=== PATIENT | female | born 1935 | race Caucasian/White ===

== ENCOUNTER 2017-01-18 10:14 | Outpatient (CLI) | payer MEDICARE, BC ==
--- NOTE | 2017-01-18 15:34 | CT ---
CT THORAX WITH IV CONTRAST: 01/18/2017 HISTORY: Breast cancer with history of right lumpectomy. COMPARISON: CT angiogram thorax on 01/15/2006. FINDINGS: There is a low density area within the right breast. There is suggestion of a small nodular density also in the right breast, measuring 11 mm. There is also suggestion of a nodular density in a more posterior depth of the right breast as well. There is mild skin thickening on the right compared t o the left. Vascular calcifications are seen in the coronary arteries, as well as in the thoracic aorta, with ca lcification of the mitral valve annulus. There is no evidence of lymphadenopathy. There is mild scarring seen at the posterior aspect of the upper lobes, near each lung apex. The hugo ngs are otherwise clear. There is no discrete pulmonary nodule, mass, or pleural effusion. The visualized upper abdomen demonstrates evidence of a prior cholecystectomy, with calcified granul omata in the spleen. Multilevel degenerative changes are seen in the thoracic spine. There is glenohumeral osteoarthropathy on the right with degenerative changes in the spine. There is a mixed lichen sclerotic density seen within the right aspect of the sternum; however, this is a stable finding, dating back to a study on 01/15/2006, and has the appearance of a lesion of lo w biological activity. A sclerotic focus is seen within the posterior right second rib, as well as in a mid thoracic vertebral body, which have appearances most suggestive of bone islands. No suspic ious sclerotic lesion or lytic lesion is seen within the visualized osseous structures. IMPRESSION: 1. Small amount of fluid within the right breast, as well as nodular densities in the right breast, adjacent to the region of fluid. There is mild skin thickening on the right, which may be related t o prior therapy. However, findings in the breast would be better evaluated with mammography. 2. No pulmonary nodule or mass is seen within the lungs bilaterally. Minimal chronic lung changes are present. 3. Mixed lytic and sclerotic lesion, which has the appearance of a lesion of low biological activit y in the sternum. This is unchanged compared to a study dating back to 2005. 4. Probable bone islands in the right posterior second rib, as well as a mid thoracic vertebral bod y. 5. Multilevel degenerative changes seen in the thoracic spine. 6. No evidence of lymphadenopathy. POS: [facility]
[2017-01-18] MEDS ORDERED: Iopamidol 370 76% 100 ML VIAL ONE (15:38)
== END 2017-01-18 10:15 | disposition home or self-care (01) ==
LOC: CT 10:14
PROVIDERS: ATTEND Internal Medicine Hematology & Oncology
DX: C50.411 Malignant neoplasm of upper-outer quadrant of right female breast (principal); M47.814 Spondylosis without myelopathy or radiculopathy, thoracic region; M89.8X9 Other specified disorders of bone, unspecified site; R92.8 Other abnormal and inconclusive findings on diagnostic imaging of breast
CPT/HCPCS: 71260

== ENCOUNTER 2017-04-27 13:41 | Outpatient (CLI) | payer MEDICARE, BC | END 2017-04-27 13:42 | disposition home or self-care (01) | LOC: BICMAMMO 13:41 | PROVIDERS: ATTEND Internal Medicine Hematology & Oncology | DX: Z13.820 Encounter for screening for osteoporosis (principal); C50.411 Malignant neoplasm of upper-outer quadrant of right female breast | CPT/HCPCS: 77080 ==

== ENCOUNTER 2018-10-13 07:52 | Inpatient (IN) | payer MEDICARE, BC ==
--- NOTE | 2018-10-13 08:53 | CT ---
EXAM: CT of the cervical spine without contrast HISTORY: Fall from standing with neck pain COMPARISON: None TECHNIQUE: Multiple contiguous axial images were obtained in a CT of the cervical spine without contr ast. Sagittal and coronal reformats were performed. FINDINGS: The vertebral bodies demonstrate normal height and alignment without fracture or subluxatio n. Severe degenerative changes are seen throughout the cervical spine. The patient has had laminectomies throughout the majority of the mid cervical spine. No prevertebral soft tissue swellin g is seen. The posterior facets are well aligned. Normal alignment of the skull base with the cervical spine is seen. The lung apices and cervical soft tissues are unremarkable. IMPRESSION: No evidence of acute osseous abnormality of the cervical spine.
--- NOTE | 2018-10-13 08:53 | CT ---
CT Head without IV contrast COMPARISON: None. HISTORY: Fall from standing position after losing balance. Hit back of head. Injury. Patient on Plavix TECHNIQUE: Axial CT imaging at 5 mm intervals from vertex through skull base without contrast FINDINGS: There is no evidence of an acute infarction, hemorrhage, mass effect, or midline shift. There is decr eased attenuation seen in the periventricular white matter which is nonspecific but likely attributable to chronic small vessel ischemic changes. There is mild cerebral volume loss. The ventri cular system is normal in size, shape, and position for the degree of sulcal atrophy. Visualized paranasal sinuses are clear. Osseous structures appear intact. IMPRESSION: 1. No acute intracranial abnormality demonstrated. 2. Chronic small vessel ischemic changes and cerebral volume loss.
--- NOTE | 2018-10-13 09:39 | RAD ---
EXAM: Right rib series with chest x-ray HISTORY: Rib pain COMPARISON: None FINDINGS: Single view of the chest shows a normal sized cardiomediastinal silhouette. There is no danilo dence of consolidation, mass, or pleural effusion. Multiple views of the right ribs shows no evidence of displaced rib fracture. No underlying pleural t hickening or pneumothorax are seen. IMPRESSION: 1. No evidence of displaced rib fracture. 2. No evidence of acute cardiopulmonary disease.
[2018-10-13 09:56] LABS: #Eosinphils 0.1 thou/uL (0.0-0.7); #Lymphocytes 0.7 thou/uL (1.20-3.40); #Neutrophils 9.1 thou/uL (1.40-6.50); %Basophils 0.2 % (0.0-1.0); %Eosinophils 0.9 % (0.0-10.0); %Lymphocytes 6.7 % (21.0-51.0); %Neutrophils 83.2 % (42.0-75.0); Hemoglobin 9.8 g/dL (12.0-16.0); Mean Corpuscular HGB CONC 32.5 g/dL (32.0-36.0); Mean Corpuscular Hemoglobin 29.9 pg (27.0-31.0); Mean Corpuscular Volume 92.1 fL (78.0-98.0); Mean Platelet Volume 6.2 fL (7.4-10.4); Platelet Count 269 thou/uL (130-400); RBC Distribution Width 12.6 % (11.5-14.5); Red Blood Cell (RBC) Count 3.27 mill/uL (4.20-5.40); White Blood Cell (WBC) Count 10.9 thou/uL (4.8-10.8)
[2018-10-13 10:12] LABS: ALT (SGPT) 25 U/L (8-55); AST (SGOT) 21 U/L (5-34); Albumin 3.9 g/dL (3.4-4.8); Alkaline Phosphatase 67 U/L (40-150); Anion Gap 10 mmol/L (10-20); BUN (Urea Nitrogen) 12 mg/dL (9.8-20.1); Bilirubin, Total 0.7 mg/dL (0.2-1.2); Calc. Creatinine Clearance 0 mL/min (70-130); Calcium 9.5 mg/dL (7.8-10.44); Carbon Dioxide 36 mmol/L (23-31); Chloride 88 mmol/L (98-107); Estimated GFR-MDRD 83; Globulin 2.7 g/dL (2.4-3.5); Glucose 194 mg/dL (83-110); Potassium 4.1 mmol/L (3.5-5.1); Protein, Total 6.6 g/dL (6.0-8.3); Sodium 130 mmol/L (136-145)
[2018-10-13] MEDS ORDERED: Aspirin 325 MG TAB ONE (11:16)
[2018-10-13] MEDS ORDERED: Enoxaparin Sodium 80 MG/0.8 ML SYRINGE ONE (11:16)
[2018-10-13] MEDS ORDERED: Ondansetron PF 4 MG/2 ML Vial IVP PRN (13:43)
[2018-10-13] MEDS ORDERED: Ondansetron ODT 4 MG TAB SL PRN (13:43)
[2018-10-13] MEDS ORDERED: Dextrose 5% in Water 1,000 ML IV PRN (14:38)
[2018-10-13] MEDS ORDERED: Dextrose 50% Abboject 50 ML SYRINGE SLOW IVP PRN (14:38)
[2018-10-13 15:43] LABS: Troponin I 0.415 ng/mL (< 0.028)
[2018-10-13] MEDS ORDERED: Nitroglycerin 2% Ointment 1 INCH/1 GM Packet TOP SCH (16:00)
--- NOTE | 2018-10-13 16:50 | HP ---
CHIEF COMPLAINT: Fall. HISTORY OF PRESENT ILLNESS: This patient is an 83-year-old female, who presented to the hospital following a fall. The patient has had a fairly busy recent medical history. About 6 weeks ago, she started developing some problems with fluid retention. She says she underwent some workup at that time and had CHF ruled out. Her son is present and indicates that they actually diagnosed her with COPD and thought that might have been culprit at that time. She has subsequently been dealing with challenges trying to regulate her diuretics and her blood pressure, but apparently it has been a bit of a challenge. On 09/15, the patient was admitted at [facility] with right occipital and thalamic CVA. 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 She was transferred to [place], where she stayed for approximately a week and then was transferred to [facility]. Last week, she was readmitted at [facility] with hyponatremia and urinary tract infection and was apparently initially around 117 sodium, up to 130. She was then discharged to [place] 2 days ago. Today, the patient was going to the bathroom, apparently shortly after standing, she had a fall. She fell backwards to her right side and fell onto a trash can, injuring her right posterior back area. The patient could not be sure if it was purely a mechanical fall or if she had any lightheadedness or if she had any loss of consciousness. She is certain she did not hit her head. She believes she had just finished using the bathroom and had stood by the sink before she fell. She denies any chest pain before or after the episode, and primarily has pain in the right posterior rib cage area, which is increased with breathing. REVIEW OF SYSTEMS: All other systems reviewed. All pertinent positives and negatives noted in history of present illness. PAST MEDICAL HISTORY: Notable for the above mention prior CVA, history of breast cancer with lumpectomy by Dr. Lamas and management by Dr. Castro. She had external beam radiation. She has some urinary retention requiring a Wells catheter, they have been trying to follow up with Urology; however, she has had a number of other medical issues come up, where she has not been able to do that. She also has type 2 diabetes mellitus, hypothyroidism, hyperlipidemia, and hypertension. PAST SURGICAL HISTORY: Cataract-ectomy, C-spine with Dr. Tam, partial colectomy due to a sessile polyp that could not be removed from the scope. She had a ventral hernia repair and the breast lumpectomy as mentioned above by Dr. Lamas. FAMILY HISTORY: Reviewed and noncontributory. SOCIAL HISTORY: The patient is a former smoker, she quit in 2002. She continues to have a glass of wine in the evening. She is . She is a full code. Her son is her medical power of tax associate attorney. They do indicate they will continue to discuss code status for her. ALLERGIES: AMLODIPINE AND FELODIPINE. CURRENT MEDICATIONS: 1. Anastrozole 1 mg daily. 2. Aspirin 81 mg daily. 3. Atorvastatin 40 mg daily. 4. Carvedilol 25 mg daily. 5. Vitamin D3, 2000 units daily. 6. Plavix 75 mg daily. 7. MiraLAX 17 g daily. 8. Humalog, dosing unclear at this point. 9. Hydralazine 100 mg daily. 10. Isosorbide 30 mg daily. 11. Lantus subcu daily. 12. Levothyroxine 125 mcg daily. 13. Lisinopril 40 mg daily. 14. Metformin 500 mg daily. 15. Sodium chloride tablets 1 g b.i.d. PHYSICAL EXAMINATION: VITAL SIGNS: Temperature 98.7, pulse 93, respirations 20, O2 saturation 99% on 2 L nasal cannula, and blood pressure 162/77. GENERAL APPEARANCE: Age-appropriate female, in no distress. She is awake, alert, oriented, pleasant, and cooperative. HEENT: LESLI. No OP lesions. NECK: Supple and symmetric with no lymphadenopathy, JVD, or carotid bruits. HEART: Regular rate and rhythm without murmurs, gallops, or rubs. LUNGS: Clear to auscultation bilaterally. ABDOMEN: Soft, nontender, and nondistended. Positive bowel sounds. No masses. No organomegaly. EXTREMITIES: No cyanosis, clubbing, or edema. MUSCULOSKELETAL: Does reveal ecchymoses and bruising over the right posterior rib cage area. She also has a well-healed posterior cervical incisional scar. : Notable for Wells. NEUROLOGIC: The patient appears to move all extremities spontaneously. Cranial nerves are intact. She appears to be relatively cognitively intact, although the family reports she has had some cognitive issues following the stroke. PSYCHIATRIC: Normal affect and behavior. LABORATORY DATA: White count 10.9, hemoglobin 9.8, platelets 269. Sodium 130, potassium 4.1, chloride 88, CO2 is 36, BUN 12, creatinine 0.68, glucose 194, total bilirubin 0.7, AST 21, ALT 25, alkaline phosphatase 67. Troponin 0.401. Albumin 3.9. CT brain, chronic small-vessel ischemia and cerebral volume loss. C-spine, negative. Rib x-rays, no evidence of displaced fracture. Chest x-ray is normal. EKG shows some ST and T-wave changes in the anterior precordial leads. IMPRESSION AND PLAN: 1. Abnormal EKG suggestive of ischemic changes with elevated troponin, concerning for wee-BY-pjbergd elevation myocardial infarction. The patient actually denied any chest pains or symptoms of cardiac ischemia, and only presented with a fall injury. However, EKG and troponins are concerning. I have notified Dr. Chandler. We will consult him. She is admitted to telemetry. We will get serial enzymes. We will add some Nitropaste as well, keeping her n.p.o. for the moment. The patient did receive therapeutic dose of Lovenox as well as 325 aspirin in the emergency department. 2. Fall injury with right posterior rib contusions. 3. Hyponatremia. The patient appears to be where she was at the time of her discharge a couple of days ago from [facility]. We will continue with salt tablets and fluid restriction. 4. Diabetes mellitus. Holding metformin. Accu-Cheks, sliding scale insulin. 5. History of CVA. Continue aspirin and Plavix. 6. Hypertension. Continue lisinopril, hydralazine, and Imdur. 7. Urinary retention. Continue the indwelling Wells catheter. 8. Anemia with hemoglobin of 9.8, down from 11.4 on 10/05, and she appears to be running about low to mid 11 range. We will need to trend, could be some ecchymoses related to the fall and rib contusion. Job ID: [id number]
[2018-10-13] MEDS: Carvedilol 25 MG TAB PO SCH (17:30)
[2018-10-13] MEDS: hydrALAZINE 25 MG TAB PO SCH ×2 (17:37→20:54)
--- NOTE | 2018-10-13 20:32 | CON ---
DATE OF CONSULTATION: REASON FOR CONSULTATION: Elevated troponin, abnormal EKG. HISTORY OF PRESENT ILLNESS: Ms. Coombs is an 83-year-old woman who is a patient of Dr. Tavares Moreno. She recently presented with a fall. Based on her history and the history from the ER, this appeared to be due to being off balance. The patient does have underlying dementia. She also has significant vascular disease. She has no previous history of documented underlying coronary artery disease. She denies chest pain, pressure, or shortness of breath. Her initial troponin was 0.4. Followup troponin was unchanged. Her CK-MB was also 4.0. PAST MEDICAL HISTORY: Severe carotid disease, recurrent CVA, breast cancer with lumpectomy, dementia, urinary retention, diabetes mellitus, hypothyroidism, hyperlipidemia, hypertension, cataract surgery, partial colectomy, ventral hernia repair, lumpectomy. SOCIAL HISTORY: No current tobacco or alcohol use. ALLERGIES: AMLODIPINE AND FELODIPINE. MEDICATIONS: Include: 1. Aspirin. 2. Atorvastatin. 3. Carvedilol. 4. Vitamin D3. 5. Plavix. 6. MiraLAX. 7. Humalog. 8. Hydralazine. 9. Isosorbide. 10. Lantus. 11. Levothyroxine. 12. Lisinopril. 13. Metformin. REVIEW OF SYSTEMS: A 10-point review of systems is reviewed and as above, otherwise negative. PHYSICAL EXAMINATION: VITAL SIGNS: Blood pressure 130/81, pulse 89, temperature 98.7. GENERAL: Patient is a pleasant 83-year-old female who is in no acute distress. The patient appears their stated age. NEUROLOGIC: The patient is alert and oriented x3 with no focal neurologic deficits. HEENT: Sclerae without icterus. Mouth has moist mucous membranes with normal pallor. NECK: No JVD. Carotid upstroke brisk. No bruits bilaterally. LUNGS: Clear to auscultation with unlabored respirations. BACK: No scoliosis or kyphosis. CARDIAC: Regular rate and rhythm with normal S1 and S2. No S3 or S4 noted. No significant rubs, murmurs, thrills, or gallops noted throughout the precordium. PMI is not displaced. There is no parasternal heave. ABDOMEN: Soft, nontender, nondistended. No peritoneal signs present. No hepatosplenomegaly. No abnormal striae. EXTREMITIES: 2+ femoral and 2+ dorsalis pedis pulses. No cyanosis, clubbing, or edema. SKIN: No gross abnormalities. LABORATORY DATA: Troponin as above. Creatinine 0.6. EKG shows normal sinus rhythm with biphasic T-waves. IMPRESSION: 1. Recent fall. 2. Elevated troponin. 3. Abnormal EKG. 4. Risk factors for coronary artery disease. 5. Dementia. RECOMMENDATIONS: Certainly, a difficult case with Ms. Coombs. She has no current symptoms suggesting angina. She did state Dr. Moreno recommended coronary angiography several years ago, but was not ready to proceed. Her CK-MB appears normal. If she had an event, her event likely occurred several days ago given elevated troponin and normal CK-MB. She is currently stable. I did discuss medical therapy versus coronary angiography. The patient and son are undecided. They are leaning toward medical therapy. Given her underlying dementia, significant vascular disease, previous CVA and no current symptoms, we would certainly agree. We would recommend echo Doppler to assess her LVEF. Otherwise, I have no further recommendations. Job ID: [id number]
[2018-10-13] MEDS: Atorvastatin Calcium 40 MG TAB PO SCH (20:54)
[2018-10-13] MEDS: levETIRAcetam 500 MG TAB PO SCH (20:54)
[2018-10-13] MEDS: Sodium Chloride 1 GM TAB PO SCH (20:55)
[2018-10-13] MEDS: HumaLOG 300 UNITS/3 ML VIAL SC PRN (21:41)
[2018-10-14 05:39] LABS: Troponin I 0.192 ng/mL (< 0.028)
[2018-10-14 05:40] LABS: Anion Gap 12 mmol/L (10-20); BUN (Urea Nitrogen) 25 mg/dL (9.8-20.1); Calc. Creatinine Clearance 47 mL/min (70-130); Carbon Dioxide 33 mmol/L (23-31); Chloride 91 mmol/L (98-107); Estimated GFR-MDRD 51; Glucose 130 mg/dL (83-110); Potassium 4.2 mmol/L (3.5-5.1); Sodium 132 mmol/L (136-145)
[2018-10-14 05:47] LABS: Band 6 % (5-11); Eosinophils 1 % (0-10); Hemoglobin 7.5 g/dL (12.0-16.0); Lymphocytes 20 % (21-51); MDiff Complete? YES; Mean Corpuscular Hemoglobin 30.7 pg (27.0-31.0); Mean Corpuscular Volume 90.3 fL (78.0-98.0); Mean Platelet Volume 6.1 fL (7.4-10.4); Monocytes 11 % (0-10); Neutrophil 62 % (42-75); Platelet Count 169 thou/uL (130-400); Platelet Morphology Comment Appears Adequate; RBC Distribution Width 12.4 % (11.5-14.5); Red Blood Cell (RBC) Count 2.46 mill/uL (4.20-5.40); White Blood Cell (WBC) Count 5.8 thou/uL (4.8-10.8)
[2018-10-14] MEDS: Levothyroxine Sodium 125 MCG TAB PO SCH (05:49)
[2018-10-14] MEDS: Aspirin 81 mg Enteric Coated Tablet PO SCH (08:52)
[2018-10-14] MEDS: levETIRAcetam 500 MG TAB PO SCH ×2 (08:52→20:00)
[2018-10-14] MEDS: Multivit, Therapeutic 1 TAB PO SCH (08:52)
[2018-10-14] MEDS: Carvedilol 25 MG TAB PO SCH ×2 (08:53→17:10)
[2018-10-14] MEDS: Lisinopril 20 MG TAB PO SCH (08:53)
[2018-10-14] MEDS: hydrALAZINE 25 MG TAB PO SCH ×3 (08:55→20:00)
[2018-10-14] MEDS: Anastrozole 1 MG TAB PO SCH (08:56)
[2018-10-14] MEDS: Polyethylene Glycol 3350 17 GM Packet PO SCH (08:57)
[2018-10-14] MEDS: Sodium Chloride 1 GM TAB PO SCH ×2 (08:57→20:00)
[2018-10-14] MEDS ORDERED: Clopidogrel Bisulfate 75 MG TAB PO SCH (09:00)
[2018-10-14] MEDS: HumaLOG 300 UNITS/3 ML VIAL SC PRN ×3 (12:39→21:11)
--- NOTE | 2018-10-14 14:57 | PDOC.HOSPP ---
- Subjective Subjective: 83 y/o female with multiple co morbidities including recent acute CVA, COPD and others admitted after a fall. Complains of generalized weakness. No fever. Still having right posterior chest pain. - Objective Vital Signs & Weight: Vital Signs (12 hours) Temp Pulse Resp BP Pulse Ox 10/14/18 12:43 97.6 F 78 23 H 106/55 L 96 10/14/18 08:56 98 10/14/18 07:06 97.7 F 74 19 121/58 L 98 10/14/18 03:25 97.4 F L 69 16 109/52 L 99 Weight Weight 163 lb 11.2 oz I&O: 10/13/18 10/14/18 10/15/18 06:59 06:59 06:59 Intake Total 370 Output Total 250 Balance 120 Result Diagrams: 10/14/18 04:58 10/14/18 04:58 Additional Labs: Accuchecks 10/14/18 10/14/18 10/13/18 11:04 05:21 20:29 POC Glucose 223 H 140 H 269 H 10/13/18 15:33 POC Glucose 147 H ROS - Review of Systems All systems: All other ROS were reviewed and found negative. - Medication Medications: Active Medications Generic Name Dose Route Start Last Admin Trade Name Freq PRN Reason Stop Dose Admin Anastrozole 1 mg 10/14/18 09:00 10/14/18 08:56 Arimidex PO 1 mg DAILY MATTHEW Administration Aspirin 81 mg 10/14/18 09:00 10/14/18 08:52 Ecotrin PO 81 mg DAILY MATTHEW Administration Atorvastatin Calcium 40 mg 10/13/18 21:00 10/13/18 20:54 Lipitor PO 40 mg HS MATTHEW Administration Carvedilol 25 mg 10/13/18 17:00 10/14/18 08:53 Coreg PO 25 mg BID-WM MATTHEW Administration Cholecalciferol 2,000 units 10/14/18 09:00 10/14/18 08:51 Vitamin D3 PO 2,000 units DAILY MATTHEW Administration Clopidogrel Bisulfate 75 mg 10/14/18 09:00 10/14/18 08:54 Plavix PO 75 mg DAILY MATTHEW Administration Hydralazine HCl 100 mg 10/13/18 15:00 10/14/18 08:55 Apresoline PO 100 mg TID MATTHEW Administration Insulin Human Lispro 0 units 10/13/18 14:38 10/14/18 12:39 Humalog SC 3 unit .MILD SLIDING SCALE PRN Administration Mild Correctional Scale Insulin Human Lispro 0 units 10/13/18 21:09 10/13/18 21:41 Humalog SC 3 unit .BEDTIME SLIDING SC PRN Administration Bedtime Correctional Scale Isosorbide Mononitrate 30 mg 10/14/18 09:00 10/14/18 08:51 Imdur Er PO 30 mg DAILY MATTHEW Administration Levetiracetam 1,000 mg 10/13/18 21:00 10/14/18 08:52 Keppra PO 1,000 mg BID MATTHEW Administration Levothyroxine Sodium 125 mcg 10/14/18 06:00 10/14/18 05:49 Synthroid PO 125 mcg 0600 MATTHEW Administration Lisinopril 40 mg 10/14/18 09:00 10/14/18 08:53 Zestril PO 40 mg DAILY MATTHEW Administration Multivitamins 1 tab 10/14/18 09:00 10/14/18 08:52 Theragran PO 1 tab DAILY MATTHEW Administration Polyethylene Glycol 17 gm 10/14/18 09:00 10/14/18 08:57 Miralax PO 17 gm DAILY MATTHEW Administration Sodium Chloride 1 gm 10/13/18 21:00 10/14/18 08:57 Sodium Chloride PO 1 gm BID MATTHEW Administration - Exam NAD (obese), awake alert Eye: PERRL ENT: normocephalic atraumatic Neck: supple, no JVD, no Thyromegaly Heart: RRR, no murmur Respiratory: no wheezes (fair air entry bilaterally. Right posterior mid chest bruise and tenderness noted.), no ronchi Gastrointestinal: soft, non-tender, non-distended, normal bowel sounds (obese. Wells catheter in place) Extremities: no cyanosis, no edema Neurological: CN's grossly intact Psychiatric: A&O x 3 Hosp A/P (1) Elevated troponin Code(s): R74.8 - ABNORMAL LEVELS OF OTHER SERUM ENZYMES Status: Acute (2) Hyponatremia Code(s): E87.1 - HYPO-OSMOLALITY AND HYPONATREMIA Status: Acute (3) Urinary retention Code(s): R33.9 - RETENTION OF URINE, UNSPECIFIED Status: Acute (4) Diabetes mellitus Code(s): E11.9 - TYPE 2 DIABETES MELLITUS WITHOUT COMPLICATIONS Status: Acute (5) Carotid atherosclerosis Code(s): I65.29 - OCCLUSION AND STENOSIS OF UNSPECIFIED CAROTID ARTERY Status : Acute (6) Contusion of rib on right side Code(s): S20.211A - CONTUSION OF RIGHT FRONT WALL OF THORAX, INITIAL ENCOUNTER Status: Acute (7) Physical deconditioning Code(s): R53.81 - OTHER MALAISE Status: Acute (8) Gait instability Code(s): R26.81 - UNSTEADINESS ON FEET Status: Acute (9) HTN (hypertension) Code(s): I10 - ESSENTIAL (PRIMARY) HYPERTENSION Status: Chronic (10) Hypothyroidism Code(s): E03.9 - HYPOTHYROIDISM, UNSPECIFIED Status: Chronic (11) Obesity (BMI 30.0-34.9) Code(s): E66.9 - OBESITY, UNSPECIFIED Status: Chronic - Plan Continue current medications. Start incentive spirometrty PT/OT eval and treat Continue cardiac medication optimization and patient and relatives elected for medical mgt. Follow labs.
--- NOTE | 2018-10-14 16:47 | PRG ---
DATE OF SERVICE: 10/14/2018 SUBJECTIVE: Ms. Coombs is doing well. No current complaints. No chest pain, pressure, shortness of breath, or associated symptoms. OBJECTIVE: GENERAL: Patient is a pleasant female, who is in no acute distress. The patient appears their stated age. VITAL SIGNS: Blood pressure 128/61, pulse 84, and temperature 98.6. NEUROLOGIC: The patient is alert and oriented x3 with no focal neurologic deficits. HEENT: Sclerae without icterus. Mouth has moist mucous membranes with normal pallor. NECK: No JVD. Carotid upstroke brisk. No bruits bilaterally. LUNGS: Clear to auscultation with unlabored respirations. BACK: No scoliosis or kyphosis. CARDIAC: Regular rate and rhythm with normal S1 and S2. No S3 or S4 noted. No significant rubs, murmurs, thrills, or gallops noted throughout the precordium. PMI is not displaced. There is no parasternal heave. ABDOMEN: Soft, nontender, nondistended. No peritoneal signs present. No hepatosplenomegaly. No abnormal striae. EXTREMITIES: 2+ femoral and 2+ dorsalis pedis pulses. No cyanosis, clubbing, or edema. SKIN: No gross abnormalities. LABORATORY DATA: Troponin 0.192. Hemoglobin 7.5. IMPRESSION: 1. Type 2 myocardial infarction secondary to demand ischemia. 2. Recent fall. 3. Anemia. RECOMMENDATIONS: The patient has had significant drop in her hemoglobin overnight. We will stop Plavix. Continue carvedilol, atorvastatin, and aspirin. Also, continue isosorbide. The patient is opted to proceed with medical therapy. She is not interested in proceeding with a more aggressive approach. We would certainly agree. She has several comorbidities. At this point, it would not be advantageous given no current symptoms. We will review her echo. Job ID: [id number]
[2018-10-14] MEDS: Atorvastatin Calcium 40 MG TAB PO SCH (20:00)
[2018-10-15 04:39] LABS: #Eosinphils 0.1 thou/uL (0.0-0.7); #Lymphocytes 0.6 thou/uL (1.20-3.40); #Monocytes 0.7 thou/uL (0.11-0.59); #Neutrophils 3.9 thou/uL (1.40-6.50); %Basophils 0.1 % (0.0-1.0); %Eosinophils 1.3 % (0.0-10.0); %Lymphocytes 11.5 % (21.0-51.0); %Monocytes 13.5 % (0.0-10.0); %Neutrophils 73.5 % (42.0-75.0); Mean Corpuscular HGB CONC 34.2 g/dL (32.0-36.0); Mean Corpuscular Hemoglobin 31.1 pg (27.0-31.0); Mean Platelet Volume 6.7 fL (7.4-10.4); Platelet Count 158 thou/uL (130-400); RBC Distribution Width 12.3 % (11.5-14.5); Red Blood Cell (RBC) Count 2.24 mill/uL (4.20-5.40); White Blood Cell (WBC) Count 5.3 thou/uL (4.8-10.8)
[2018-10-15 04:57] LABS: Anion Gap 13 mmol/L (10-20); BUN (Urea Nitrogen) 31 mg/dL (9.8-20.1); Calc. Creatinine Clearance 58 mL/min (70-130); Calcium 8.7 mg/dL (7.8-10.44); Carbon Dioxide 31 mmol/L (23-31); Chloride 90 mmol/L (98-107); Estimated GFR-MDRD 62; Glucose 201 mg/dL (83-110); Sodium 130 mmol/L (136-145)
[2018-10-15] MEDS: Levothyroxine Sodium 125 MCG TAB PO SCH (05:24)
[2018-10-15] MEDS: Acetaminophen 325 MG TAB PO PRN (07:58)
[2018-10-15] MEDS: Anastrozole 1 MG TAB PO SCH (08:35)
[2018-10-15] MEDS: Lisinopril 20 MG TAB PO SCH (08:35)
[2018-10-15] MEDS: Sodium Chloride 1 GM TAB PO SCH ×2 (08:35→21:13)
[2018-10-15] MEDS: Multivit, Therapeutic 1 TAB PO SCH (08:35)
[2018-10-15] MEDS: levETIRAcetam 500 MG TAB PO SCH ×2 (08:36→21:13)
[2018-10-15] MEDS: Aspirin 81 mg Enteric Coated Tablet PO SCH (08:36)
[2018-10-15] MEDS: hydrALAZINE 25 MG TAB PO SCH ×3 (08:36→21:13)
[2018-10-15] MEDS: Polyethylene Glycol 3350 17 GM Packet PO SCH (08:37)
[2018-10-15] MEDS: Carvedilol 25 MG TAB PO SCH ×2 (08:37→18:04)
[2018-10-15] MEDS: HumaLOG 300 UNITS/3 ML VIAL SC PRN ×3 (12:09→21:19)
[2018-10-15 13:09] LABS: Bacteria/HPF None Seen HPF (None Seen); WBC/HPF 0-3 HPF (0-3)
[2018-10-15 14:43] LABS: Reticulocyte Count 4.4 % (0.5-1.5)
[2018-10-15 15:01] LABS: Iron 22 ug/dL (50-170); Iron Binding Capacity, Total 238 mcg/dL (265-497)
[2018-10-15 15:39] LABS: Folate (Folic Acid) 14.5 ng/mL (7.0-31.4)
--- NOTE | 2018-10-15 16:22 | PDOC.CTH ---
Cardiology Progress Note - Subjective The pt seen and examined. No overnight events. No cardiac complaints. - Objective Vital Signs Temp Pulse Pulse Pulse Resp BP BP 10/15/18 15:09 98.2 F 85 24 H 10/15/18 13:30 78 85 104/48 L 120/57 L 10/15/18 12:00 98.1 F 75 25 H 10/15/18 08:28 10/15/18 07:32 98.4 F 89 21 H BP Pulse Ox 10/15/18 15:09 129/60 96 10/15/18 13:30 10/15/18 12:00 108/51 L 97 10/15/18 08:28 97 10/15/18 07:32 163/70 H 97 Weight 167 lb 1.6 oz 10/14/18 10/15/18 10/16/18 06:59 06:59 06:59 Intake Total 370 1320 Output Total 250 825 Balance 120 495 - Labs Result Diagrams: 10/15/18 04:17 10/15/18 04:17 Troponin/CKMB CK-MB (CK-2) 4.0 ng/mL (0-6.6) 10/13/18 09:36 Troponin I 0.192 ng/mL (< 0.028) H 10/13/18 14:46 - Assessment/Plan 1. Elevated troponin - The pt is not good candidate for cardiac cath 2/2 anemia (hgb 7.0), hx of recurrent CVA, and dementia 2. HTN - stable 3. HLD - on Statin 4. DM type 2 - 5. Hypothyroidism - 6. Dementia 7. hx of multiple falls; recent event was on 10/14/2018 8. Carotid atherosclerosis - MAR reviewed Pt. seen and eval. by me. I agree with the A/P by the P[employer] TE[employer].Difficult situation for this pt. No BM yet to eval. stools for possible GI blood loss. gjm * Dr Moreno's pt; Dr Chandler will f/u during this admission Review of Systems - Review of Systems Constitutional: reports: weakness EENTM: reports: no symptoms reported Respiratory: reports: no symptoms reported Cardiac (ROS): reports: no symptoms reported ABD/GI: reports: no symptoms reported : reports: no symptoms reported Musculoskeletal: reports: neck pain
--- NOTE | 2018-10-15 17:49 | PDOC.HOSPP ---
- Subjective Subjective: Ms. Coombs was seen today in follow-up of generalized weakness and fall. She does not have any new complaints. She appears quite weak and frail. - Objective Vital Signs & Weight: Vital Signs (12 hours) Temp Pulse Pulse Pulse Resp BP BP 10/15/18 15:09 98.2 F 85 24 H 10/15/18 13:30 78 85 104/48 L 120/57 L 10/15/18 12:00 98.1 F 75 25 H 10/15/18 08:28 10/15/18 07:32 98.4 F 89 21 H BP Pulse Ox 10/15/18 15:09 129/60 96 10/15/18 13:30 10/15/18 12:00 108/51 L 97 10/15/18 08:28 97 10/15/18 07:32 163/70 H 97 Weight Weight 167 lb 1.6 oz I&O: 10/14/18 10/15/18 10/16/18 06:59 06:59 06:59 Intake Total 370 1320 Output Total 250 825 Balance 120 495 Result Diagrams: 10/15/18 04:17 10/15/18 04:17 Additional Labs: Accuchecks 10/15/18 10/15/18 10/15/18 17:00 11:13 05:11 POC Glucose 233 H 293 H 209 H 10/14/18 20:14 POC Glucose 321 H ROS - Review of Systems All systems: All other ROS were reviewed and found negative. - Medication Medications: Active Medications Generic Name Dose Route Start Last Admin Trade Name Freq PRN Reason Stop Dose Admin Acetaminophen 650 mg 10/15/18 07:44 10/15/18 07:58 Tylenol PO 650 mg Q4H PRN Administration Headache/Fever or Pain Albuterol/Ipratropium 3 ml 10/14/18 21:35 10/14/18 23:24 Duoneb NEB 3 ml [id number] PRN Administration SOB &/or Wheezing Anastrozole 1 mg 10/14/18 09:00 10/15/18 08:35 Arimidex PO 1 mg DAILY MATTHEW Administration Aspirin 81 mg 10/14/18 09:00 10/15/18 08:36 Ecotrin PO 81 mg DAILY AMTTHEW Administration Atorvastatin Calcium 40 mg 10/13/18 21:00 10/14/18 20:00 Lipitor PO 40 mg HS MATTHEW Administration Carvedilol 25 mg 10/13/18 17:00 10/15/18 08:37 Coreg PO 25 mg BID-WM MATTHEW Administration Cholecalciferol 2,000 units 10/14/18 09:00 10/15/18 08:36 Vitamin D3 PO 2,000 units DAILY MATTHEW Administration Hydralazine HCl 100 mg 10/13/18 15:00 10/15/18 15:14 Apresoline PO 100 mg TID MATTHEW Administration Insulin Human Lispro 0 units 10/13/18 14:38 10/15/18 12:09 Humalog SC 4 unit .MILD SLIDING SCALE PRN Administration Mild Correctional Scale Insulin Human Lispro 0 units 10/13/18 21:09 10/14/18 21:11 Humalog SC 4 unit .BEDTIME SLIDING SC PRN Administration Bedtime Correctional Scale Isosorbide Mononitrate 30 mg 10/14/18 09:00 10/15/18 08:37 Imdur Er PO 30 mg DAILY MATTHEW Administration Levetiracetam 1,000 mg 10/13/18 21:00 10/15/18 08:36 Keppra PO 1,000 mg BID MATTHEW Administration Levothyroxine Sodium 125 mcg 10/14/18 06:00 10/15/18 05:24 Synthroid PO 125 mcg 0600 MATTHEW Administration Lisinopril 40 mg 10/14/18 09:00 10/15/18 08:35 Zestril PO 40 mg DAILY MATTHEW Administration Multivitamins 1 tab 10/14/18 09:00 10/15/18 08:35 Theragran PO 1 tab DAILY MATTHEW Administration Polyethylene Glycol 17 gm 10/14/18 09:00 10/15/18 08:37 Miralax PO 17 gm DAILY MATTHEW Administration Sodium Chloride 1 gm 10/13/18 21:00 10/15/18 08:35 Sodium Chloride PO 1 gm BID MATTHEW Administration - Exam Eye: PERRL, anicteric sclera ENT: normocephalic atraumatic Heart: RRR, no murmur, no gallops, no rubs Respiratory: CTAB, no wheezes, no rales, no ronchi Gastrointestinal: soft, non-tender, non-distended, normal bowel sounds Extremities: no cyanosis, 1+ LE edema Hosp A/P (1) Elevated troponin Code(s): R74.8 - ABNORMAL LEVELS OF OTHER SERUM ENZYMES Status: Acute (2) Anemia, normocytic normochromic Code(s): D64.9 - ANEMIA, UNSPECIFIED Status: Acute (3) Hyponatremia Code(s): E87.1 - HYPO-OSMOLALITY AND HYPONATREMIA Status: Acute (4) Physical deconditioning Code(s): R53.81 - OTHER MALAISE Status: Acute (5) CKD (chronic kidney disease) stage 2, GFR 60-89 ml/min Code(s): N18.2 - CHRONIC KIDNEY DISEASE, STAGE 2 (MILD) Status: Chronic (6) DM2 (diabetes mellitus, type 2) Status: Chronic (7) HTN (hypertension) Code(s): I10 - ESSENTIAL (PRIMARY) HYPERTENSION Status: Chronic - Plan * Elevated troponins- this is being evaluated by Cardiology. she has decided on non-invasive management, and medical therapy * Echo results were noted * Severe anemia- will check iron studies, and stool for occult blood. She may require transfusion * HTN- Blood pressure is stable * Hyponatremia- stable * Recent CVA- stable
[2018-10-15] MEDS: Atorvastatin Calcium 40 MG TAB PO SCH (21:13)
[2018-10-16] MEDS ORDERED: Furosemide 40 MG/4 ML VIAL ONE (04:14)
[2018-10-16 04:28] LABS: Actual Bicarbonate (HCO3a) 34.8 mEq/L (22-28); Base Excess (BEa) 7.8 mEq/L (-2.0 to +3.0); Calcium, Ionized 1.15 mmol/L (1.12-1.30); Carboxyhemoglobin (COHb) 1.4 gm% (0.0-3.0); O2 Tension (PaO2) 153.7 mmHg (> 60.0); Potassium - ABG Lab 4.26 mmol/L (3.70-5.30); pH, Arterial 7.34 (7.35-7.45)
[2018-10-16 04:29] LABS: CO2 Tension 66.7 mmHg (35.0-45.0)
[2018-10-16 04:30] LABS: ALV-art Gradient 48.125 (0-20)
[2018-10-16 04:45] LABS: #Eosinphils 0.2 thou/uL (0.0-0.7); #Monocytes 0.9 thou/uL (0.11-0.59); #Neutrophils 12.5 thou/uL (1.40-6.50); %Basophils 0.2 % (0.0-1.0); %Eosinophils 1.4 % (0.0-10.0); %Lymphocytes 6.6 % (21.0-51.0); %Monocytes 6.1 % (0.0-10.0); %Neutrophils 85.7 % (42.0-75.0); Hemoglobin 8.1 g/dL (12.0-16.0); Mean Corpuscular Volume 91.4 fL (78.0-98.0); Mean Platelet Volume 6.9 fL (7.4-10.4); Platelet Count 239 thou/uL (130-400); RBC Distribution Width 12.7 % (11.5-14.5); Red Blood Cell (RBC) Count 2.62 mill/uL (4.20-5.40); White Blood Cell (WBC) Count 14.6 thou/uL (4.8-10.8)
[2018-10-16 05:03] LABS: Lactic Acid 1.1 mmol/L (0.5-2.2)
[2018-10-16 05:14] LABS: ALT (SGPT) 19 U/L (8-55); AST (SGOT) 14 U/L (5-34); Albumin 3.7 g/dL (3.4-4.8); Alkaline Phosphatase 53 U/L (40-150); Anion Gap 13 mmol/L (10-20); BUN (Urea Nitrogen) 27 mg/dL (9.8-20.1); Bilirubin, Direct 0.5 mg/dL (0.1-0.3); Calc. Creatinine Clearance 67 mL/min (70-130); Calcium 9.3 mg/dL (7.8-10.44); Carbon Dioxide 32 mmol/L (23-31); Chloride 91 mmol/L (98-107); Estimated GFR-MDRD 71; Glucose 309 mg/dL (83-110); Magnesium 1.6 mg/dL (1.6-2.6); Potassium 4.4 mmol/L (3.5-5.1); Protein, Total 6.5 g/dL (6.0-8.3); Sodium 132 mmol/L (136-145)
[2018-10-16] MEDS: Levothyroxine Sodium 125 MCG TAB PO SCH (06:05)
[2018-10-16] MEDS: HumaLOG 300 UNITS/3 ML VIAL SC PRN ×4 (06:24→21:07)
--- NOTE | 2018-10-16 09:12 | CON ---
DATE OF CONSULTATION: HISTORY OF PRESENT ILLNESS: An 83-year-old female from [place], who on 10/13/2018, sustained a fall, hitting the back of the head, complained of chest pain. X-ray was taken at that time with no new infiltrates were seen. She otherwise denied any other problem. [facility] for ongoing hyponatremia. As of yesterday, she developed an episode of what appears to be diaphoretic, looked in distress. Her sats were low apparently 70% on 2 L. She was transferred back to the ICU and was to be placed on noninvasive ventilation. None was done. Chest x-ray shows what looks like maybe a little bit of cephalization CHF. She was given 40 of Lasix, neb treatment, and transferred to the ICU. This morning, her sats are 96% on 2 L. PAST MEDICAL HISTORY: Otherwise, pertinent for previous CVA, history of hypertension, and diabetes. PAST SURGICAL HISTORY: Previous surgery included breast lumpectomy, neck surgery. She was seen by Cardiology earlier. Hypothyroidism, hyperlipidemia, elevated CK-MB. She apparently has underlying dementia. HABITS: Apparently, alcohol none, tobacco none. HOME MEDICATIONS: Includes, 1. Metformin 500. 2. Hydralazine 100. 3. Melatonin. 4. Zestril 40. 5. Synthroid 125. 6. Keppra 1000 twice a day. 7. Ismo 30. 8. Insulin. 9. Plavix 75. 10. Coreg 25. 11. Aspirin. 12. Arimidex. ALLERGIES: AMLODIPINE. SHE WAS IN THIS HOSPITAL WHEN SHE UNDERWENT A LAMINECTOMY IN 2017. REVIEW OF SYSTEMS: Otherwise unremarkable. PHYSICAL EXAMINATION: GENERAL: She appears to be in no acute distress. VITAL SIGNS: Sats are 97% on 2 L, blood pressure 179/78, pulse rate respiratory rate 18. CHEST: No wheezing or crackles. CARDIAC: Normal S1, S2. No gallops. ABDOMEN: No masses. LABORATORY DATA: White count 14,000, H and H are 8 and 26, platelet count 233, normal. PO2 is 153, pCO2 is 66, pH is 7.34 on 40%. Lytes are normal. Sodium 132. BNP is elevated . IMAGING STUDIES: X-ray shows small pleural effusion. Echo shows diastolic dysfunction. IMPRESSION: 1. Hypoxemia, respiratory failure, diastolic dysfunction, congestive heart failure. 2. History of cerebrovascular accident. 3. History of cervical laminectomy. 4. Hypothyroidism. 5. Diabetes. 6. Seizure disorder. PLAN: Pulmonary cooper, continue supportive care. Continue cardiac care. Pulmonary will follow while in the ICU. Early ambulation and PT. Consultation note, 70 minutes, 50% direct patient care. Job ID: [id number]
--- NOTE | 2018-10-16 09:55 | PDOC.HOSPP ---
- Subjective Subjective: Ms. Coombs was seen today in follow-up of generalized weakness. She was tranferred to the ICU due to hypoxemia. She was placed on supplemental oxygen and is feeling better. Bipap was not started. - Objective Vital Signs & Weight: Vital Signs (12 hours) Pulse Resp BP Pulse Ox 10/16/18 05:25 93 L 10/16/18 04:39 101 H 24 H 98 10/16/18 04:05 71 L 10/15/18 23:15 90 127/58 L Weight Weight 169 lb 5.04 oz Most Recent Monitor Data Heart Rate from ECG 100 NIBP 179/78 NIBP BP-Mean 111 Respiration from ECG 21 SpO2 97 I&O: 10/15/18 10/16/18 10/17/18 06:59 06:59 06:59 Intake Total 1320 1035 Output Total 825 630 Balance 495 405 Result Diagrams: 10/16/18 04:35 10/16/18 04:35 Additional Labs: Accuchecks 10/16/18 10/15/18 10/15/18 04:01 20:05 17:00 POC Glucose 343 H 307 H 233 H 10/15/18 11:13 POC Glucose 293 H ROS - Review of Systems All systems: All other ROS were reviewed and found negative. - Medication Medications: Active Medications Generic Name Dose Route Start Last Admin Trade Name Freq PRN Reason Stop Dose Admin Acetaminophen 650 mg 10/15/18 07:44 10/15/18 07:58 Tylenol PO 650 mg Q4H PRN Administration Headache/Fever or Pain Albuterol/Ipratropium 3 ml 10/14/18 21:35 10/16/18 04:39 Duoneb NEB 3 ml [id number] PRN Administration SOB &/or Wheezing Anastrozole 1 mg 10/14/18 09:00 10/15/18 08:35 Arimidex PO 1 mg DAILY MATTHEW Administration Aspirin 81 mg 10/14/18 09:00 10/15/18 08:36 Ecotrin PO 81 mg DAILY MATTHEW Administration Atorvastatin Calcium 40 mg 10/13/18 21:00 10/15/18 21:13 Lipitor PO 40 mg HS MATTHEW Administration Carvedilol 25 mg 10/13/18 17:00 10/15/18 18:04 Coreg PO 25 mg BID-WM MATTHEW Administration Cholecalciferol 2,000 units 10/14/18 09:00 10/15/18 08:36 Vitamin D3 PO 2,000 units DAILY MATTHEW Administration Hydralazine HCl 100 mg 10/13/18 15:00 10/15/18 21:13 Apresoline PO 100 mg TID MATTHEW Administration Insulin Human Lispro 0 units 10/13/18 14:38 10/16/18 06:24 Humalog SC 5 unit .MILD SLIDING SCALE PRN Administration Mild Correctional Scale Insulin Human Lispro 0 units 10/13/18 21:09 10/15/18 21:19 Humalog SC 4 unit .BEDTIME SLIDING SC PRN Administration Bedtime Correctional Scale Isosorbide Mononitrate 30 mg 10/14/18 09:00 10/15/18 08:37 Imdur Er PO 30 mg DAILY MATTHEW Administration Levetiracetam 1,000 mg 10/13/18 21:00 10/15/18 21:13 Keppra PO 1,000 mg BID MATTHEW Administration Levothyroxine Sodium 125 mcg 10/14/18 06:00 10/16/18 06:05 Synthroid PO 125 mcg 0600 MATTHEW Administration Lisinopril 40 mg 10/14/18 09:00 10/15/18 08:35 Zestril PO 40 mg DAILY MATTHEW Administration Multivitamins 1 tab 10/14/18 09:00 10/15/18 08:35 Theragran PO 1 tab DAILY MATTHEW Administration Polyethylene Glycol 17 gm 10/14/18 09:00 10/15/18 08:37 Miralax PO 17 gm DAILY MATTHEW Administration Sodium Chloride 1 gm 10/13/18 21:00 10/15/18 21:13 Sodium Chloride PO 1 gm BID MATTHEW Administration - Exam Eye: PERRL, anicteric sclera Respiratory: CTAB (+ decreased breath sounds at the bases, and some coarse breath sounds), no ronchi Gastrointestinal: soft, non-tender, non-distended, normal bowel sounds Extremities: no cyanosis, 1+ LE edema Hosp A/P (1) Elevated troponin Code(s): R74.8 - ABNORMAL LEVELS OF OTHER SERUM ENZYMES Status: Acute (2) Anemia, normocytic normochromic Code(s): D64.9 - ANEMIA, UNSPECIFIED Status: Acute (3) Hyponatremia Code(s): E87.1 - HYPO-OSMOLALITY AND HYPONATREMIA Status: Acute (4) Physical deconditioning Code(s): R53.81 - OTHER MALAISE Status: Acute (5) CKD (chronic kidney disease) stage 2, GFR 60-89 ml/min Code(s): N18.2 - CHRONIC KIDNEY DISEASE, STAGE 2 (MILD) Status: Chronic (6) DM2 (diabetes mellitus, type 2) Status: Chronic (7) HTN (hypertension) Code(s): I10 - ESSENTIAL (PRIMARY) HYPERTENSION Status: Chronic - Plan * Elevated Troponins- this is being managed medically. She has opted to not have any invasive studies done * Anemia- the indices are most consistent with anemia of chronic disease, and maybe some degree of iron deficiency as well. Will consider a short coaurse of iron supplementation * HTN- blood pressure is a bit elevated- will observe, may need to adjust medications * DM- blood glucose is a bit elevated- will add a ling acting insulin scheduled * Hyponatremia- stable * Generalized weakness- due to multiple illnesses, and several recent hospitalizations- continue PT/OT * Stable for transfer out of the ICU
[2018-10-16] MEDS ORDERED: hydrALAZINE 20 MG/ML VIAL SLOW IVP PRN (10:00)
--- NOTE | 2018-10-16 10:30 | RAD ---
CHEST 1 VIEW: Date: 10/16/18 INDICATION: History of Type II diabetes, hypoglycemia, and dyspnea. COMPARISON: Prior PA view of the chest dated 10/13/18. FINDINGS: There is cardiomegaly and pulmonary vascular congestion and bilateral pleural effusions. No pneumotho rax is evident. No acute osseous abnormality is evident. IMPRESSION: Findings suspicious for mild CHF. POS: BH
[2018-10-16] MEDS: hydrALAZINE 25 MG TAB PO SCH ×3 (10:56→20:58)
[2018-10-16] MEDS: Carvedilol 25 MG TAB PO SCH ×2 (10:59→16:17)
[2018-10-16] MEDS: Aspirin 81 mg Enteric Coated Tablet PO SCH (11:00)
[2018-10-16] MEDS: Anastrozole 1 MG TAB PO SCH (11:00)
[2018-10-16] MEDS: levETIRAcetam 500 MG TAB PO SCH ×2 (11:01→21:16)
[2018-10-16] MEDS: Lisinopril 20 MG TAB PO SCH (11:02)
[2018-10-16] MEDS: Multivit, Therapeutic 1 TAB PO SCH (11:03)
[2018-10-16] MEDS: Sodium Chloride 1 GM TAB PO SCH ×2 (11:04→21:16)
[2018-10-16] MEDS: Polyethylene Glycol 3350 17 GM Packet PO SCH (11:04)
[2018-10-16] MEDS ORDERED: Furosemide 20 MG/2 ML VIAL SLOW IVP SCH (16:30)
--- NOTE | 2018-10-16 16:59 | PDOC.CTH ---
Cardiology Progress Note - Subjective The pt seen and examined. The pt does not follow commands due to very drowsiness. - Objective Vital Signs Temp Pulse Pulse Pulse Resp BP BP 10/16/18 15:30 97 10/16/18 15:26 97.9 F 97 20 10/16/18 15:00 97 96 143/65 H 10/16/18 12:23 98.3 F 84 18 10/16/18 11:02 149/70 H 10/16/18 11:00 98.5 F 10/16/18 10:56 102 H 149/70 H 10/16/18 10:45 10/16/18 08:00 97.5 F L 10/16/18 05:25 BP BP Pulse Ox 10/16/18 15:30 10/16/18 15:26 143/65 H 97 10/16/18 15:00 135/62 10/16/18 12:23 118/58 L 97 10/16/18 11:02 10/16/18 11:00 10/16/18 10:56 10/16/18 10:45 99 10/16/18 08:00 99 10/16/18 05:25 93 L Weight 169 lb 5.04 oz 10/15/18 10/16/18 10/17/18 06:59 06:59 06:59 Intake Total 1320 1035 0 Output Total 825 630 950 Balance 495 405 -950 - Physical Examination General/Neuro: other: (very drowsiness) Lungs: other: (diminished at bases) Heart: RRR Abdomen: soft Extremities: other: (No edema) - Telemetry Telemetry Rhythm: SR - Labs Result Diagrams: 10/16/18 04:35 10/16/18 04:35 Troponin/CKMB CK-MB (CK-2) 4.0 ng/mL (0-6.6) 10/13/18 09:36 Troponin I 0.192 ng/mL (< 0.028) H 10/13/18 14:46 - Assessment/Plan 1. Elevated troponin - The pt is not good candidate for cardiac cath 2/2 anemia (hgb 7.0), hx of recurrent CVA, and dementia 2. HTN - stable 3. HLD - on Statin 4. DM type 2 - 5. Hypothyroidism - 6. Dementia 7. hx of multiple falls; recent event was on 10/14/2018 8. Carotid atherosclerosis - 9. Anemia - No BM yet to eval. stools for possible GI blood loss 10. Hypoxemia - On 2LNC; MAR reviewed * Dr Moreno's pt; Dr Chandler will f/u during this admission Pt. seen and eval. by me. I agree with the A/P by the OIL LEASE BROKER.[email or web address] Review of Systems - Review of Systems Constitutional: reports: see HPI
[2018-10-16] MEDS: Atorvastatin Calcium 40 MG TAB PO SCH (20:58)
[2018-10-16] MEDS: Insulin Glargine 10 UNITS in Pre-Filled Syringe 1 EACH SC SCH (21:00)
[2018-10-16] MEDS: Melatonin 3 MG TAB PO PRN (21:11)
[2018-10-16] MEDS: Acetaminophen 325 MG TAB PO PRN (21:22)
[2018-10-17] MEDS: Levothyroxine Sodium 125 MCG TAB PO SCH ×3 (05:44→11:23)
[2018-10-17 05:46] LABS: #Eosinphils 0.1 thou/uL (0.0-0.7); #Lymphocytes 0.7 thou/uL (1.20-3.40); #Monocytes 0.8 thou/uL (0.11-0.59); #Neutrophils 5.7 thou/uL (1.40-6.50); %Basophils 0.1 % (0.0-1.0); %Eosinophils 0.9 % (0.0-10.0); %Lymphocytes 9.6 % (21.0-51.0); %Monocytes 10.5 % (0.0-10.0); %Neutrophils 78.9 % (42.0-75.0); Hemoglobin 6.7 g/dL (12.0-16.0); Mean Corpuscular HGB CONC 33.5 g/dL (32.0-36.0); Mean Corpuscular Hemoglobin 30.9 pg (27.0-31.0); Mean Corpuscular Volume 92.3 fL (78.0-98.0); Mean Platelet Volume 7.1 fL (7.4-10.4); Platelet Count 195 thou/uL (130-400); RBC Distribution Width 12.6 % (11.5-14.5); Red Blood Cell (RBC) Count 2.15 mill/uL (4.20-5.40); White Blood Cell (WBC) Count 7.3 thou/uL (4.8-10.8)
[2018-10-17 06:05] LABS: Anion Gap 14 mmol/L (10-20); BUN (Urea Nitrogen) 33 mg/dL (9.8-20.1); Calc. Creatinine Clearance 67 mL/min (70-130); Carbon Dioxide 32 mmol/L (23-31); Chloride 88 mmol/L (98-107); Estimated GFR-MDRD 71; Glucose 190 mg/dL (83-110); Potassium 3.9 mmol/L (3.5-5.1); Sodium 130 mmol/L (136-145)
[2018-10-17 07:39] LABS: Hemoglobin 7.6 g/dL (12.0-16.0); Platelet Count 219 thou/uL (130-400)
--- NOTE | 2018-10-17 08:55 | EKG ---
Test Reason : Blood Pressure : / mmHG Vent. Rate : 088 BPM Atrial Rate : 088 BPM P-R Int : 142 ms QRS Dur : 074 ms QT Int : 396 ms P-R-T Axes : 074 033 101 degrees QTc Int : 479 ms Normal sinus rhythm Prolonged QT Abnormal ECG When compared with ECG of 09-OCT-2007 14:04, ST elevation now present in Anterior leads T wave inversion now evident in Anterolateral leads QT has lengthened Confirmed by DR. Angela DC ([id number]) on 10/17/2018 8:55:39 AM Referred By: SUZANNA Confirmed By:DR. Angela DC
[2018-10-17] MEDS ORDERED: Furosemide 40 MG/4 ML VIAL ONE (09:10)
[2018-10-17] MEDS ORDERED: Furosemide 40 MG/4 ML VIAL SLOW IVP SCH (09:15)
--- NOTE | 2018-10-17 09:20 | PRG ---
DATE OF SERVICE: 10/17/2018 SUBJECTIVE: Ms. Coombs has increased shortness of breath today. She has been using BiPAP at night. She appears to have wheezing. She has opted for medical therapy and not proceed with a more aggressive approach. Her hemoglobin remains low. OBJECTIVE: VITAL SIGNS: Blood pressure 116/77, pulse 84, and temperature 97.5. LUNGS: Wheezing noted bilaterally. Mild crackles present. HEART: Regular rate and rhythm. ABDOMEN: Soft, nontender, and nondistended. EXTREMITIES: No edema. PERTINENT LABORATORY DATA: Hemoglobin 7.6, up from 6.7. Creatinine 0.79 and sodium 130. IMPRESSION: 1. Shortness of breath. 2. Elevated troponin likely secondary to demand ischemia. 3. Abnormal EKG. 4. Anemia. RECOMMENDATIONS: At this point, we will continue with medical therapy. Recommend neb treatments. Add Lasix 40 mg IV x1. Hemoglobin appears improved. Job ID: [id number]
--- NOTE | 2018-10-17 09:38 | PRG ---
DATE OF SERVICE: 10/17/2018 SUBJECTIVE: This morning, she has a more difficulty breathing. OBJECTIVE: GENERAL: On examination, she is clearly in distress. VITAL SIGNS: Blood pressure is elevated at 194/104, pulse 106, temperature is 97.6, respiratory rate 31. CHEST: Decreased breath sounds. Bilateral crackles. CARDIAC: Normal S1 and S2. No gallops. ABDOMEN: No masses. LABORATORY DATA: H and H of 7 and 26. X-ray shows evidence of bilateral lower lobe infiltrates, consistent with fluid overload. IMPRESSION: 1. Respiratory failure. 2. Congestive heart failure. 3. Diastolic dysfunction. 4. Anemia. PLAN: She needs to be placed back on BiPAP again. Continue neb treatments, supportive care, empiric antibiotics. We will follow. Job ID: [id number]
[2018-10-17] MEDS: Insulin Glargine 10 UNITS in Pre-Filled Syringe 1 EACH SC SCH ×2 (09:56→21:23)
--- NOTE | 2018-10-17 10:36 | PDOC.HOSPP ---
- Subjective Subjective: Ms. Coombs was seen today in follow-up of respiratory failure and elevated troponins at approximately 9:30 am. When I came into the room she was dyspneic, and could hear audible wheezing and stridor. She is did not have complaints, but she has some memory problems according to family, therefore this is not reliable. - Objective Vital Signs & Weight: Vital Signs (12 hours) Temp Pulse Resp BP BP Pulse Ox 10/17/18 09:55 96 10/17/18 09:52 89 26 H 95 10/17/18 09:15 107 H 184/99 H 10/17/18 09:04 106 H 194/104 H 10/17/18 08:57 97.6 F 107 H 31 H 194/104 H 98 10/17/18 08:46 92 L 10/17/18 08:39 108 H 28 H 10/17/18 03:30 97.5 F L 84 20 169/77 H 98 10/17/18 03:24 96 22 H 98 10/17/18 00:00 76 16 116/54 L 96 Weight Weight 157 lb 8 oz Most Recent Monitor Data Heart Rate from ECG 89 NIBP 120/57 NIBP BP-Mean 78 Respiration from ECG 23 SpO2 96 I&O: 10/16/18 10/17/18 10/18/18 06:59 06:59 06:59 Intake Total 1035 0 Output Total 630 950 Balance 405 -950 Result Diagrams: 10/17/18 07:32 10/17/18 05:16 Additional Labs: Accuchecks 10/17/18 10/17/18 10/16/18 10:19 05:21 20:17 POC Glucose 335 H 191 H 380 H 10/16/18 10/16/18 16:51 11:16 POC Glucose 324 H 186 H ROS - Review of Systems All systems: All other ROS were reviewed and found negative. - Medication Medications: Active Medications Generic Name Dose Route Start Last Admin Trade Name Freq PRN Reason Stop Dose Admin Acetaminophen 650 mg 10/15/18 07:44 10/16/18 21:22 Tylenol PO 650 mg Q4H PRN Administration Headache/Fever or Pain Anastrozole 1 mg 10/14/18 09:00 10/16/18 11:00 Arimidex PO 1 mg DAILY MATTHEW Administration Aspirin 81 mg 10/14/18 09:00 10/16/18 11:00 Ecotrin PO 81 mg DAILY MATTHEW Administration Atorvastatin Calcium 40 mg 10/13/18 21:00 10/16/18 20:58 Lipitor PO 40 mg HS MATTHEW Administration Carvedilol 25 mg 10/13/18 17:00 10/16/18 16:17 Coreg PO 25 mg BID-WM MATTHEW Administration Cholecalciferol 2,000 units 10/14/18 09:00 10/16/18 11:01 Vitamin D3 PO 2,000 units DAILY MATTHEW Administration Furosemide 40 mg 10/17/18 09:15 10/17/18 09:15 Lasix SLOW IVP 10/17/18 11:15 40 mg NOW MATTHEW Administration Hydralazine HCl 100 mg 10/13/18 15:00 10/16/18 20:58 Apresoline PO 100 mg TID MATTHEW Administration Hydralazine HCl 10 mg 10/16/18 10:00 10/17/18 09:04 Apresoline SLOW IVP 10 mg Q4H PRN Administration SBP > 180 and HR < 70 Insulin Glargine 10 units/ 0.1 mls @ 0 mls/hr 10/16/18 21:00 10/16/18 21:00 Miscellaneous Medication SC 0.1 mls HS MATTHEW Administration Insulin Glargine 10 units/ 0.1 mls @ 0 mls/hr 10/17/18 09:00 10/17/18 09:56 Miscellaneous Medication SC 0.1 mls QAM MATTHEW Administration Insulin Human Lispro 0 units 10/13/18 14:38 10/16/18 16:53 Humalog SC 5 unit .MILD SLIDING SCALE PRN Administration Mild Correctional Scale Insulin Human Lispro 0 units 10/13/18 21:09 10/16/18 21:07 Humalog SC 5 unit .BEDTIME SLIDING SC PRN Administration Bedtime Correctional Scale Isosorbide Mononitrate 30 mg 10/14/18 09:00 10/16/18 10:58 Imdur Er PO 30 mg DAILY MATTHEW Administration Levetiracetam 1,000 mg 10/13/18 21:00 10/16/18 21:16 Keppra PO 1,000 mg BID MATTHEW Administration Levothyroxine Sodium 125 mcg 10/14/18 06:00 10/17/18 05:44 Synthroid PO 125 mcg 0600 MATTHEW Administration Lisinopril 40 mg 10/14/18 09:00 10/16/18 11:02 Zestril PO 40 mg DAILY MATTHEW Administration Melatonin 6 mg 10/13/18 14:36 10/16/18 21:11 Melatonin PO 6 mg DAILY PRN Administration Insomnia Multivitamins 1 tab 10/14/18 09:00 10/16/18 11:03 Theragran PO 1 tab DAILY MATTHEW Administration Polyethylene Glycol 17 gm 10/14/18 09:00 10/16/18 11:04 Miralax PO 17 gm DAILY MATTHEW Administration Sodium Chloride 1 gm 10/13/18 21:00 10/16/18 21:16 Sodium Chloride PO 1 gm BID MATTHEW Administration - Exam Eye: PERRL, anicteric sclera Heart: RRR, no murmur, no gallops Respiratory: rales (+ rales bilaterally in both lung menendez), wheezes (+ faint wheezing bilaterally, and stridor) Gastrointestinal: soft, non-tender, normal bowel sounds, no palpable masses, distended (+ mildly distended) Extremities: 1+ LE edema (+ edema in both upper and lower extremities) Skin: normal turgor, no lesions, no rashes Hosp A/P (1) Acute hypoxemic respiratory failure Code(s): J96.01 - ACUTE RESPIRATORY FAILURE WITH HYPOXIA Status: Acute (2) Acute on chronic diastolic heart failure Code(s): I50.33 - ACUTE ON CHRONIC DIASTOLIC (CONGESTIVE) HEART FAILURE Status : Acute (3) Elevated troponin Code(s): R74.8 - ABNORMAL LEVELS OF OTHER SERUM ENZYMES Status: Acute (4) Anemia, normocytic normochromic Code(s): D64.9 - ANEMIA, UNSPECIFIED Status: Acute (5) Hyponatremia Code(s): E87.1 - HYPO-OSMOLALITY AND HYPONATREMIA Status: Acute (6) Physical deconditioning Code(s): R53.81 - OTHER MALAISE Status: Acute (7) CKD (chronic kidney disease) stage 2, GFR 60-89 ml/min Code(s): N18.2 - CHRONIC KIDNEY DISEASE, STAGE 2 (MILD) Status: Chronic (8) DM2 (diabetes mellitus, type 2) Status: Chronic (9) HTN (hypertension) Code(s): I10 - ESSENTIAL (PRIMARY) HYPERTENSION Status: Chronic - Plan * Acute respiratory failure with hypoxemia- the patient became dyspneic this morning. She appears clinically to be volume overloaded. Lasix has been ordered , and she was given a racemic epi treatment. Due to continued dyspnea, she is being moved to the [facility] and placed on BiPAP. * Rocephin has been added to her regimen * Anemia- due to chronic disease, as well as mild iron deficiency- will need to make sure blood draws are not close to the IV site, it may be diluting the sample- repeat H&H was a bit higher- will hold off on transfuse, and treat with short course of iron therapy * CAD- with elevated troponins- she recently had an CO- and also a CVA- she has severe deconditioning- the plan is to avoid invasive treatment, and treat medically * DM- blood glucose is a bit elevated- will monitor, will continue SSI,and low dose scheduled insulin * CKD- stable * HTN- blood pressure is elevated- but likely from the respiratory failure and volume overload- will re-check later * Hyponatremia- stable
[2018-10-17] MEDS: HumaLOG 300 UNITS/3 ML VIAL SC PRN ×2 (10:46→16:45)
[2018-10-17] MEDS: cefTRIAXone\\ROCEPHIN 1 GM in Sodium Chloride 0.9% 100 ML IVPB SCH (10:46)
[2018-10-17] MEDS: methylPREDNISolone Sod Succ/PF 125 MG/2 ML VIAL IVP SCH ×2 (10:47→21:22)
[2018-10-17] MEDS: Carvedilol 25 MG TAB PO SCH ×2 (11:23→16:45)
[2018-10-17] MEDS: Anastrozole 1 MG TAB PO SCH (11:23)
[2018-10-17] MEDS: hydrALAZINE 25 MG TAB PO SCH ×3 (11:24→21:23)
[2018-10-17] MEDS: Aspirin 81 mg Enteric Coated Tablet PO SCH (11:24)
[2018-10-17] MEDS: levETIRAcetam 500 MG TAB PO SCH ×2 (11:25→21:23)
[2018-10-17] MEDS: Multivit, Therapeutic 1 TAB PO SCH (11:25)
[2018-10-17] MEDS: Lisinopril 20 MG TAB PO SCH (11:25)
[2018-10-17] MEDS: Polyethylene Glycol 3350 17 GM Packet PO SCH (11:26)
[2018-10-17] MEDS: Sodium Chloride 1 GM TAB PO SCH ×2 (11:27→21:24)
[2018-10-17] MEDS: Acetaminophen 325 MG TAB PO PRN (16:45)
[2018-10-17] MEDS: Atorvastatin Calcium 40 MG TAB PO SCH (21:24)
[2018-10-18] MEDS: methylPREDNISolone Sod Succ/PF 125 MG/2 ML VIAL IVP SCH ×2 (09:04→21:25)
[2018-10-18] MEDS: Anastrozole 1 MG TAB PO SCH (09:04)
[2018-10-18] MEDS: Insulin Glargine 10 UNITS in Pre-Filled Syringe 1 EACH SC SCH ×2 (09:04→21:25)
[2018-10-18] MEDS: Lisinopril 20 MG TAB PO SCH (09:04)
[2018-10-18] MEDS: Polyethylene Glycol 3350 17 GM Packet PO SCH (09:04)
[2018-10-18] MEDS: Sodium Chloride 1 GM TAB PO SCH ×2 (09:04→21:25)
[2018-10-18] MEDS: hydrALAZINE 25 MG TAB PO SCH ×3 (09:05→21:25)
[2018-10-18] MEDS: Carvedilol 25 MG TAB PO SCH ×2 (09:05→17:51)
[2018-10-18] MEDS: levETIRAcetam 500 MG TAB PO SCH ×2 (09:05→21:25)
[2018-10-18] MEDS: Ferrous Sulfate 325 MG TAB PO SCH (09:05)
[2018-10-18] MEDS: Aspirin 81 mg Enteric Coated Tablet PO SCH (09:06)
[2018-10-18] MEDS: Multivit, Therapeutic 1 TAB PO SCH (09:06)
--- NOTE | 2018-10-18 09:08 | RAD ---
XR Chest 1 View Portable History: Congestive heart failure Comparison: Radiograph 2 days prior Findings: Heart size continues to be enlarged. Similar bilateral pleural effusions. Mild pulmonary ve nous congestion. No pneumothorax. No acute osseous abnormality. Impression: Similar examination of the chest.
[2018-10-18 09:58] LABS: #Lymphocytes 0.9 thou/uL (1.20-3.40); #Monocytes 0.4 thou/uL (0.11-0.59); #Neutrophils 8.7 thou/uL (1.40-6.50); %Basophils 0.1 % (0.0-1.0); %Eosinophils 0.2 % (0.0-10.0); %Lymphocytes 8.5 % (21.0-51.0); %Neutrophils 87.2 % (42.0-75.0); Hemoglobin 8.1 g/dL (12.0-16.0); Mean Corpuscular HGB CONC 33.3 g/dL (32.0-36.0); Mean Corpuscular Hemoglobin 29.8 pg (27.0-31.0); Mean Corpuscular Volume 89.5 fL (78.0-98.0); Mean Platelet Volume 7.3 fL (7.4-10.4); Platelet Count 299 thou/uL (130-400); RBC Distribution Width 12.6 % (11.5-14.5); Red Blood Cell (RBC) Count 2.72 mill/uL (4.20-5.40)
[2018-10-18 10:05] LABS: BUN (Urea Nitrogen) 34 mg/dL (9.8-20.1); Calc. Creatinine Clearance 68 mL/min (70-130); Calcium 9.8 mg/dL (7.8-10.44); Carbon Dioxide 30 mmol/L (23-31); Chloride 87 mmol/L (98-107); Estimated GFR-MDRD 72; Glucose 214 mg/dL (83-110); Potassium 3.9 mmol/L (3.5-5.1); Sodium 134 mmol/L (136-145)
--- NOTE | 2018-10-18 10:34 | PRG ---
DATE OF SERVICE: 10/18/2018 SUBJECTIVE: This morning, she is much more awake, alert, responsive. Less short of breath. She is hungry. Off the BiPAP. OBJECTIVE: VITAL SIGNS: Saturations are 100%, temperature 98, respirations 20, and blood pressure 155/77. CHEST: Decreased breath sounds. No wheezing. CARDIAC: Normal S1 and S2. No gallops. ABDOMEN: No masses. ASSESSMENT: 1. Congestive heart failure. 2. Possibly pneumonia. 3. Respiratory failure. 4. Do not resuscitate. 5. Anemia. PLAN: Continue PT, supportive care. Switch over to oral medication tomorrow. Job ID: [id number]
[2018-10-18 11:29] LABS: Anion Gap 21 mmol/L (10-20)
[2018-10-18] MEDS: HumaLOG 300 UNITS/3 ML VIAL SC PRN ×3 (12:46→21:24)
[2018-10-18] MEDS: cefTRIAXone\\ROCEPHIN 1 GM in Sodium Chloride 0.9% 100 ML IVPB SCH (12:46)
--- NOTE | 2018-10-18 14:09 | PRG ---
DATE OF SERVICE: 10/18/2018 SUBJECTIVE: Ms. Coombs is doing better. Yesterday, she had difficulty with shortness of breath. She was transferred to the intermediate care unit, where she was placed on BiPAP. She was also given Lasix for diuresis. She continues to be confused. No current complaints. OBJECTIVE: VITAL SIGNS: Blood pressure 145/68, pulse 105, temperature afebrile. LUNGS: Clear to auscultation. No wheezing. Mild crackles noted bilaterally. HEART: Regular rate and rhythm. ABDOMEN: Soft, nontender, and nondistended. EXTREMITIES: No edema. PERTINENT LABORATORY DATA: Hemoglobin 8.1. Creatinine 0.77. IMPRESSION: 1. Shortness of breath. 2. Type 2 myocardial infarction. 3. Dementia. RECOMMENDATIONS: 1. At this point, continue aggressive medical therapy. 2. Avoid beta-iraj therapy due to wheezing. 3. Continue aspirin and atorvastatin. She is currently on carvedilol and may consider decreasing dose if she continues to have issues with wheezing. May switch to calcium-channel blockade. 4. Otherwise, options appear limited based on her comorbidities. Job ID: [id number]
--- NOTE | 2018-10-18 17:50 | PDOC.HOSPP ---
- Subjective Subjective: Says she is doing better today. Says she is breathing well now. - Objective Vital Signs & Weight: Vital Signs (12 hours) Temp Pulse Pulse Pulse Resp BP BP 10/18/18 15:28 98.6 F 10/18/18 15:15 104 H 102 H 155/81 H 10/18/18 14:08 105 H 10/18/18 13:36 10/18/18 13:35 105 H 22 H 10/18/18 10:39 103 H 99 118/59 L 10/18/18 10:34 99.5 F 10/18/18 09:05 100 169/98 H 10/18/18 09:04 169/98 H 10/18/18 07:39 100 20 10/18/18 07:38 100 16 10/18/18 07:14 98.2 F BP Pulse Ox Pulse Ox Pulse Ox 10/18/18 15:28 10/18/18 15:15 144/79 H 94 L 93 L 10/18/18 14:08 10/18/18 13:36 99 10/18/18 13:35 99 10/18/18 10:39 122/63 91 L 95 10/18/18 10:34 10/18/18 09:05 10/18/18 09:04 10/18/18 07:39 96 10/18/18 07:38 96 10/18/18 07:14 Weight Weight 168 lb Most Recent Monitor Data Heart Rate from ECG 105 NIBP 143/73 NIBP BP-Mean 96 Respiration from ECG 21 SpO2 93 I&O: 10/17/18 10/18/18 10/19/18 06:59 06:59 06:59 Intake Total 0 420 Output Total 950 1450 Balance -950 -1030 Result Diagrams: 10/18/18 09:39 10/18/18 09:39 Additional Labs: Accuchecks 10/18/18 10/18/18 10/18/18 16:14 10:16 05:32 POC Glucose 328 H 330 H 229 H 10/17/18 19:49 POC Glucose 191 H ROS - Review of Systems All systems: All other ROS were reviewed and found negative. - Medication Medications: Active Medications Generic Name Dose Route Start Last Admin Trade Name Freq PRN Reason Stop Dose Admin Acetaminophen 650 mg 10/15/18 07:44 10/17/18 16:45 Tylenol PO 650 mg Q4H PRN Administration Headache/Fever or Pain Albuterol/Ipratropium 3 ml 10/17/18 13:00 10/18/18 13:35 Duoneb NEB 3 ml [id number] MATTHEW Administration Anastrozole 1 mg 10/14/18 09:00 10/18/18 09:04 Arimidex PO 1 mg DAILY MATTHEW Administration Aspirin 81 mg 10/14/18 09:00 10/18/18 09:06 Ecotrin PO 81 mg DAILY MATTHEW Administration Atorvastatin Calcium 40 mg 10/13/18 21:00 10/17/18 21:24 Lipitor PO 40 mg HS MATTHEW Administration Carvedilol 25 mg 10/13/18 17:00 10/18/18 09:05 Coreg PO 25 mg BID-WM MATTHEW Administration Cholecalciferol 2,000 units 10/14/18 09:00 10/18/18 09:06 Vitamin D3 PO 2,000 units DAILY MATTHEW Administration Ferrous Sulfate 325 mg 10/18/18 08:00 10/18/18 09:05 Feosol PO 325 mg QAM-WM MATTHEW Administration Hydralazine HCl 100 mg 10/13/18 15:00 10/18/18 14:08 Apresoline PO 100 mg TID MATTHEW Administration Hydralazine HCl 10 mg 10/16/18 10:00 10/17/18 09:04 Apresoline SLOW IVP 10 mg Q4H PRN Administration SBP > 180 and HR < 70 Insulin Glargine 10 units/ 0.1 mls @ 0 mls/hr 10/16/18 21:00 10/17/18 21:23 Miscellaneous Medication SC 0.1 mls HS MATTHEW Administration Insulin Glargine 10 units/ 0.1 mls @ 0 mls/hr 10/17/18 09:00 10/18/18 09:04 Miscellaneous Medication SC 0.1 mls QAM MATTHEW Administration Ceftriaxone Sodium 1 gm/ 100 mls @ 200 mls/hr 10/17/18 11:00 10/18/18 12:46 Sodium Chloride IVPB 100 mls 1100 MATTHEW Administration Insulin Human Lispro 0 units 10/13/18 14:38 10/18/18 12:46 Humalog SC 5 unit .MILD SLIDING SCALE PRN Administration Mild Correctional Scale Insulin Human Lispro 0 units 10/13/18 21:09 10/16/18 21:07 Humalog SC 5 unit .BEDTIME SLIDING SC PRN Administration Bedtime Correctional Scale Isosorbide Mononitrate 30 mg 10/14/18 09:00 10/18/18 09:05 Imdur Er PO 30 mg DAILY MATTHEW Administration Levetiracetam 1,000 mg 10/13/18 21:00 10/18/18 09:05 Keppra PO 1,000 mg BID MATTHEW Administration Levothyroxine Sodium 125 mcg 10/14/18 06:00 10/17/18 11:23 Synthroid PO Not Given 0600 AMTTHEW Lisinopril 40 mg 10/14/18 09:00 10/18/18 09:04 Zestril PO 40 mg DAILY MATTHEW Administration Melatonin 6 mg 10/13/18 14:36 10/16/18 21:11 Melatonin PO 6 mg DAILY PRN Administration Insomnia Methylprednisolone Sodium Succinate 40 mg 10/17/18 10:00 10/18/18 09:04 Solu-Medrol IVP 40 mg 1000,2200 MATTHEW Administration Multivitamins 1 tab 10/14/18 09:00 10/18/18 09:06 Theragran PO 1 tab DAILY MATTHEW Administration Pantoprazole Sodium 40 mg 10/17/18 09:00 10/18/18 09:05 Protonix PO 40 mg DAILY MATTHEW Administration Polyethylene Glycol 17 gm 10/14/18 09:00 10/18/18 09:04 Miralax PO 17 gm DAILY MATTHEW Administration Sodium Chloride 1 gm 10/13/18 21:00 10/18/18 09:04 Sodium Chloride PO 1 gm BID MATTHEW Administration - Exam NAD Heart: RRR, no murmur, no gallops, no rubs, normal peripheral pulses Respiratory: rales (Bibasilar rales. Mild scattered wheezes.) Gastrointestinal: soft, non-tender, non-distended, normal bowel sounds, no palpable masses, no hepatomegaly, no splenomegaly, no bruit Extremities: no edema Skin: normal turgor Neurological: CN's grossly intact, no focal deficits Musculoskeletal: normal tone Psychiatric: normal affect (Has very good memory of most events, but confused about some issues.) Hosp A/P (1) Acute hypoxemic respiratory failure Code(s): J96.01 - ACUTE RESPIRATORY FAILURE WITH HYPOXIA Status: Acute (2) Acute on chronic diastolic heart failure Code(s): I50.33 - ACUTE ON CHRONIC DIASTOLIC (CONGESTIVE) HEART FAILURE Status : Acute (3) Anemia, normocytic normochromic Code(s): D64.9 - ANEMIA, UNSPECIFIED Status: Acute (4) Contusion of rib on right side Code(s): S20.211A - CONTUSION OF RIGHT FRONT WALL OF THORAX, INITIAL ENCOUNTER Status: Acute (5) Diabetes mellitus Code(s): E11.9 - TYPE 2 DIABETES MELLITUS WITHOUT COMPLICATIONS Status: Acute (6) Elevated troponin Code(s): R74.8 - ABNORMAL LEVELS OF OTHER SERUM ENZYMES Status: Acute (7) Gait instability Code(s): R26.81 - UNSTEADINESS ON FEET Status: Acute (8) Hyponatremia Code(s): E87.1 - HYPO-OSMOLALITY AND HYPONATREMIA Status: Acute (9) CKD (chronic kidney disease) stage 2, GFR 60-89 ml/min Code(s): N18.2 - CHRONIC KIDNEY DISEASE, STAGE 2 (MILD) Status: Chronic - Plan She had initial fall with trauma to the right posterior rib cage. Had some ekg changes and elevated troponin. Defined as Type II demand ischemia by cardio. Cards following. Subsequently had worsening respiratory distress. Moved to the [facility]. Was to move out and had a setback. Appears to be improved today. Continue oxygen, nebs. Pulm following.
[2018-10-18] MEDS: Atorvastatin Calcium 40 MG TAB PO SCH (21:25)
[2018-10-19] MEDS: Melatonin 3 MG TAB PO PRN ×2 (02:11→22:52)
[2018-10-19] MEDS: Levothyroxine Sodium 125 MCG TAB PO SCH (05:31)
[2018-10-19] MEDS: HumaLOG 300 UNITS/3 ML VIAL SC PRN ×4 (05:33→21:20)
--- NOTE | 2018-10-19 09:05 | PRG ---
DATE OF SERVICE: 10/19/2018 SUBJECTIVE: This morning, she is telling me she is little bit more short of breath. No coughing. No wheezing. No chest pain. OBJECTIVE: VITAL SIGNS: Saturations are 99% on 2 L, respirations 18, temperature 98, and blood pressure 171/85. CHEST: Decreased breath sounds. No wheezing. CARDIAC: Normal S1 and S2. No gallops. ABDOMEN: No masses. LABORATORY DATA: Glucose is 267. White count 10,000. ASSESSMENT: 1. Respiratory failure. 2. Congestive heart failure. 3. Chronic obstructive pulmonary disease. 4. Diastolic dysfunction. 5. Possibly pneumonia. PLAN: Switch her to oral medication. PT, supportive care. We will follow. Job ID: [id number]
[2018-10-19] MEDS: hydrALAZINE 25 MG TAB PO SCH ×3 (09:14→20:18)
[2018-10-19] MEDS: Carvedilol 6.25 MG TAB PO SCH ×2 (09:14→20:19)
[2018-10-19] MEDS: Ferrous Sulfate 325 MG TAB PO SCH (09:14)
[2018-10-19] MEDS: Multivit, Therapeutic 1 TAB PO SCH (09:14)
[2018-10-19] MEDS: Aspirin 81 mg Enteric Coated Tablet PO SCH (09:15)
[2018-10-19] MEDS: levETIRAcetam 500 MG TAB PO SCH ×2 (09:15→20:19)
[2018-10-19] MEDS: Lisinopril 20 MG TAB PO SCH (09:16)
[2018-10-19] MEDS: Insulin Glargine 10 UNITS in Pre-Filled Syringe 1 EACH SC SCH ×2 (09:16→21:21)
[2018-10-19] MEDS: Polyethylene Glycol 3350 17 GM Packet PO SCH (09:17)
[2018-10-19] MEDS: Anastrozole 1 MG TAB PO SCH (09:17)
[2018-10-19] MEDS: Cefdinir 300 MG CAP PO SCH ×2 (09:36→20:18)
[2018-10-19] MEDS: Sodium Chloride 1 GM TAB PO SCH ×2 (09:36→20:19)
[2018-10-19] MEDS: predniSONE 20 MG TAB PO SCH (10:20)
[2018-10-19] MEDS: Carvedilol 25 MG TAB PO SCH (10:44)
--- NOTE | 2018-10-19 13:14 | EKG ---
Test Reason : CHEST PAIN Blood Pressure : / mmHG Vent. Rate : 096 BPM Atrial Rate : 096 BPM P-R Int : 152 ms QRS Dur : 078 ms QT Int : 340 ms P-R-T Axes : 060 000 020 degrees QTc Int : 429 ms Normal sinus rhythm Normal ECG When compared with ECG of 13-OCT-2018 14:18, (Unconfirmed) ST no longer elevated in Anterolateral leads T wave inversion no longer evident in Anterolateral leads Confirmed by FARHAN HESTER (2) on 10/19/2018 1:13:32 PM Referred By: SOUND Confirmed By:FARHAN HESTER
--- NOTE | 2018-10-19 14:22 | PDOC.HOSPP ---
- Subjective Subjective: Says she had a little more SOB overnight last night. OK now. - Objective Vital Signs & Weight: Vital Signs (12 hours) Temp Pulse Resp BP Pulse Ox 10/19/18 13:04 93 22 H 100 10/19/18 11:03 98.4 F 10/19/18 09:14 111 H 162/105 H 10/19/18 08:00 94 L 10/19/18 07:24 85 18 99 10/19/18 07:17 98.5 F 10/19/18 04:00 99.4 F Weight Weight 165 lb 6.4 oz Most Recent Monitor Data Heart Rate from ECG 97 NIBP 146/70 NIBP BP-Mean 95 Respiration from ECG 23 SpO2 92 I&O: 10/18/18 10/19/18 10/20/18 06:59 06:59 06:59 Intake Total 420 1300 Output Total 1450 950 Balance -1030 350 Result Diagrams: 10/18/18 09:39 10/18/18 09:39 Additional Labs: Accuchecks 10/19/18 10/19/18 10/18/18 10:11 05:35 20:12 POC Glucose 384 H 267 H 354 H 10/18/18 16:14 POC Glucose 328 H ROS - Review of Systems All systems: All other ROS were reviewed and found negative. - Medication Medications: Active Medications Generic Name Dose Route Start Last Admin Trade Name Freq PRN Reason Stop Dose Admin Acetaminophen 650 mg 10/15/18 07:44 10/17/18 16:45 Tylenol PO 650 mg Q4H PRN Administration Headache/Fever or Pain Albuterol/Ipratropium 3 ml 10/17/18 13:00 10/19/18 13:04 Duoneb NEB 3 ml [id number] MATTHEW Administration Anastrozole 1 mg 10/14/18 09:00 10/19/18 09:17 Arimidex PO 1 mg DAILY MATTHEW Administration Aspirin 81 mg 10/14/18 09:00 10/19/18 09:15 Ecotrin PO 81 mg DAILY MATTHEW Administration Atorvastatin Calcium 40 mg 10/13/18 21:00 10/18/18 21:25 Lipitor PO 40 mg HS MATTHEW Administration Carvedilol 12.5 mg 10/19/18 09:00 10/19/18 09:14 Coreg PO 12.5 mg BID MATTHEW Administration Cefdinir 300 mg 10/19/18 09:00 10/19/18 09:36 Omnicef PO 10/24/18 09:01 300 mg BID MATTHEW Administration Cholecalciferol 2,000 units 10/14/18 09:00 10/19/18 09:16 Vitamin D3 PO 2,000 units DAILY MATTHEW Administration Ferrous Sulfate 325 mg 10/18/18 08:00 10/19/18 09:14 Feosol PO 325 mg QAM-WM MATTHEW Administration Hydralazine HCl 100 mg 10/13/18 15:00 10/19/18 09:14 Apresoline PO 100 mg TID MATTHEW Administration Hydralazine HCl 10 mg 10/16/18 10:00 10/17/18 09:04 Apresoline SLOW IVP 10 mg Q4H PRN Administration SBP > 180 and HR < 70 Insulin Glargine 10 units/ 0.1 mls @ 0 mls/hr 10/16/18 21:00 10/18/18 21:25 Miscellaneous Medication SC 0.1 mls HS MATTHEW Administration Insulin Glargine 10 units/ 0.1 mls @ 0 mls/hr 10/17/18 09:00 10/19/18 09:16 Miscellaneous Medication SC 0.1 mls QAM MATTHEW Administration Insulin Human Lispro 0 units 10/13/18 14:38 10/19/18 10:29 Humalog SC 6 unit .MILD SLIDING SCALE PRN Administration Mild Correctional Scale Insulin Human Lispro 0 units 10/13/18 21:09 10/18/18 21:24 Humalog SC 5 unit .BEDTIME SLIDING SC PRN Administration Bedtime Correctional Scale Isosorbide Mononitrate 30 mg 10/14/18 09:00 10/19/18 09:15 Imdur Er PO 30 mg DAILY MATTHEW Administration Levetiracetam 1,000 mg 10/13/18 21:00 10/19/18 09:15 Keppra PO 1,000 mg BID MATTHEW Administration Levothyroxine Sodium 125 mcg 10/14/18 06:00 10/19/18 05:31 Synthroid PO 125 mcg 0600 MATTHEW Administration Lisinopril 40 mg 10/14/18 09:00 10/19/18 09:16 Zestril PO 40 mg DAILY MATHTEW Administration Melatonin 6 mg 10/13/18 14:36 10/19/18 02:11 Melatonin PO 6 mg DAILY PRN Administration Insomnia Multivitamins 1 tab 10/14/18 09:00 10/19/18 09:14 Theragran PO 1 tab DAILY MATTHEW Administration Pantoprazole Sodium 40 mg 10/17/18 09:00 10/19/18 09:14 Protonix PO 40 mg DAILY MATTHEW Administration Polyethylene Glycol 17 gm 10/14/18 09:00 10/19/18 09:17 Miralax PO 17 gm DAILY MATTHEW Administration Prednisone 20 mg 10/19/18 09:00 10/19/18 10:20 Prednisone PO 10/25/18 09:01 20 mg QAM-WM MATTHEW Administration Sodium Chloride 1 gm 10/13/18 21:00 10/19/18 09:36 Sodium Chloride PO 1 gm BID MATTHEW Administration - Exam NAD, awake alert Heart: RRR, no murmur, no gallops, no rubs, normal peripheral pulses Respiratory: rales, wheezes Gastrointestinal: soft, non-tender, non-distended, normal bowel sounds, no palpable masses, no hepatomegaly, no splenomegaly, no bruit Extremities: no cyanosis, no clubbing, no edema Skin: normal turgor, no lesions, no rashes Neurological: CN's grossly intact, normal sensation to touch, no weakness, no focal deficits, no new deficit Musculoskeletal: normal tone Psychiatric: normal affect, normal behavior Hosp A/P (1) Acute hypoxemic respiratory failure Code(s): J96.01 - ACUTE RESPIRATORY FAILURE WITH HYPOXIA Status: Acute (2) Acute on chronic diastolic heart failure Code(s): I50.33 - ACUTE ON CHRONIC DIASTOLIC (CONGESTIVE) HEART FAILURE Status : Acute (3) Anemia, normocytic normochromic Code(s): D64.9 - ANEMIA, UNSPECIFIED Status: Acute (4) Contusion of rib on right side Code(s): S20.211A - CONTUSION OF RIGHT FRONT WALL OF THORAX, INITIAL ENCOUNTER Status: Acute (5) Diabetes mellitus Code(s): E11.9 - TYPE 2 DIABETES MELLITUS WITHOUT COMPLICATIONS Status: Acute (6) Elevated troponin Code(s): R74.8 - ABNORMAL LEVELS OF OTHER SERUM ENZYMES Status: Acute (7) Gait instability Code(s): R26.81 - UNSTEADINESS ON FEET Status: Acute (8) Hyponatremia Code(s): E87.1 - HYPO-OSMOLALITY AND HYPONATREMIA Status: Acute (9) CKD (chronic kidney disease) stage 2, GFR 60-89 ml/min Code(s): N18.2 - CHRONIC KIDNEY DISEASE, STAGE 2 (MILD) Status: Chronic - Plan Had initially held her Metformin in anticipation of cath. No cath done. Now glucose high due to steroids. Resume home metformin and Lantus. Pulm, Cards following. Steroids, abx, nebs, diuresing as needed.
[2018-10-19] MEDS: metFORMIN 500 MG TAB PO SCH (16:00)
[2018-10-19] MEDS: Mometasone/Formoterol 120 PUFF INHALER INH SCH (19:38)
[2018-10-19] MEDS: Atorvastatin Calcium 40 MG TAB PO SCH (20:19)
--- NOTE | 2018-10-20 07:04 | CON ---
DATE OF CONSULTATION: 10/19/2018 SUBJECTIVE: Ms. Coombs appears more lucid, but still confused as per her baseline. No current complaints. Her breathing also appears better. OBJECTIVE: GENERAL: Patient is a pleasant female who is in no acute distress. The patient appears their stated age. VITAL SIGNS: Blood pressure 112/59, pulse 76, temperature afebrile. NEUROLOGIC: The patient is alert and oriented x3 with no focal neurologic deficits. HEENT: Sclerae without icterus. Mouth has moist mucous membranes with normal pallor. NECK: No JVD. Carotid upstroke brisk. No bruits bilaterally. LUNGS: Clear to auscultation with unlabored respirations. BACK: No scoliosis or kyphosis. CARDIAC: Regular rate and rhythm with normal S1 and S2. No S3 or S4 noted. No significant rubs, murmurs, thrills, or gallops noted throughout the precordium. PMI is not displaced. There is no parasternal heave. ABDOMEN: Soft, nontender, nondistended. No peritoneal signs present. No hepatosplenomegaly. No abnormal striae. EXTREMITIES: 2+ femoral and 2+ dorsalis pedis pulses. No cyanosis, clubbing, or edema. SKIN: No gross abnormalities. PERTINENT LABORATORY DATA: Hemoglobin 8.1, platelet count 299. Creatinine 0.77. IMPRESSION: 1. Type 2 myocardial infarction. 2. Shortness of breath. 3. Chronic obstructive pulmonary disease. 4. Diastolic dysfunction. 5. Dementia. RECOMMENDATIONS: 1. Continue medical therapy. 2. Decrease Coreg to 12.5 b.i.d. given wheezing. 3. Etiology to anemia ? I will defer to primary team. Otherwise, I have no further recommendations. Job ID: [id number]
[2018-10-20] MEDS: Levothyroxine Sodium 125 MCG TAB PO SCH (07:13)
[2018-10-20] MEDS: Mometasone/Formoterol 120 PUFF INHALER INH SCH ×2 (07:53→19:53)
--- NOTE | 2018-10-20 09:24 | PRG ---
DATE OF SERVICE: 10/20/2018 SUBJECTIVE: Payal Coombs, this morning, is awake, alert, responsive, better, but still short of breath. OBJECTIVE: VITAL SIGNS: Temperature 97, pulse 94, saturations are 95% on 2 L, and blood pressure 130/68. CHEST: Minimal crackles. No wheezing. CARDIAC: Normal S1 and S2. No gallops. ABDOMEN: No mass. IMPRESSION: 1. Diastolic dysfunction. 2. Chronic obstructive pulmonary disease. 3. Respiratory failure. PLAN: She has improved. Continue empiric antibiotics, empiric steroids, PT, supportive care. We will follow. Job ID: [id number]
[2018-10-20] MEDS: hydrALAZINE 25 MG TAB PO SCH ×3 (09:42→20:36)
[2018-10-20] MEDS: Aspirin 81 mg Enteric Coated Tablet PO SCH (09:43)
[2018-10-20] MEDS: Cefdinir 300 MG CAP PO SCH ×2 (09:43→20:36)
[2018-10-20] MEDS: Sodium Chloride 1 GM TAB PO SCH ×2 (09:43→20:37)
[2018-10-20] MEDS: Insulin Glargine 10 UNITS in Pre-Filled Syringe 1 EACH SC SCH (09:43)
[2018-10-20] MEDS: Ferrous Sulfate 325 MG TAB PO SCH (09:44)
[2018-10-20] MEDS: levETIRAcetam 500 MG TAB PO SCH ×2 (09:44→20:35)
[2018-10-20] MEDS: metFORMIN 500 MG TAB PO SCH ×2 (09:44→15:21)
[2018-10-20] MEDS: Lisinopril 20 MG TAB PO SCH (09:44)
[2018-10-20] MEDS: Carvedilol 6.25 MG TAB PO SCH ×2 (09:44→20:36)
[2018-10-20] MEDS: Polyethylene Glycol 3350 17 GM Packet PO SCH (09:45)
[2018-10-20] MEDS: predniSONE 20 MG TAB PO SCH (09:45)
[2018-10-20] MEDS: Multivit, Therapeutic 1 TAB PO SCH (09:45)
[2018-10-20] MEDS: Anastrozole 1 MG TAB PO SCH (09:45)
[2018-10-20] MEDS: HumaLOG 300 UNITS/3 ML VIAL SC PRN ×3 (13:00→20:38)
[2018-10-20] MEDS ORDERED: Insulin Glargine 20 UNITS in Pre-Filled Syringe 1 EACH SC SCH (14:21)
--- NOTE | 2018-10-20 14:29 | PDOC.HOSPP ---
- Subjective Subjective: 83 y/o female with multiple co morbidities including recent acute CVA, COPD and others admitted after a fall. Developed worsening hypoxia and was transfered to ICU. Feeling better but still having some difficulty breathing. No fever. - Objective Vital Signs & Weight: Vital Signs (12 hours) Temp Pulse Resp BP Pulse Ox 10/20/18 13:24 85 23 H 10/20/18 11:52 97.9 F 10/20/18 09:44 140/69 10/20/18 09:42 94 147/73 H 10/20/18 08:00 97.9 F 96 10/20/18 07:54 94 27 H 10/20/18 03:38 98.1 F Weight Weight 168 lb Most Recent Monitor Data Heart Rate from ECG 88 NIBP 143/73 NIBP BP-Mean 96 Respiration from ECG 28 SpO2 93 I&O: 10/19/18 10/20/18 10/21/18 06:59 06:59 06:59 Intake Total 1300 1370 Output Total 950 1125 Balance 350 245 Result Diagrams: 10/18/18 09:39 10/18/18 09:39 Additional Labs: Accuchecks 10/20/18 10/20/18 10/19/18 11:09 05:53 21:07 POC Glucose 382 H 176 H 365 H 10/19/18 16:16 POC Glucose 342 H ROS - Review of Systems All systems: All other ROS were reviewed and found negative. - Medication Medications: Active Medications Generic Name Dose Route Start Last Admin Trade Name Freq PRN Reason Stop Dose Admin Acetaminophen 650 mg 10/15/18 07:44 10/17/18 16:45 Tylenol PO 650 mg Q4H PRN Administration Headache/Fever or Pain Albuterol/Ipratropium 3 ml 10/17/18 13:00 10/20/18 13:24 Duoneb NEB 3 ml [id number] MATTHEW Administration Anastrozole 1 mg 10/14/18 09:00 10/20/18 09:45 Arimidex PO 1 mg DAILY MATTHEW Administration Aspirin 81 mg 10/14/18 09:00 10/20/18 09:43 Ecotrin PO 81 mg DAILY MATTHEW Administration Atorvastatin Calcium 40 mg 10/13/18 21:00 10/19/18 20:19 Lipitor PO 40 mg HS MATTHEW Administration Carvedilol 12.5 mg 10/19/18 09:00 10/20/18 09:44 Coreg PO 12.5 mg BID MATTHEW Administration Cefdinir 300 mg 10/19/18 09:00 10/20/18 09:43 Omnicef PO 10/24/18 09:01 300 mg BID MATTHEW Administration Cholecalciferol 2,000 units 10/14/18 09:00 10/20/18 09:43 Vitamin D3 PO 2,000 units DAILY MATTHEW Administration Ferrous Sulfate 325 mg 10/18/18 08:00 10/20/18 09:44 Feosol PO 325 mg QAM-WM MATTHEW Administration Hydralazine HCl 100 mg 10/13/18 15:00 10/20/18 09:42 Apresoline PO 100 mg TID MATTHEW Administration Hydralazine HCl 10 mg 10/16/18 10:00 10/17/18 09:04 Apresoline SLOW IVP 10 mg Q4H PRN Administration SBP > 180 and HR < 70 Insulin Human Lispro 0 units 10/13/18 14:38 10/20/18 13:00 Humalog SC 6 unit .MILD SLIDING SCALE PRN Administration Mild Correctional Scale Insulin Human Lispro 0 units 10/13/18 21:09 10/19/18 21:20 Humalog SC 5 unit .BEDTIME SLIDING SC PRN Administration Bedtime Correctional Scale Isosorbide Mononitrate 30 mg 10/14/18 09:00 10/20/18 09:44 Imdur Er PO 30 mg DAILY MATTHEW Administration Levetiracetam 1,000 mg 10/13/18 21:00 10/20/18 09:44 Keppra PO 1,000 mg BID MATTHEW Administration Levothyroxine Sodium 125 mcg 10/14/18 06:00 10/20/18 07:13 Synthroid PO 125 mcg 0600 MATTHEW Administration Lisinopril 40 mg 10/14/18 09:00 10/20/18 09:44 Zestril PO 40 mg DAILY MATTHEW Administration Melatonin 6 mg 10/13/18 14:36 10/19/18 22:52 Melatonin PO 6 mg DAILY PRN Administration Insomnia Metformin HCl 500 mg 10/19/18 17:00 10/20/18 09:44 Glucophage PO 500 mg BID-WM MATTHEW Administration Mometasone Furoate/Formoterol Fumar 2 puff 10/19/18 18:30 10/20/18 07:53 Dulera 200 Mcg/5 Mcg Inhaler INH 2 puff BID-RT MATTHEW Administration Multivitamins 1 tab 10/14/18 09:00 10/20/18 09:45 Theragran PO 1 tab DAILY MATTHEW Administration Pantoprazole Sodium 40 mg 10/17/18 09:00 10/20/18 09:44 Protonix PO 40 mg DAILY MATTHEW Administration Polyethylene Glycol 17 gm 10/14/18 09:00 10/20/18 09:45 Miralax PO 17 gm DAILY MATTHEW Administration Prednisone 20 mg 10/19/18 09:00 10/20/18 09:45 Prednisone PO 10/25/18 09:01 20 mg QAM-WM MATTHEW Administration Sodium Chloride 1 gm 10/13/18 21:00 10/20/18 09:43 Sodium Chloride PO 1 gm BID MATTHEW Administration - Exam awake alert Eye: anicteric sclera ENT: normocephalic atraumatic Neck: no JVD Heart: RRR Respiratory: no wheezes, no ronchi (Diminished air movement both lung menendez) Gastrointestinal: soft, non-tender, non-distended, normal bowel sounds Extremities: no cyanosis, no edema Neurological: CN's grossly intact, no focal deficits Hosp A/P (1) Acute hypoxemic respiratory failure Code(s): J96.01 - ACUTE RESPIRATORY FAILURE WITH HYPOXIA Status: Acute (2) Acute on chronic diastolic heart failure Code(s): I50.33 - ACUTE ON CHRONIC DIASTOLIC (CONGESTIVE) HEART FAILURE Status : Acute (3) Elevated troponin Code(s): R74.8 - ABNORMAL LEVELS OF OTHER SERUM ENZYMES Status: Acute (4) Hyponatremia Code(s): E87.1 - HYPO-OSMOLALITY AND HYPONATREMIA Status: Acute (5) Urinary retention Code(s): R33.9 - RETENTION OF URINE, UNSPECIFIED Status: Acute (6) Diabetes mellitus Code(s): E11.9 - TYPE 2 DIABETES MELLITUS WITHOUT COMPLICATIONS Status: Acute (7) Carotid atherosclerosis Code(s): I65.29 - OCCLUSION AND STENOSIS OF UNSPECIFIED CAROTID ARTERY Status : Acute (8) Contusion of rib on right side Code(s): S20.211A - CONTUSION OF RIGHT FRONT WALL OF THORAX, INITIAL ENCOUNTER Status: Acute (9) Physical deconditioning Code(s): R53.81 - OTHER MALAISE Status: Acute (10) Gait instability Code(s): R26.81 - UNSTEADINESS ON FEET Status: Acute (11) HTN (hypertension) Code(s): I10 - ESSENTIAL (PRIMARY) HYPERTENSION Status: Chronic (12) Hypothyroidism Code(s): E03.9 - HYPOTHYROIDISM, UNSPECIFIED Status: Chronic (13) Obesity (BMI 30.0-34.9) Code(s): E66.9 - OBESITY, UNSPECIFIED Status: Chronic (14) Anemia, normocytic normochromic Code(s): D64.9 - ANEMIA, UNSPECIFIED Status: Acute - Plan Start incentive spirometry, CPAp as needed and oxygen Continue other treatments. get CBC and BMP in the am. Increase activity Will benefit from acute restorative therapy on discharge.
[2018-10-20 15:21] VITALS: BP 132/76
[2018-10-20] MEDS: Atorvastatin Calcium 40 MG TAB PO SCH (20:35)
[2018-10-20] MEDS: Melatonin 3 MG TAB PO PRN (21:54)
[2018-10-21] MEDS: Acetaminophen 325 MG TAB PO PRN (00:09)
[2018-10-21] MEDS: Levothyroxine Sodium 125 MCG TAB PO SCH (05:33)
[2018-10-21 05:39] VITALS: BMI 30.7
[2018-10-21 06:11] LABS: Anion Gap 10 mmol/L (10-20); BUN (Urea Nitrogen) 29 mg/dL (9.8-20.1); Calc. Creatinine Clearance 84 mL/min (70-130); Calcium 9.1 mg/dL (7.8-10.44); Carbon Dioxide 37 mmol/L (23-31); Chloride 93 mmol/L (98-107); Estimated GFR-MDRD 89; Glucose 103 mg/dL (83-110); Potassium 3.5 mmol/L (3.5-5.1); Sodium 136 mmol/L (136-145)
[2018-10-21 06:25] LABS: Band 1 % (5-11); Hemoglobin 7.1 g/dL (12.0-16.0); Lymphocytes 22 % (21-51); MDiff Complete? YES; Mean Corpuscular HGB CONC 33.9 g/dL (32.0-36.0); Mean Corpuscular Hemoglobin 31.1 pg (27.0-31.0); Mean Corpuscular Volume 91.6 fL (78.0-98.0); Mean Platelet Volume 6.8 fL (7.4-10.4); Monocytes 16 % (0-10); Myelocyte 1 % (0-0); Neutrophil 60 % (42-75); Platelet Count 230 thou/uL (130-400); Platelet Morphology Comment Appears Adequate; RBC Distribution Width 12.6 % (11.5-14.5); Red Blood Cell (RBC) Count 2.27 mill/uL (4.20-5.40); White Blood Cell (WBC) Count 4.6 thou/uL (4.8-10.8)
[2018-10-21] MEDS: Mometasone/Formoterol 120 PUFF INHALER INH SCH (08:13)
[2018-10-21] MEDS: Sodium Chloride 1 GM TAB PO SCH (09:35)
[2018-10-21] MEDS: Anastrozole 1 MG TAB PO SCH (09:35)
[2018-10-21] MEDS: hydrALAZINE 25 MG TAB PO SCH (09:35)
[2018-10-21] MEDS: levETIRAcetam 500 MG TAB PO SCH (09:35)
[2018-10-21] MEDS: Lisinopril 20 MG TAB PO SCH (09:35)
[2018-10-21] MEDS: Cefdinir 300 MG CAP PO SCH (09:35)
[2018-10-21] MEDS: Multivit, Therapeutic 1 TAB PO SCH (09:36)
[2018-10-21] MEDS: Aspirin 81 mg Enteric Coated Tablet PO SCH (09:36)
[2018-10-21] MEDS: metFORMIN 500 MG TAB PO SCH (09:36)
[2018-10-21] MEDS: Carvedilol 6.25 MG TAB PO SCH (09:36)
[2018-10-21] MEDS: Ferrous Sulfate 325 MG TAB PO SCH (09:36)
[2018-10-21] MEDS: Polyethylene Glycol 3350 17 GM Packet PO SCH (09:36)
[2018-10-21] MEDS: predniSONE 20 MG TAB PO SCH (09:36)
--- NOTE | 2018-10-21 09:42 | PRG ---
DATE OF SERVICE: 10/21/2018 SUBJECTIVE: This morning, she is better. She is less short of breath, less weak. OBJECTIVE: VITAL SIGNS: Sats 96 on 1 L, temperature 98.7, respirations 20, blood pressure 130/66. Chest: Minimal crackles. No wheezing. CARDIAC: Normal S1 and S2. No gallops. ABDOMEN: No mass. LABORATORY DATA: White count 4000, hemoglobin and hematocrit 7 and 20, platelet count is normal. ASSESSMENT: Respiratory failure, congestive heart failure, possibly pneumonia, anemia. She may probably benefit from transfusion of unit of packed cells. Try and keep the hemoglobin and hematocrit above 8. Otherwise continue PT, supportive care. We will follow. Job ID: [id number]
[2018-10-21 11:33] VITALS: TEMP 98.5
[2018-10-21] MEDS ORDERED: Iron, Sodium Ferric Gluconate 250 MG in Sodium Chloride 0.9% 100 ML IVPB SCH (13:00)
[2018-10-21 13:24] LABS: Hemoglobin 8.1 g/dL (12.0-16.0)
--- NOTE | 2018-10-21 13:53 | CON ---
DATE OF CONSULTATION: SUBJECTIVE: Ms. Coombs is currently doing well. No current complaints. OBJECTIVE: VITAL SIGNS: Blood pressure 160/80, pulse 96, temperature afebrile. LUNGS: Minimal wheezing, otherwise clear. HEART: Regular rate and rhythm. ABDOMEN: Soft, nontender, nontender. EXTREMITIES: No edema. IMPRESSION: 1. Type 2 myocardial infarction. 2. Chronic obstructive pulmonary disease. 3. Asthma. RECOMMENDATIONS: From a CV standpoint, she is stable. We will likely need placement. We will continue aspirin, atorvastatin in addition to low-dose carvedilol. Otherwise, I have no further recommendations. She is instructed to follow up with Dr. Tavares Moreno, her primary english teacher. Job ID: [id number]
--- NOTE | 2018-10-21 16:08 | DIS ---
DATE OF ADMISSION: 10/13/2018 DATE OF DISCHARGE: 10/21/2018 PRIMARY CARE PHYSICIAN: Dr. Octavio Simpson DISCHARGE DIAGNOSES: 1. Acute respiratory failure with hypoxia. 2. Acute on chronic diastolic heart failure. 3. Type 2 myocardial infarction. 4. Elevated troponin. 5. Hyponatremia. 6. Urinary retention. 7. Diabetes mellitus. 8. Carotid atherosclerosis. 9. Normocytic anemia. 10. Obesity. 11. Hypothyroidism. 12. Hypertension. 13. Physical deconditioning. 14. Gait instability. 15. Right chest contusion. 16. Atelectasis. 17. Presumed pneumonia. CONSULTS: 1. Cardiology. 2. Pulmonary and Critical Care. HOSPITAL COURSE: An 83-year-old female, [facility] resident with multiple comorbidities including recent acute CVA, COPD, and others, who was admitted after a fall. The patient sustained a bruise on the right side of the chest. The patient was treated initially with analgesics and incentive spirometer, but later developed fever and worsening shortness of breath associated with hypoxia and was subsequently transferred to the ICU and started on noninvasive respiratory support, incentive spirometer, breathing treatment, and antibiotics for possible COPD exacerbation and pneumonia. The patient also was noted to have elevation in troponin, necessitating Cardiology consult. Impression of type 2 myocardial infarction was made and the patient was treated medically with optimization of medications. She was improved and oxygen was down to baseline. She had physical deconditioning, for which, she was seen by Physical and Occupational therapy with improvement. She was later discharged back to the [facility] for continuation of restorative therapy. PHYSICAL EXAMINATION: VITAL SIGNS: Temperature 98.5, pulse 99, respiratory rate 22, SpO2 94% on 1 L nasal cannula, and blood pressure is 150/69. GENERAL: Elderly female, in no acute distress. Afebrile. Anicteric. HEENT: Normocephalic, atraumatic. CARDIOVASCULAR: Regular rhythm and rate with normal heart sounds one and two. RESPIRATORY: Fair air entry bilateral with few scattered rhonchi. Work of breathing is mildly increased. Right-sided chest resolving ecchymosis noted. GI: Abdomen is full, soft, nontender, nondistended with normal bowel sounds. EXTREMITIES: Grossly normal looking with no obvious edema or erythema. NEUROLOGIC: Conscious, alert, and oriented x3 with appropriate mental status. DISPOSITION: [facility] facility. DISCHARGE CONDITION: Improving. 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 DISCHARGE MEDICATIONS: 1. Aspirin 81 mg p.o. daily. 2. Lipitor 40 mg p.o. daily at bedtime. 3. Cholecalciferol 2000 units p.o. daily. 4. Plavix 75 mg p.o. daily. 5. Hydralazine 10 mg p.o. t.i.d. 6. Insulin lispro sliding scale. 7. Isosorbide mononitrate 30 mg p.o. daily. 8. Keppra 1000 mg p.o. b.i.d. 9. Levothyroxine 125 mcg p.o. daily. 10. Lisinopril 40 mg p.o. daily. 11. Melatonin 5 mg p.o. daily. 12. Metformin 500 mg p.o. b.i.d. 13. Multivitamin one tablet daily. 14. MiraLAX 17 g p.o. daily. 15. Sodium chloride one tablet p.o. b.i.d. 16. Acetaminophen p.r.n. for pain. 17. Arimidex 1 mg p.o. daily. 18. Coreg 12.5 mg p.o. b.i.d. 19. Omnicef 300 mg p.o. b.i.d. for 5 days. 20. Ferrous sulfate 325 mg p.o. daily. 21. Insulin 20 units p.o. daily at bedtime. 22. DuoNeb 3 mL q.6h p.r.n. for shortness of breath. 23. Mometasone/formoterol two puffs inhalation b.i.d. 24. Prednisone 20 mg p.o. daily for 5 days. TIME SPENT: This discharge took more than 38 minutes. Job ID: [id number]
--- NOTE | 2018-10-25 12:49 | EKG ---
Test Reason : Blood Pressure : / mmHG Vent. Rate : 093 BPM Atrial Rate : 093 BPM P-R Int : 112 ms QRS Dur : 074 ms QT Int : 384 ms P-R-T Axes : 068 007 114 degrees QTc Int : 477 ms Normal sinus rhythm Cannot rule out Anterior infarct , age undetermined T wave abnormality, consider lateral ischemia T wave in version I, aVL, V5-V6 Abnormal ECG Confirmed by DOMINIQUE SOLIZ DO ([id number]), greeting card editor CHERELLE JOHNSON ([id number]) on 10/25/2018 12:49:09 PM Referred By: Confirmed By:DOMINIQUE SOLIZ DO
--- NOTE | 2018-10-25 12:59 | EKG ---
Test Reason : Blood Pressure : / mmHG Vent. Rate : 094 BPM Atrial Rate : 094 BPM P-R Int : 140 ms QRS Dur : 078 ms QT Int : 388 ms P-R-T Axes : 066 013 115 degrees QTc Int : 485 ms Normal sinus rhythm Prolonged QT Abnormal ECG Confirmed by DOMINIQUE SOLIZ DO ([id number]), editorial clerk CHERELLE JOHNSON ([id number]) on 10/25/2018 12:58:45 PM Referred By: Confirmed By:DOMINIQUE SOLIZ DO
== END 2018-10-21 15:32 | DRG 280 ==
LOC: ERS 07:52 → 2NO 12:57 → CCU 10-16 05:14 → 2NO 10-16 12:00 → IMCU/EMU 10-17 09:31
PROVIDERS: ADMIT Internal Medicine; ATTEND Internal Medicine
PROC: 5A09457 Assistance with Respiratory Ventilation, 24-96 Consecutive Hours, Continuous Positive Airway Pressure (ICD-10-PCS; principal; 2018-10-17)
DX: I21.A1 Myocardial infarction type 2 (principal); J96.01 Acute respiratory failure with hypoxia; I50.33 Acute on chronic diastolic (congestive) heart failure; J44.1 Chronic obstructive pulmonary disease with (acute) exacerbation; J44.0 Chronic obstructive pulmonary disease with (acute) lower respiratory infection; Z66 Do not resuscitate; J18.9 Pneumonia, unspecified organism; E87.1 Hypo-osmolality and hyponatremia; I13.0 Hypertensive heart and chronic kidney disease with heart failure and stage 1 through stage 4 chronic kidney disease, or unspecified chronic kidney disease; J98.11 Atelectasis; S20.211A Contusion of right front wall of thorax, initial encounter; W17.2XXA Fall into hole, initial encounter; F03.90 Unspecified dementia, unspecified severity, without behavioral disturbance, psychotic disturbance, mood disturbance, and anxiety; E03.9 Hypothyroidism, unspecified; E78.5 Hyperlipidemia, unspecified; R33.9 Retention of urine, unspecified; I65.29 Occlusion and stenosis of unspecified carotid artery; R53.81 Other malaise; R26.81 Unsteadiness on feet; E66.9 Obesity, unspecified; N18.2 Chronic kidney disease, stage 2 (mild); E11.22 Type 2 diabetes mellitus with diabetic chronic kidney disease; G40.909 Epilepsy, unspecified, not intractable, without status epilepticus; D63.8 Anemia in other chronic diseases classified elsewhere; D50.9 Iron deficiency anemia, unspecified; I25.10 Atherosclerotic heart disease of native coronary artery without angina pectoris; E11.65 Type 2 diabetes mellitus with hyperglycemia; J45.909 Unspecified asthma, uncomplicated; Y92.002 Bathroom of unspecified non-institutional (private) residence as the place of occurrence of the external cause; Z86.73 Personal history of transient ischemic attack (TIA), and cerebral infarction without residual deficits; Z85.3 Personal history of malignant neoplasm of breast; Z98.49 Cataract extraction status, unspecified eye; Z90.49 Acquired absence of other specified parts of digestive tract; Z88.8 Allergy status to other drugs, medicaments and biological substances; Z68.30 Body mass index [BMI] 30.0-30.9, adult
CPT/HCPCS: 36415; 36416; 70450; 71045; 72125; 80048; 80053; 80076; 81015; 82553; 82607; 82728; 82746; 82805; 83010; 83540; 83550; 83605; 83615; 83735; 83880; 84484; 85025; 85046; 86850; 86900; 86901; 93005; 93010; 93306; 94640; 94660; 94664; 96372; J0360; J0696; J1650; J1815; J1940; J2916; J2930; J3490; J7512; J7620

== ENCOUNTER 2018-10-23 05:34 | Inpatient (IN) | payer MEDICARE, BC ==
[2018-10-23] MEDS ORDERED: Nitroglycerin 50 MG/250 ML BOT 250 ML ONE (05:50)
[2018-10-23 06:19] LABS: Bilirubin Negative (Negative); Blood, Urine Negative (Negative); Clarity Clear (Clear); Glucose, Urine (Dipstick) 50 mg/dL (Negative); Leukocyte Negative Leu/uL (Negative); Nitrite Negative (Negative); Protein, Urine (Dipstick) 20 mg/dL (Neg-Trace); Urobilinogen Normal mg/dL (Less than 2)
[2018-10-23] MEDS ORDERED: Cefepime 2 GM VIAL ONE (06:19)
[2018-10-23 06:24] LABS: #Lymphocytes 1.5 thou/uL (1.20-3.40); #Monocytes 1.4 thou/uL (0.11-0.59); #Neutrophils 9.5 thou/uL (1.40-6.50); %Basophils 0.1 % (0.0-1.0); %Eosinophils 0.3 % (0.0-10.0); %Lymphocytes 12.4 % (21.0-51.0); %Monocytes 10.9 % (0.0-10.0); %Neutrophils 76.2 % (42.0-75.0); Hemoglobin 8.7 g/dL (12.0-16.0); Mean Corpuscular HGB CONC 32.6 g/dL (32.0-36.0); Mean Corpuscular Hemoglobin 30.6 pg (27.0-31.0); Mean Corpuscular Volume 93.6 fL (78.0-98.0); Platelet Count 512 thou/uL (130-400); RBC Distribution Width 13.5 % (11.5-14.5); Red Blood Cell (RBC) Count 2.85 mill/uL (4.20-5.40); White Blood Cell (WBC) Count 12.4 thou/uL (4.8-10.8)
[2018-10-23 06:48] LABS: ALT (SGPT) 30 U/L (8-55); AST (SGOT) 20 U/L (5-34); Albumin 3.9 g/dL (3.4-4.8); Alkaline Phosphatase 68 U/L (40-150); Anion Gap 17 mmol/L (10-20); BUN (Urea Nitrogen) 32 mg/dL (9.8-20.1); Bilirubin, Total 1.1 mg/dL (0.2-1.2); Calc. Creatinine Clearance 0 mL/min (70-130); Calcium 9.4 mg/dL (7.8-10.44); Carbon Dioxide 34 mmol/L (23-31); Chloride 92 mmol/L (98-107); Estimated GFR-MDRD 60; Globulin 2.8 g/dL (2.4-3.5); Glucose 262 mg/dL (83-110); Potassium 3.7 mmol/L (3.5-5.1); Protein, Total 6.7 g/dL (6.0-8.3); Sodium 139 mmol/L (136-145)
[2018-10-23 07:17] LABS: CKMB 2.3 ng/mL (0-6.6)
[2018-10-23 07:24] LABS: Actual Bicarbonate (HCO3v) 31 mEq/L (22-28); Analyzer IN Cardio ER; Base Excess 7.8 mEq/L (-2.0 to +3.0); Calcium, Ionized 0.99 mmol/L (1.16-1.32); Chloride (ABG LAB) 91 mmol/L (98-106); Hemoglobin (Hb) 9.7 g/dL (11.7-16.1); Potassium - ABG Lab 3.32 mmol/L (3.70-5.30); Sodium 133.9 mmol/L (133-146); pH (venous) 7.52 (7.32-7.43)
[2018-10-23] MEDS ORDERED: Aspirin Chewable 81 MG TAB ONE (07:26)
[2018-10-23] MEDS ORDERED: Furosemide 40 MG/4 ML VIAL ONE (07:26)
--- NOTE | 2018-10-23 08:01 | RAD ---
EXAM: XR Chest 1 View Portable PROVIDED CLINICAL HISTORY: Dyspnea COMPARISON: 10/18/2018 FINDINGS: Cardiac silhouette appears prominent. Left basilar pleural and/or parenchymal opacity. Patchy airspac e disease right lower lung zone. No evidence for pneumothorax. Atherosclerosis. IMPRESSION: Bibasilar airspace disease with probable left pleural effusion. Correlate for pneumonia. Follow-up re commended.
[2018-10-23] MEDS ORDERED: Enoxaparin Sodium 80 MG/0.8 ML SYRINGE ONE (08:20)
[2018-10-23 08:52] VITALS: BMI 28.5
[2018-10-23] MEDS ORDERED: HYDROcodone/Acetaminophen 5/325 mg Tablet PO PRN (08:58)
[2018-10-23] MEDS ORDERED: Ondansetron PF 4 MG/2 ML Vial IVP PRN (08:58)
[2018-10-23] MEDS ORDERED: Acetaminophen 325 MG TAB PO PRN (08:58)
[2018-10-23] MEDS ORDERED: Non-Formulary Item 1 EACH (Melatonin [Melatonin] 1 TAB) PO PRN (09:00)
[2018-10-23] MEDS ORDERED: Levothyroxine 150 MCG TAB PO SCH (09:00)
[2018-10-23] MEDS ORDERED: Potassium Chloride 20 MEQ TAB PO SCH (09:00)
[2018-10-23] MEDS ORDERED: Dextrose 50% Abboject 50 ML SYRINGE SLOW IVP PRN (09:02)
[2018-10-23] MEDS ORDERED: Dextrose 5% in Water 1,000 ML IV PRN (09:02)
[2018-10-23] MEDS ORDERED: Nitroglycerin 50 MG/250 ML BOT 250 ML IVPB SCH (09:30)
[2018-10-23] MEDS: Enoxaparin Sodium 80 MG/0.8 ML SYRINGE SC SCH ×2 (09:33→20:13)
[2018-10-23 09:51] LABS: Troponin I 0.994 ng/mL (< 0.028)
[2018-10-23] MEDS: Aspirin 81 mg Enteric Coated Tablet PO SCH (09:51)
[2018-10-23] MEDS: Carvedilol 6.25 MG TAB PO SCH ×2 (09:52→20:10)
[2018-10-23] MEDS: Lisinopril 20 MG TAB PO SCH (09:53)
[2018-10-23] MEDS: levETIRAcetam 500 MG TAB PO SCH ×2 (09:53→20:11)
[2018-10-23] MEDS ORDERED: Prevnar 13-Val Conj/PF 0.5 ML SYRINGE IM ONE (10:00)
--- NOTE | 2018-10-23 10:24 | CON ---
DATE OF CONSULTATION: 10/23/2018 PRIMARY PROGRAM CONSULTANT: At [facility], Dr. Trav Chandler. REASON FOR CONSULTATION: Congestive heart failure and non-ST elevation myocardial infarction. HISTORY OF PRESENT ILLNESS: Ms. Coombs is a very pleasant 83-year-old woman. She has history of diastolic congestive heart failure. The patient was brought into the hospital with abrupt onset of difficulty breathing and found to be in congestive heart failure. She received furosemide and nitrates and is breathing better, but states she is still somewhat short of breath. There is no chest pain. The patient has been hospitalized recently. She was found to be anemic. She also had some degree of dementia, thought should be best treated medically. Interventional invasive therapy is not done due to these other problems. The patient is alert and oriented now. Medication currently, she is on intravenous nitroglycerin. She has received furosemide. She is also receiving empiric antibiotic. REVIEW OF SYSTEMS: CONSTITUTIONAL: She feels short of breath. VISION: No changes. HEARING: No changes. PULMONARY: She is short of breath. CARDIAC: difficulty breathing. GASTROINTESTINAL: No nausea, vomiting, or diarrhea. SKIN: No rashes. NEUROLOGIC: No unilateral weakness or numbness. PSYCHIATRIC: No unusual depression or anxiety. HOME MEDICATIONS: Please see the list, looks like it includes; 1. Aspirin. 2. Plavix. 3. Isosorbide. 4. Lisinopril. 5. Hydralazine. 6. Carvedilol. EKG shows sinus tachycardia. No acute ST or T-wave changes. Troponin level 0.867. BNP 1141. Chest x-ray, does look like some degree of pulmonary congestion and heart failure. PHYSICAL EXAMINATION: GENERAL: On examination, this is a pleasant elderly woman. She is alert and oriented. She said her breathing is better, but not back to normal yet. VITAL SIGNS: Blood pressure is 140/70 and pulse is 108 and sinus tachycardia. HEENT: Eyes, sclerae are nonicteric. Mouth, mucous membranes moist. NECK: Supple. No lymphadenopathy. LUNGS: some rales, especially at the left base. No wheezing. CARDIAC: Normal S1 and normal S2. No murmur, rub, or gallop. ABDOMEN: Soft and nontender. No hepatosplenomegaly. EXTREMITIES: Warm and dry. No clubbing or cyanosis. There is no edema. PERTINENT LABORATORIES: As outlined above. As mentioned, troponin 0.867. ASSESSMENT: 1. Diastolic heart failure, acute on chronic. 2. Non-ST elevation myocardial infarction probably type 2. 3. Chronic anemia with borderline low ferritin level and low iron level, probably is iron deficient. PLAN: 1. She has received intravenous furosemide. 2. She get one dose of Lovenox. We will hold off on further in view of her anemia, which is probably iron deficient. 3. Replete potassium. 4. Dr. Chandler to see the patient tomorrow to decide further care. Job ID: [id number]
[2018-10-23] MEDS: HumaLOG 300 UNITS/3 ML VIAL SC PRN ×2 (12:09→17:23)
--- NOTE | 2018-10-23 12:26 | PDOC.EVN ---
Event Note - Event Note Event Note: H&P #[id number]
--- NOTE | 2018-10-23 13:34 | HP ---
CHIEF COMPLAINT: Difficulty breathing and chest discomfort. HISTORY OF PRESENT ILLNESS: This is an 83-year-old female, presented to the hospital with hypoxia, difficulty breathing, chest pain. The patient was admitted to Internal Medicine Team, put in ICU, evaluated by ICU team as well as Cardiology. The patient was found to have NSTEMI. The patient upon time of evaluation states that she feels well, still is having some discomfort in breathing and otherwise normal. History obtained from son as the patient is unable to provide a good solid history. 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 The patient also states that she has seen perpetual inventory clerk multiple times in the past, Dr. Chandler as an outpatient perpetual inventory clerk. She was at [facility], however, has come here due to proximity to the hospital. The patient's son states that he would want his mother to be a DNR/DNI, which was established last week when the patient was here at this hospital. Also states that he would prefer to consider palliative/hospice options versus aggressive therapy. The patient's son states that he otherwise would like to have the input from the perpetual inventory clerk before making a decision as far as where to go moving forward. The patient is seen and examined in the ICU. Son at bedside. All questions answered. REVIEW OF SYSTEMS: All systems reviewed, pertinent positive in HPI, otherwise negative. PAST MEDICAL HISTORY: Positive for hypertension, hyperlipidemia, coronary artery disease, diabetes mellitus type 2, anemia, hypothyroidism, as well as insomnia. PAST SOCIAL HISTORY: Nondrinker, nonsmoker. PAST FAMILY HISTORY: Noncontributory. HOME MEDICATIONS: See MAR. PHYSICAL EXAMINATION: VITAL SIGNS: Blood pressure 118/75, heart rate of 89, temperature of 97.6, O2 saturations of 97% on 2 L nasal cannula, and respiratory rate of 22. GENERAL: The patient is lying in bed. No acute discomfort. HEENT: Pupils equal, round, and reactive to light and accommodation. Extraocular muscles intact. Oral cavity, moist and pink. NECK: Supple, mobile, nontender. Thyroid appreciated. CARDIOVASCULAR: S1 and S2. No rubs or gallops. Faint systolic ejection murmur appreciated. PULMONARY: Clear to auscultation bilaterally. No rales, rhonchi, or wheezing appreciated. ABDOMEN: Positive bowel sounds. Soft, nontender, nondistended. EXTREMITIES: 2+ peripheral pulses. Trace pitting edema in bilateral lower extremity. No cyanosis or clubbing noted. NEUROLOGICAL: Cranial nerves 2 through 12 intact. Alert and oriented to person and place, and time. LABORATORY DATA: Reviewed. CBC, BMP, as well as UA, and imaging studies reviewed. Prior echo from October 14, 2018, was also reviewed. ASSESSMENT: 1. [id number] myocardial infarction. 2. Hypothyroidism. 3. Hyperlipidemia. 4. Hypertension. 5. Diabetes mellitus, type 2. 6. Anemia. PLAN: 1. At this point in time, we will admit the patient to IMCU team. Consult to Pulmonary and Cardiology. 2. We will start the patient on aspirin, Lovenox, and atorvastatin, outpatient per son, the patient was taking Plavix; however, at this hospital, the Cardiology Services tend to resume or continue Plavix, so we will defer to Cardiology team on Plavix continuation or not as I am not sure if there is going to be a possible intervention from a cardiac catheter perspective. 3. Discussed with the patient's son at length. He is requesting some information regarding palliative/hospice care. We will place a consult for Case Management to provide information for palliative/hospice care. The patient's family is not ready to sign her up information, so we will oblige. 4. We will make the patient DNR per request of her son. 5. Continue otherwise insulin for diabetes, thyroid medication for thyroid, and medical management for the ACS as stated above. 6. Case and plan discussed with the patient's son at length. He understood and agreed with this plan. Job ID: [id number]
[2018-10-23] MEDS ORDERED: Carvedilol 6.25 MG TAB PO SCH (17:00)
[2018-10-23] MEDS: Potassium Chloride 10 MEQ TAB PO SCH (17:22)
[2018-10-23 19:08] LABS: Troponin I 1.264 ng/mL (< 0.028)
[2018-10-23] MEDS: Atorvastatin Calcium 40 MG TAB PO SCH (20:11)
[2018-10-23] MEDS: Insulin Glargine 5 UNITS in Pre-Filled Syringe 1 EACH SC SCH (20:12)
[2018-10-23] MEDS: Melatonin 3 MG TAB PO PRN (21:35)
--- NOTE | 2018-10-24 00:57 | CON ---
DATE OF CONSULTATION: 10/23/2018 HISTORY OF PRESENT ILLNESS: Ms. Coombs is an 83-year-old female. I met with her and also interviewed her with her son present. I have taken care of her many years ago, who is now in remission from a malignancy. She presented with shortness of breath. She has a history of diastolic heart failure and presented with shortness of breath, congestive heart failure and a non ST elevation [place]. She has been diuresed and her blood pressure is controlled with nitroglycerin drip and apparently she has dramatically improved clinically. PAST MEDICAL HISTORY: Remarkable for multiple hospitalizations at [facility]. She was transferred to [place] and apparently almost intubated with congestive heart failure. Her son tells me that she is either hypotensive and has an elevated creatinine or volume overloaded. It has apparently been very hard to find her point of euvolemia. She has either been in the alf facility or the hospital for the majority of the past few months. PAST MEDICAL HISTORY: Remarkable for; 1. CVA. 2. History of breast cancer. 3. Apparently, she has a new breast mass. 4. History of urinary retention. 5. History of diabetes. 6. Hypothyroidism. 7. Lipid disorder. 8. Hypertension. 9. History of cataract surgery. 10. History of cervical spinal stenosis surgery. 11. History of partial colectomy secondary to a polyp. 12. History of herniorrhaphy. 13. History of lumpectomy followed by radiation. SOCIAL HISTORY: She quit smoking 15 years ago. She drinks occasionally. ALLERGIES: SHE REPORTS AMLODIPINE AND FELODIPINE INTOLERANCE. FAMILY HISTORY: Negative for lung disease in early age. REVIEW OF SYSTEMS: A 10-point review of systems completed is otherwise negative. PHYSICAL EXAMINATION: GENERAL: She had been weaned off her nitroglycerin drip by the time I saw her this morning after she had obtained her home medications. VITAL SIGNS: Blood pressure 120/68, heart rate 102, respiratory rate is in the 20s, oximetry is 97%. HEENT: Pupils are equal. Sclerae are anicteric. NECK: Supple. LUNGS: Clear. HEART: Regular rhythm. S1 and S2 are normal. ABDOMEN: Soft and nontender. EXTREMITIES: Without clubbing, cyanosis, or edema. NEUROLOGIC: Nonfocal. LABORATORY DATA: Chest radiograph is consistent with pulmonary edema. IMPRESSION: 1. Diastolic heart failure. 2. New breast mass in the right breast. I did not examine this. 3. She appears to be clinically improving with Lasix and nitroglycerin. I doubt her infiltrates are of infectious etiology. We will follow with the other physicians caring for. This is a 50 minute consult, with greater than 50% of time spent on unit coordinating care. Job ID: [id number] MTDD
[2018-10-24 05:38] LABS: Band 1 % (5-11); Eosinophils 3 % (0-10); Hemoglobin 7.4 g/dL (12.0-16.0); Lymphocytes 19 % (21-51); MDiff Complete? YES; Mean Corpuscular HGB CONC 32.6 g/dL (32.0-36.0); Mean Corpuscular Volume 94.9 fL (78.0-98.0); Monocytes 7 % (0-10); Myelocyte 1 % (0-0); Neutrophil 68 % (42-75); Platelet Count 254 thou/uL (130-400); RBC Distribution Width 13.4 % (11.5-14.5); Reactive Lymphocytes 1 % (0-10); Red Blood Cell (RBC) Count 2.39 mill/uL (4.20-5.40); White Blood Cell (WBC) Count 4.5 thou/uL (4.8-10.8)
[2018-10-24 05:41] LABS: Anion Gap 13 mmol/L (10-20); BUN (Urea Nitrogen) 31 mg/dL (9.8-20.1); Calc. Creatinine Clearance 62 mL/min (70-130); Calcium 9.1 mg/dL (7.8-10.44); Carbon Dioxide 36 mmol/L (23-31); Chloride 93 mmol/L (98-107); Estimated GFR-MDRD 69; Glucose 114 mg/dL (83-110); Potassium 4.2 mmol/L (3.5-5.1); Sodium 138 mmol/L (136-145)
[2018-10-24] MEDS: Levothyroxine Sodium 125 MCG TAB PO SCH (06:37)
[2018-10-24] MEDS: Carvedilol 6.25 MG TAB PO SCH ×2 (07:50→20:01)
[2018-10-24] MEDS: Potassium Chloride 10 MEQ TAB PO SCH ×2 (07:50→17:19)
[2018-10-24] MEDS: Lisinopril 20 MG TAB PO SCH (08:00)
[2018-10-24] MEDS: Enoxaparin Sodium 80 MG/0.8 ML SYRINGE SC SCH ×2 (08:00→20:01)
[2018-10-24] MEDS: Aspirin 81 mg Enteric Coated Tablet PO SCH (08:00)
[2018-10-24] MEDS: levETIRAcetam 500 MG TAB PO SCH ×2 (08:00→20:01)
--- NOTE | 2018-10-24 08:39 | PRG ---
DATE OF SERVICE: 10/24/2018 SUBJECTIVE: Payal Coombs is an 83-year-old female who left the hospital 2 days ago, coming back with shortness of breath. She was hypoxic and sats were low when she arrived. She is in the ICU. This morning, says she is feeling better. She is not coughing or wheezing. OBJECTIVE: VITAL SIGNS: Saturations are 95% on 2 L, blood pressure 120\78, pulse 80, respiratory rate 18. CHEST: Decreased breath sounds. No wheezing. CARDIAC: Normal S1, S2. No gallops. ABDOMEN: No masses. LABORATORY DATA: X-ray shows a right-sided infiltrate. White count 4000, H and H are 7 and 22, platelet count 254. Lytes normal. Troponin 1.26. ASSESSMENT: Acute on chronic respiratory failure, diastolic dysfunction, right-sided infiltrate, anemia. PLAN: Continue cardiac care. Continue supportive care, neb treatment. She is apparently do not intubate. We will follow while in the ICU. Job ID: [id number] MTDD
--- NOTE | 2018-10-24 10:03 | RAD ---
SINGLE VIEW CHEST: Date: 10/24/18 COMPARISON: 10/23/18. HISTORY: Ventilated patient with respiratory failure. FINDINGS: Single view of the chest shows an enlarged but stable cardiomediastinal silhouette. There is a veil-l gennaro opacity in the inferior aspect of each thorax which likely represent layering pleural effusions. IMPRESSION: Small layering pleural effusions. POS: [facility]
[2018-10-24] MEDS: HumaLOG 300 UNITS/3 ML VIAL SC PRN ×2 (11:36→17:21)
--- NOTE | 2018-10-24 14:58 | PDOC.HOSPP ---
- Subjective Subjective: 83 y/o female with multiple co morbidities including CAD, PVD, COPD, recently discharged from following treatment for acute respiratory failure due to atelecatasis./pneumonia after chest trauma following a fall, now readmitted with acute chest pain associated with SOB. Found to have acute NSTEMI. Patient and family elected medical mgt. Chestpain and SOB have subsided. - Objective Vital Signs & Weight: Vital Signs (12 hours) Temp Pulse Resp BP Pulse Ox 10/24/18 14:06 86 22 H 98 10/24/18 08:43 99 10/24/18 08:40 87 18 99 10/24/18 08:00 135/85 94 L 10/24/18 07:50 135/85 10/24/18 07:00 97.9 F 10/24/18 04:00 97.5 F L Weight Weight 160 lb 14.999 oz Most Recent Monitor Data Heart Rate from ECG 88 NIBP 144/73 NIBP BP-Mean 96 Respiration from ECG 25 SpO2 98 I&O: 10/23/18 10/24/18 10/25/18 06:59 06:59 06:59 Intake Total 800 350 Output Total 1665 275 Balance -865 75 Result Diagrams: 10/24/18 04:51 10/24/18 04:51 Additional Labs: Accuchecks 10/24/18 10/23/18 10/23/18 11:11 21:36 16:36 POC Glucose 178 H 190 H 222 H ROS - Review of Systems All systems: All other ROS were reviewed and found negative. - Medication Medications: Active Medications Generic Name Dose Route Start Last Admin Trade Name Joshua PRN Reason Stop Dose Admin Albuterol/Ipratropium 3 ml 10/23/18 13:00 10/24/18 14:06 Duoneb NEB 3 ml [id number] MATTHEW Administration Atorvastatin Calcium 80 mg 10/23/18 21:00 10/23/18 20:11 Lipitor PO 80 mg HS MATTHEW Administration Carvedilol 12.5 mg 10/23/18 09:00 10/24/18 07:50 Coreg PO 12.5 mg BID MATTHEW Administration Enoxaparin Sodium 80 mg 10/23/18 09:00 10/24/18 08:00 Lovenox SC 80 mg 0900,2100 MATTHEW Administration Insulin Glargine 5 units/ 0.05 mls @ 0 mls/hr 10/23/18 21:00 10/23/18 20:12 Miscellaneous Medication SC 0.05 mls HS MATTHEW Administration Insulin Human Lispro 0 units 10/23/18 09:02 10/24/18 11:36 Humalog SC 2 unit .MILD SLIDING SCALE PRN Administration Mild Correctional Scale Levetiracetam 1,000 mg 10/23/18 09:00 10/24/18 08:00 Keppra PO 1,000 mg BID MATTHEW Administration Levothyroxine Sodium 125 mcg 10/24/18 06:00 10/24/18 06:37 Synthroid PO 125 mcg 0600 MATTHEW Administration Lisinopril 40 mg 10/23/18 09:00 10/24/18 08:00 Zestril PO 40 mg DAILY MATTHEW Administration Melatonin 4.5 mg 10/23/18 12:15 10/23/18 21:35 Melatonin PO 4.5 mg HSPRN PRN Administration Insomnia Potassium Chloride 10 meq 10/23/18 17:00 10/24/18 07:50 Klor-Con 10 PO 10 meq BID-WM MATTHEW Administration Sodium Chloride 10 ml 10/23/18 21:00 10/24/18 08:01 Flush - Normal Saline IVF 10 ml Q12HR MATTHEW Administration - Exam awake alert Eye: anicteric sclera ENT: normocephalic atraumatic Neck: supple, symmetric, no JVD Heart: RRR Respiratory: no rales, no ronchi (Fair air entry bilaterally with few transmitted sound) Gastrointestinal: soft, non-tender, non-distended, normal bowel sounds Extremities: no cyanosis, no edema Skin: normal turgor (Resolving ecchymosis of the right lateral posterior chest/ flank) Neurological: CN's grossly intact, no focal deficits Psychiatric: normal affect, A&O x 3 Hosp A/P (1) Acute non-ST elevation myocardial infarction (NSTEMI) Code(s): I21.4 - NON-ST ELEVATION (NSTEMI) MYOCARDIAL INFARCTION Status: Acute (2) Anemia, normocytic normochromic Code(s): D64.9 - ANEMIA, UNSPECIFIED Status: Acute (3) Carotid atherosclerosis Code(s): I65.29 - OCCLUSION AND STENOSIS OF UNSPECIFIED CAROTID ARTERY Status : Acute (4) Diabetes mellitus Code(s): E11.9 - TYPE 2 DIABETES MELLITUS WITHOUT COMPLICATIONS Status: Acute (5) Physical deconditioning Code(s): R53.81 - OTHER MALAISE Status: Acute (6) DM2 (diabetes mellitus, type 2) Status: Chronic (7) HLD (hyperlipidemia) Code(s): E78.5 - HYPERLIPIDEMIA, UNSPECIFIED Status: Chronic (8) HTN (hypertension) Code(s): I10 - ESSENTIAL (PRIMARY) HYPERTENSION Status: Chronic (9) Hypothyroidism Code(s): E03.9 - HYPOTHYROIDISM, UNSPECIFIED Status: Chronic - Plan Continue anticoagulation with lovenox. Start antiplatelets. Increase imdur to 60 mg daily. Wean off Nitro infusion Restart anastrazole Insulin therapy to continue. Monitor CBC and BMP. PT/OT Transfer to tele
--- NOTE | 2018-10-24 15:50 | PRG ---
DATE OF SERVICE: 10/24/2018 SUBJECTIVE: Ms. Coombs seen this morning. She is in good spirits. She does not know why she came to the emergency room. She states she was picked up by ambulance. She does have underlying dementia. From the records, it appears that she did develop shortness of breath. We would re-engage in her care given mildly elevated troponin. The patient also has significant anemia with a hemoglobin of 7.4. OBJECTIVE: GENERAL: She is not oriented to time, person, or place. VITAL SIGNS: Blood pressure 144/73, pulse 86, and temperature afebrile. NEUROLOGIC: The patient is alert and oriented x3 with no focal neurologic deficits. HEENT: Sclerae without icterus. Mouth has moist mucous membranes with normal pallor. NECK: No JVD. Carotid upstroke brisk. No bruits bilaterally. LUNGS: Clear to auscultation with unlabored respirations. BACK: No scoliosis or kyphosis. CARDIAC: Regular rate and rhythm with normal S1 and S2. No S3 or S4 noted. No significant rubs, murmurs, thrills, or gallops noted throughout the precordium. PMI is not displaced. There is no parasternal heave. ABDOMEN: Soft, nontender, nondistended. No peritoneal signs present. No hepatosplenomegaly. No abnormal striae. EXTREMITIES: 2+ femoral and 2+ dorsalis pedis pulses. No cyanosis, clubbing, or edema. SKIN: No gross abnormalities. PERTINENT LABORATORY DATA: As described above with a CK-MB of 2.3. IMPRESSION: 1. Elevated troponin. 2. Shortness of breath. 3. Hypoxia. 4. ? pneumonia. RECOMMENDATIONS: I will continue with a more conservative approach. She has no current symptoms suggesting angina. She has opted for conservative therapy in the past. This has been discussed at length with her and her son. She is currently being seen and evaluated by Dr. Matt Roman. She is currently on aspirin and atorvastatin in addition to carvedilol and Plavix. We will likely stop Plavix given her anemia. Job ID: [id number]
[2018-10-24] MEDS: Insulin Glargine 5 UNITS in Pre-Filled Syringe 1 EACH SC SCH (19:59)
[2018-10-24] MEDS: Atorvastatin Calcium 40 MG TAB PO SCH (20:00)
[2018-10-24] MEDS: Melatonin 3 MG TAB PO PRN (22:47)
[2018-10-25 04:52] LABS: Anion Gap 11 mmol/L (10-20); BUN (Urea Nitrogen) 26 mg/dL (9.8-20.1); Calc. Creatinine Clearance 76 mL/min (70-130); Carbon Dioxide 36 mmol/L (23-31); Chloride 95 mmol/L (98-107); Estimated GFR-MDRD 86; Glucose 144 mg/dL (83-110); Potassium 3.8 mmol/L (3.5-5.1); Sodium 138 mmol/L (136-145)
[2018-10-25 05:05] LABS: Band 4 % (5-11); Hemoglobin 7.5 g/dL (12.0-16.0); Lymphocytes 28 % (21-51); MDiff Complete? YES; Mean Corpuscular HGB CONC 32.6 g/dL (32.0-36.0); Mean Corpuscular Hemoglobin 30.9 pg (27.0-31.0); Mean Corpuscular Volume 94.8 fL (78.0-98.0); Mean Platelet Volume 7.1 fL (7.4-10.4); Monocytes 1 % (0-10); Neutrophil 67 % (42-75); Platelet Count 238 thou/uL (130-400); RBC Distribution Width 13.2 % (11.5-14.5); Red Blood Cell (RBC) Count 2.41 mill/uL (4.20-5.40); White Blood Cell (WBC) Count 5.3 thou/uL (4.8-10.8)
[2018-10-25] MEDS: Levothyroxine Sodium 125 MCG TAB PO SCH (06:11)
--- NOTE | 2018-10-25 07:49 | RAD ---
EXAM: Single view of the chest HISTORY: Ventilated patient with respiratory failure COMPARISON: 10/24/2018 FINDINGS: Single view of the chest shows an enlarged but stable cardiomediastinal silhouette. There are small bilateral layering pleural effusions. No consolidation is seen. Degenerative changes are seen in the spine. IMPRESSION: Small stable bilateral pleural effusions
[2018-10-25] MEDS ORDERED: Clopidogrel Bisulfate 75 MG TAB PO SCH (09:00)
[2018-10-25] MEDS: Aspirin 81 mg Enteric Coated Tablet PO SCH (09:01)
[2018-10-25] MEDS: Anastrozole 1 MG TAB PO SCH (09:02)
[2018-10-25] MEDS: levETIRAcetam 500 MG TAB PO SCH ×2 (09:02→21:21)
[2018-10-25] MEDS: Lisinopril 20 MG TAB PO SCH (09:02)
[2018-10-25] MEDS: Enoxaparin Sodium 80 MG/0.8 ML SYRINGE SC SCH (09:03)
[2018-10-25] MEDS: Potassium Chloride 10 MEQ TAB PO SCH ×2 (09:03→16:48)
[2018-10-25] MEDS: Carvedilol 6.25 MG TAB PO SCH ×2 (09:03→21:22)
[2018-10-25] MEDS: AcetaZOLAMIDE 250 MG TAB PO SCH (09:10)
--- NOTE | 2018-10-25 10:10 | PRG ---
DATE OF SERVICE: 10/25/2018 SUBJECTIVE: This morning, more awake. She is less short of breath. I's and O's are still negative. OBJECTIVE: VITAL SIGNS: Sats are 98 on 2 L, temperature 97, blood pressure 170/74. CHEST: Decreased breath sounds without any wheezing. CARDIAC: Normal S1, S2. No gallops. LABORATORY DATA: Creatinine is normal. White count 5000. H and H are 7 and 22. X-ray still shows significant bilateral pleural effusion. IMPRESSION: Respiratory failure, diastolic dysfunction, bilateral pleural effusion, chronic obstructive pulmonary disease, advanced age. Need to add a diuretic to her present regime. Otherwise, continue supportive care. PT eventually placement. Long-term prognosis is grave. She is a DNR. Job ID: [id number]
[2018-10-25] MEDS: HumaLOG 300 UNITS/3 ML VIAL SC PRN ×2 (12:26→18:14)
--- NOTE | 2018-10-25 13:12 | PDOC.HOSPP ---
- Subjective Subjective: 83 y/o female with multiple co morbidities including CAD, PVD, COPD, recently discharged from following treatment for acute respiratory failure due to atelecatasis./pneumonia after chest trauma following a fall, now readmitted with acute chest pain associated with SOB. Found to have acute NSTEMI. Patient and family elected medical mgt. Chest pain and SOB have subsided. No new complaint. - Objective Vital Signs & Weight: Vital Signs (12 hours) Temp Pulse Resp BP BP Pulse Ox 10/25/18 12:36 22 H 10/25/18 12:00 98.0 F 86 19 169/72 H 100 10/25/18 09:03 145/69 H 10/25/18 09:02 145/69 H 10/25/18 08:02 97.5 F L 91 19 170/74 H 98 10/25/18 06:19 80 16 10/25/18 03:59 97.7 F 77 16 135/61 99 Weight Weight 160 lb 14.999 oz Most Recent Monitor Data Heart Rate from ECG 90 NIBP 144/85 NIBP BP-Mean 104 Respiration from ECG 24 SpO2 96 I&O: 10/24/18 10/25/18 10/26/18 06:59 06:59 06:59 Intake Total 800 990 Output Total 1665 1130 Balance -865 -140 Result Diagrams: 10/25/18 03:55 10/25/18 03:55 Additional Labs: Accuchecks 10/25/18 10/25/18 10/24/18 11:05 06:27 19:56 POC Glucose 174 H 141 H 223 H 10/24/18 16:31 POC Glucose 215 H ROS - Review of Systems All systems: All other ROS were reviewed and found negative. - Medication Medications: Active Medications Generic Name Dose Route Start Last Admin Trade Name Freq PRN Reason Stop Dose Admin Acetazolamide 250 mg 10/25/18 09:00 10/25/18 09:10 Diamox PO 10/28/18 09:01 250 mg DAILY MATTHEW Administration Albuterol/Ipratropium 3 ml 10/23/18 13:00 10/25/18 12:36 Duoneb NEB 3 ml [id number] MATTHEW Administration Anastrozole 1 mg 10/25/18 09:00 10/25/18 09:02 Arimidex PO 1 mg DAILY MATTHEW Administration Aspirin 81 mg 10/25/18 09:00 10/25/18 09:01 Ecotrin PO 81 mg DAILY MATTHEW Administration Atorvastatin Calcium 80 mg 10/23/18 21:00 10/24/18 20:00 Lipitor PO 80 mg HS MATTHEW Administration Carvedilol 12.5 mg 10/23/18 09:00 10/25/18 09:03 Coreg PO 12.5 mg BID MATTHEW Administration Enoxaparin Sodium 80 mg 10/23/18 09:00 10/25/18 09:03 Lovenox SC 80 mg 0900,2100 MATTHEW Administration Insulin Glargine 5 units/ 0.05 mls @ 0 mls/hr 10/23/18 21:00 10/24/18 19:59 Miscellaneous Medication SC 0.05 mls HS MATTHEW Administration Insulin Human Lispro 0 units 10/23/18 09:02 10/25/18 12:26 Humalog SC 2 unit .MILD SLIDING SCALE PRN Administration Mild Correctional Scale Isosorbide Mononitrate 60 mg 10/25/18 09:00 10/25/18 09:02 Imdur PO 60 mg DAILY MATTHEW Administration Levetiracetam 1,000 mg 10/23/18 09:00 10/25/18 09:02 Keppra PO 1,000 mg BID MATTHEW Administration Levothyroxine Sodium 125 mcg 10/24/18 06:00 10/25/18 06:11 Synthroid PO 125 mcg 0600 MATTHEW Administration Lisinopril 40 mg 10/23/18 09:00 10/25/18 09:02 Zestril PO 40 mg DAILY MATTHEW Administration Melatonin 4.5 mg 10/23/18 12:15 10/24/18 22:47 Melatonin PO 4.5 mg HSPRN PRN Administration Insomnia Potassium Chloride 10 meq 10/23/18 17:00 10/25/18 09:03 Klor-Con 10 PO 10 meq BID-WM MATTHEW Administration Sodium Chloride 10 ml 10/23/18 21:00 10/25/18 09:04 Flush - Normal Saline IVF 10 ml Q12HR MATTHEW Administration - Exam awake alert Eye: anicteric sclera ENT: normocephalic atraumatic Neck: supple, no JVD Heart: RRR Respiratory: no wheezes, no rales, no ronchi (Work of breathing is increased) Gastrointestinal: soft, non-distended, normal bowel sounds Extremities: no cyanosis, no edema Neurological: CN's grossly intact, no focal deficits Hosp A/P (1) Acute non-ST elevation myocardial infarction (NSTEMI) Code(s): I21.4 - NON-ST ELEVATION (NSTEMI) MYOCARDIAL INFARCTION Status: Acute (2) Anemia, normocytic normochromic Code(s): D64.9 - ANEMIA, UNSPECIFIED Status: Acute (3) Carotid atherosclerosis Code(s): I65.29 - OCCLUSION AND STENOSIS OF UNSPECIFIED CAROTID ARTERY Status : Acute (4) Diabetes mellitus Code(s): E11.9 - TYPE 2 DIABETES MELLITUS WITHOUT COMPLICATIONS Status: Acute (5) Physical deconditioning Code(s): R53.81 - OTHER MALAISE Status: Acute (6) DM2 (diabetes mellitus, type 2) Status: Chronic (7) HLD (hyperlipidemia) Code(s): E78.5 - HYPERLIPIDEMIA, UNSPECIFIED Status: Chronic (8) HTN (hypertension) Code(s): I10 - ESSENTIAL (PRIMARY) HYPERTENSION Status: Chronic (9) Hypothyroidism Code(s): E03.9 - HYPOTHYROIDISM, UNSPECIFIED Status: Chronic - Plan Continue antithrombotic therapy with lovenox and asa. increase imdur to 60 mg daily. Restart hydralazine 50 tid. Increase activity as tolerated. Will give ferrlecit If Hb remained below 8, will consider PRBC inview of AMI
--- NOTE | 2018-10-25 13:20 | PQF ---
CLINICAL DOCUMENTATION IMPROVEMENT CLARIFICATION FORM: ICD-10 Updated PLEASE DO AN ADDENDUM TO THE PROGRESS NOTE WITH ANY DOCUMENTATION UPDATES OR ADDITIONS AND CARRY THROUGH TO DC SUMMARY. THANK YOU. DATE: 10/25/18 ATTN: DR. BLUM Please exercise your independent, professional judgment in responding to the clarification form. Clinical indicators are provided on the bottom of this form for your review Please check appropriate box(s): HEART FAILURE: ACUITY [ ] Acute [ ] Acute on Chronic [ X ] Chronic [ ] Other diagnosis [ ] Unable to determine In addition, please specify: Present on Admission (POA): [ X ] Yes [ ] No [ ] Unable to determine For continuity of documentation, please document condition throughout progress notes and discharge summary. Thank You. CLINICAL INDICATORS - SIGNS / SYMPTOMS / LABS CONSULTATION NOTE 10/23 (KELSEY): "DIASTOLIC HEART FAILURE" BNP 1141.7 RISKS: ACUTE RESPIRATORY FAILURE H/O CHF ADVANCED AGE MULTIPLE COMORBIDITIES TREATMENT: LASIX IV (ER) COREG (10/23-PRESENT) CARDIAC MONITORING CARDIOLOGY CONSULT (This form is maintained as a part of the permanent medical record) [address] All Rights Reserved SPEEDY [email or web address] Office: [phone] [facility]
[2018-10-25] MEDS ORDERED: Iron, Sodium Ferric Gluconate 250 MG in Sodium Chloride 0.9% 100 ML IVPB SCH (13:30)
[2018-10-25] MEDS: hydrALAZINE 25 MG TAB PO SCH ×2 (14:53→21:23)
--- NOTE | 2018-10-25 17:13 | PRG ---
DATE OF SERVICE: 10/25/2018 SUBJECTIVE: Ms. Coombs is doing well, no current complaints. She states she had a fairly good night. No significant increase in shortness of breath noted. Her hemoglobin remains low at 7.5. She continues to be on Lovenox and aspirin. OBJECTIVE: VITAL SIGNS: Blood pressure 174/74, pulse 85, temperature 99.4. LUNGS: Mild wheezing and rhonchi bilaterally. HEART: Regular rate and rhythm. ABDOMEN: Soft, nontender, nondistended. EXTREMITIES: No edema. PERTINENT LABORATORY DATA: Hemoglobin 7.5. Creatinine 0.66. IMPRESSION: 1. Type 2 myocardial infarction secondary to demand ischemia. 2. Likely underlying coronary heart disease. 3. Dementia. 4. Anemia. RECOMMENDATIONS: Ms. Coombs's elevated troponin is likely multifactorial. Based on her labs, it is unknown how acute her increase in troponin was on admission. Her CK-MB was within normal limits. This may have been residual from her previous admission. Based on no current symptoms in addition to anemia, normal LVEF, and normal CK-MB, we would recommend stopping Lovenox. Continue with conservative therapy. The patient will need placement. I do feel uncomfortable proceeding with angio given her hemoglobin. Also unlikely to be beneficial to proceed with a noninvasive stress study based on her anemia. The patient has also wished for conservative therapy. Otherwise, I have no further recommendations. Please re-consult if needed. Job ID: [id number]
[2018-10-25] MEDS: Atorvastatin Calcium 40 MG TAB PO SCH (21:22)
[2018-10-25] MEDS: Insulin Glargine 5 UNITS in Pre-Filled Syringe 1 EACH SC SCH (21:24)
[2018-10-25] MEDS: Melatonin 3 MG TAB PO PRN (21:34)
[2018-10-26] MEDS: Metoprolol Tartrate 5 MG/5 ML VIAL ONE ×2 (01:56→09:35)
[2018-10-26] MEDS ORDERED: Metoprolol Tartrate 5 MG/5 ML VIAL IVP SCH ×3 (02:30→10:30)
[2018-10-26 06:04] LABS: Band 2 % (5-11); Eosinophils 7 % (0-10); Hemoglobin 7.3 g/dL (12.0-16.0); Lymphocytes 12 % (21-51); MDiff Complete? YES; Mean Corpuscular HGB CONC 32.8 g/dL (32.0-36.0); Mean Corpuscular Hemoglobin 31.4 pg (27.0-31.0); Mean Corpuscular Volume 95.7 fL (78.0-98.0); Mean Platelet Volume 7.2 fL (7.4-10.4); Monocytes 12 % (0-10); Neutrophil 67 % (42-75); Platelet Count 240 thou/uL (130-400); RBC Distribution Width 13.6 % (11.5-14.5); Red Blood Cell (RBC) Count 2.31 mill/uL (4.20-5.40); White Blood Cell (WBC) Count 4.9 thou/uL (4.8-10.8)
[2018-10-26] MEDS: Levothyroxine Sodium 125 MCG TAB PO SCH (06:21)
--- NOTE | 2018-10-26 08:21 | RAD ---
EXAM: CHEST ONE VIEW HISTORY: On ventilator. Follow-up evaluation. COMPARISON: 10/25/2018 FINDINGS: Cardiac silhouette is at the upper limits of normal in size but magnified by projection. Pulmonary va sculature is within normal limits. There are small bilateral pleural effusions larger in size on the left with associated atelectasis at the left lung base. Vascular calcifications are seen in the t horacic aorta. Degenerative changes are noted in the spine. IMPRESSION: Bilateral pleural effusions, larger in size on the left.
[2018-10-26] MEDS: Anastrozole 1 MG TAB PO SCH (09:15)
[2018-10-26] MEDS: Aspirin 81 mg Enteric Coated Tablet PO SCH (09:16)
[2018-10-26] MEDS: Lisinopril 20 MG TAB PO SCH (09:16)
[2018-10-26] MEDS: hydrALAZINE 25 MG TAB PO SCH ×3 (09:17→20:49)
[2018-10-26] MEDS: levETIRAcetam 500 MG TAB PO SCH ×2 (09:17→20:49)
[2018-10-26] MEDS: Carvedilol 6.25 MG TAB PO SCH ×2 (09:17→20:49)
[2018-10-26] MEDS: Potassium Chloride 10 MEQ TAB PO SCH ×2 (09:18→16:01)
[2018-10-26] MEDS: AcetaZOLAMIDE 250 MG TAB PO SCH (09:18)
[2018-10-26] MEDS ORDERED: Metoprolol Tartrate 5 MG/5 ML VIAL ONE (09:28)
[2018-10-26] MEDS ORDERED: Insulin Glargine 15 UNITS in Pre-Filled Syringe 1 EACH SC SCH (10:00)
[2018-10-26] MEDS ORDERED: Digoxin 0.5 MG/2 ML AMP SLOW IVP SCH ×2 (10:30→12:30)
--- NOTE | 2018-10-26 10:30 | PRG ---
DATE OF SERVICE: 10/26/2018 SUBJECTIVE: This morning, she says she is weak, though she says she is somewhat less short of breath. X-ray still shows persistent left-sided pleural effusion greater than the right side. OBJECTIVE: VITAL SIGNS: Blood pressure is elevated at 182/87, pulse 79, saturations 97% on 2 L, respirations 18. CHEST: Decreased breath sounds. No wheezing. CARDIAC: Normal S1 and S2. No gallops. ABDOMEN: No masses. LABORATORY DATA: Hemoglobin and hematocrit are 7 and 22. IMPRESSION: Respiratory failure, diastolic dysfunction, bilateral pleural effusion, anemia, severe deconditioning, chronic obstructive pulmonary disease, demented. PLAN: Plan at this stage is ongoing aggressive PT supportive care. Job ID: [id number]
[2018-10-26 10:54] LABS: Anion Gap 12 mmol/L (10-20); BUN (Urea Nitrogen) 18 mg/dL (9.8-20.1); Calc. Creatinine Clearance 75 mL/min (70-130); Carbon Dioxide 30 mmol/L (23-31); Chloride 97 mmol/L (98-107); Estimated GFR-MDRD 84; Glucose 223 mg/dL (83-110); Magnesium 1.6 mg/dL (1.6-2.6); Potassium 3.7 mmol/L (3.5-5.1); Sodium 135 mmol/L (136-145)
[2018-10-26] MEDS ORDERED: Potassium Chloride 20 MEQ TAB PO SCH (12:15)
[2018-10-26] MEDS ORDERED: Magnesium 2 GM/50 ML 2 GM in Premix Bag 1 BAG IVPB SCH (12:15)
--- NOTE | 2018-10-26 12:17 | PDOC.HOSPP ---
- Subjective Encounter Date: 10/26/18 Encounter Time: 10:15 Subjective: 83 y/o female with multiple co morbidities including CAD, PVD, COPD, recently discharged from following treatment for acute respiratory failure due to atelecatasis./pneumonia after chest trauma following a fall, now readmitted with acute chest pain associated with SOB. Found to have acute NSTEMI. Patient and family elected medical mgt. Chest pain and SOB have subsided but patient developed paroxysmal A fib with RVR since last night associated with SOB. - Objective Vital Signs & Weight: Vital Signs (12 hours) Temp Pulse Resp BP BP Pulse Ox 10/26/18 10:45 140 H 10/26/18 09:17 79 182/87 H 10/26/18 09:16 182/87 H 10/26/18 06:39 79 16 97 10/26/18 03:45 97.7 F 84 17 140/60 96 10/26/18 02:00 98 124/59 L 10/26/18 01:57 99 140/63 10/26/18 01:53 147 H 119/70 10/26/18 00:30 76 20 97 Weight Weight 160 lb 14.999 oz Most Recent Monitor Data Heart Rate from ECG 90 NIBP 144/85 NIBP BP-Mean 104 Respiration from ECG 24 SpO2 96 I&O: 10/25/18 10/26/18 10/27/18 06:59 06:59 06:59 Intake Total 990 200 Output Total 1130 1200 Balance -140 -1000 Result Diagrams: 10/26/18 05:00 10/26/18 10:24 Additional Labs: Accuchecks 10/26/18 10/25/18 10/25/18 10:58 20:21 17:13 POC Glucose 259 H 240 H 262 H ROS - Medication Medications: Active Medications Generic Name Dose Route Start Last Admin Trade Name Freq PRN Reason Stop Dose Admin Acetazolamide 250 mg 10/25/18 09:00 10/26/18 09:18 Diamox PO 10/28/18 09:01 250 mg DAILY MATTHEW Administration Albuterol/Ipratropium 3 ml 10/23/18 13:00 10/26/18 06:39 Duoneb NEB 3 ml [id number] MATTHEW Administration Anastrozole 1 mg 10/25/18 09:00 10/26/18 09:15 Arimidex PO 1 mg DAILY MATTHEW Administration Aspirin 81 mg 10/25/18 09:00 10/26/18 09:16 Ecotrin PO 81 mg DAILY MATTHEW Administration Atorvastatin Calcium 80 mg 10/23/18 21:00 10/25/18 21:22 Lipitor PO 80 mg HS MATTHEW Administration Carvedilol 12.5 mg 10/23/18 09:00 10/26/18 09:17 Coreg PO 12.5 mg BID MATTHEW Administration Hydralazine HCl 50 mg 10/25/18 15:00 10/26/18 09:17 Apresoline PO 50 mg TID MATTHEW Administration Insulin Human Lispro 0 units 10/23/18 09:02 10/25/18 18:14 Humalog SC 4 unit .MILD SLIDING SCALE PRN Administration Mild Correctional Scale Isosorbide Mononitrate 60 mg 10/25/18 09:00 10/26/18 09:16 Imdur PO 60 mg DAILY MATTHEW Administration Levetiracetam 1,000 mg 10/23/18 09:00 10/26/18 09:17 Keppra PO 1,000 mg BID MATTHEW Administration Levothyroxine Sodium 125 mcg 10/24/18 06:00 10/26/18 06:21 Synthroid PO 125 mcg 0600 MATTHEW Administration Lisinopril 40 mg 10/23/18 09:00 10/26/18 09:16 Zestril PO 40 mg DAILY MATTHEW Administration Melatonin 4.5 mg 10/23/18 12:15 10/25/18 21:34 Melatonin PO 4.5 mg HSPRN PRN Administration Insomnia Potassium Chloride 10 meq 10/23/18 17:00 10/26/18 09:18 Klor-Con 10 PO 10 meq BID-WM MATTHEW Administration Sodium Chloride 10 ml 10/23/18 21:00 10/26/18 09:18 Flush - Normal Saline IVF 10 ml Q12HR MATTHEW Administration - Exam awake alert Eye: anicteric sclera ENT: normocephalic atraumatic Neck: supple Heart: irregular Heart - other findings: tachycardic Respiratory: no wheezes, no ronchi Respiratory - other findings: Fair air entry with transmitted soun. Work of breathing is increased Gastrointestinal: soft, non-tender, non-distended, normal bowel sounds Extremities: no cyanosis, no edema Skin - other findings: Scattered ecchymosis and bruise noted. right forearm hematoma noted Neurological: CN's grossly intact, no focal deficits Hosp A/P (1) Acute non-ST elevation myocardial infarction (NSTEMI) Code(s): I21.4 - NON-ST ELEVATION (NSTEMI) MYOCARDIAL INFARCTION Status: Acute (2) Anemia, normocytic normochromic Code(s): D64.9 - ANEMIA, UNSPECIFIED Status: Acute (3) Carotid atherosclerosis Code(s): I65.29 - OCCLUSION AND STENOSIS OF UNSPECIFIED CAROTID ARTERY Status : Acute (4) Diabetes mellitus Code(s): E11.9 - TYPE 2 DIABETES MELLITUS WITHOUT COMPLICATIONS Status: Acute (5) Physical deconditioning Code(s): R53.81 - OTHER MALAISE Status: Acute (6) DM2 (diabetes mellitus, type 2) Status: Chronic (7) HLD (hyperlipidemia) Code(s): E78.5 - HYPERLIPIDEMIA, UNSPECIFIED Status: Chronic (8) HTN (hypertension) Code(s): I10 - ESSENTIAL (PRIMARY) HYPERTENSION Status: Chronic (9) Hypothyroidism Code(s): E03.9 - HYPOTHYROIDISM, UNSPECIFIED Status: Chronic (10) Paroxysmal atrial fibrillation with RVR Code(s): I48.0 - PAROXYSMAL ATRIAL FIBRILLATION Status: Acute - Plan Give lopresor IV x 1. Contacted cardiology. will do digoxin as per cardiology Transfuse 1 PRBC in view of acute NSTEMI and Hb of 7.3 Replete serum potassium and magnesium to get them above 4 and 2 respectively. Continue other treatments.
[2018-10-26] MEDS: HumaLOG 300 UNITS/3 ML VIAL SC PRN (13:07)
[2018-10-26] MEDS ORDERED: Digoxin 0.25 MG TAB PO SCH (13:30)
[2018-10-26] MEDS: Atorvastatin Calcium 40 MG TAB PO SCH (20:49)
[2018-10-26] MEDS: Melatonin 3 MG TAB PO PRN (20:50)
[2018-10-26] MEDS: Insulin Glargine 20 UNITS in Pre-Filled Syringe 1 EACH SC SCH ×2 (20:51→20:54)
[2018-10-27 04:53] LABS: Anion Gap 8 mmol/L (10-20); BUN (Urea Nitrogen) 17 mg/dL (9.8-20.1); Calc. Creatinine Clearance 77 mL/min (70-130); Calcium 8.9 mg/dL (7.8-10.44); Carbon Dioxide 31 mmol/L (23-31); Chloride 102 mmol/L (98-107); Estimated GFR-MDRD 87; Glucose 131 mg/dL (83-110); Potassium 3.5 mmol/L (3.5-5.1); Sodium 137 mmol/L (136-145)
[2018-10-27 05:14] LABS: Band 9 % (5-11); Eosinophils 2 % (0-10); Hemoglobin 8.6 g/dL (12.0-16.0); Lymphocytes 9 % (21-51); MDiff Complete? YES; Mean Corpuscular HGB CONC 33.5 g/dL (32.0-36.0); Mean Corpuscular Hemoglobin 31.2 pg (27.0-31.0); Mean Corpuscular Volume 93.2 fL (78.0-98.0); Mean Platelet Volume 7.3 fL (7.4-10.4); Monocytes 8 % (0-10); Neutrophil 72 % (42-75); Platelet Count 238 thou/uL (130-400); RBC Distribution Width 13.7 % (11.5-14.5); Red Blood Cell (RBC) Count 2.75 mill/uL (4.20-5.40); White Blood Cell (WBC) Count 5.2 thou/uL (4.8-10.8)
[2018-10-27] MEDS: Levothyroxine Sodium 125 MCG TAB PO SCH (06:31)
--- NOTE | 2018-10-27 08:09 | RAD ---
XR Chest 1 View Portable History: Congestive heart failure Comparison: Radiograph prior day Findings: Large left and moderate right layering pleural effusion. Mild parenchymal edema. Heart size is enlarged. No pneumothorax. No acute osseous abnormality. Moderate vascular calcifications. Impression: Similar examination of the chest.
[2018-10-27] MEDS ORDERED: Potassium Chloride 20 MEQ TAB PO SCH (08:15)
--- NOTE | 2018-10-27 09:13 | PRG ---
DATE OF SERVICE: 10/27/2018 SUBJECTIVE: Payal Coombs remains encephalopathic, weak, still short of breath. OBJECTIVE: VITAL SIGNS: Saturations are 97% on 2 L, temperature 97, pulse 75, blood pressure 168/78. CHEST: Decreased breath sounds. No wheezing. CARDIAC: Normal S1 and S2. No gallops. ABDOMEN: No masses. LABORATORY DATA: Bicarb is decreased to 31. DIAGNOSTIC STUDIES: Most recent chest x-ray shows still evidence of small pleural effusion, left greater than right. IMPRESSION: Diastolic dysfunction, left pleural effusion, advanced age, do not resuscitate, and anemia, stable. PLAN: She can be discharged to the rehab any time. Job ID: [id number]
--- NOTE | 2018-10-27 10:01 | PDOC.HOSPP ---
- Subjective Encounter Date: 10/27/18 Encounter Time: 09:59 Subjective: 83 y/o female with multiple co morbidities including CAD, PVD, COPD, recently discharged from following treatment for acute respiratory failure due to atelecatasis./pneumonia after chest trauma following a fall, now readmitted with acute chest pain associated with SOB. Found to have acute NSTEMI. Patient and family elected medical mgt. Chest pain and SOB have subsided but patient later developed paroxysmal A fib with RVR associated with SOB which was treated with digoxin with adequate rate control. She also was transfused 1 unit of PRBC for acute on chronic anemia in the face of NSTEMI. Feeling better today. - Objective Vital Signs & Weight: Vital Signs (12 hours) Temp Pulse Resp BP Pulse Ox 10/27/18 07:57 97.9 F 75 18 165/78 H 95 10/27/18 06:53 72 20 98 10/27/18 04:30 98.6 F 72 24 H 110/56 L 97 Weight Weight 160 lb 14.999 oz Most Recent Monitor Data Heart Rate from ECG 90 NIBP 144/85 NIBP BP-Mean 104 Respiration from ECG 24 SpO2 96 I&O: 10/26/18 10/27/18 10/28/18 06:59 06:59 06:59 Intake Total 200 750 Output Total 1200 450 Balance -1000 300 Result Diagrams: 10/27/18 03:58 10/27/18 03:58 Additional Labs: Accuchecks 10/27/18 10/26/18 10/26/18 05:20 16:43 10:58 POC Glucose 126 H 174 H 259 H ROS - Medication Medications: Active Medications Generic Name Dose Route Start Last Admin Trade Name Freq PRN Reason Stop Dose Admin Acetazolamide 250 mg 10/25/18 09:00 10/26/18 09:18 Diamox PO 10/28/18 09:01 250 mg DAILY MATTHEW Administration Albuterol/Ipratropium 3 ml 10/23/18 13:00 10/27/18 06:53 Duoneb NEB 3 ml [id number] MATTHEW Administration Anastrozole 1 mg 10/25/18 09:00 10/26/18 09:15 Arimidex PO 1 mg DAILY MATTHEW Administration Aspirin 81 mg 10/25/18 09:00 10/26/18 09:16 Ecotrin PO 81 mg DAILY MATTHEW Administration Atorvastatin Calcium 80 mg 10/23/18 21:00 10/26/18 20:49 Lipitor PO 80 mg HS MATTHEW Administration Carvedilol 12.5 mg 10/23/18 09:00 10/26/18 20:49 Coreg PO 12.5 mg BID MATTHEW Administration Hydralazine HCl 50 mg 10/25/18 15:00 10/26/18 20:49 Apresoline PO 50 mg TID MATTHEW Administration Insulin Glargine 20 units/ 0.2 mls @ 0.2 mls/hr 10/26/18 21:00 10/26/18 20:54 Miscellaneous Medication SC 0.2 mls HS MATTHEW Administration Insulin Human Lispro 0 units 10/23/18 09:02 10/26/18 13:07 Humalog SC 4 unit .MILD SLIDING SCALE PRN Administration Mild Correctional Scale Isosorbide Mononitrate 60 mg 10/25/18 09:00 10/26/18 09:16 Imdur PO 60 mg DAILY MATTHEW Administration Levetiracetam 1,000 mg 10/23/18 09:00 10/26/18 20:49 Keppra PO 1,000 mg BID MATTHEW Administration Levothyroxine Sodium 125 mcg 10/24/18 06:00 10/27/18 06:31 Synthroid PO 125 mcg 0600 MATTHEW Administration Lisinopril 40 mg 10/23/18 09:00 10/26/18 09:16 Zestril PO 40 mg DAILY MATTHEW Administration Melatonin 4.5 mg 10/23/18 12:15 10/26/18 20:50 Melatonin PO 4.5 mg HSPRN PRN Administration Insomnia Potassium Chloride 10 meq 10/23/18 17:00 10/26/18 16:01 Klor-Con 10 PO 10 meq BID-WM MATTHEW Administration Sodium Chloride 10 ml 10/23/18 21:00 10/26/18 20:52 Flush - Normal Saline IVF 10 ml Q12HR MATTHEW Administration - Exam awake alert Eye: anicteric sclera ENT: normocephalic atraumatic Neck: supple, no JVD Heart: irregular Respiratory: no ronchi Respiratory - other findings: Fair air entry bilaterally with some trans , decreased at the bases though Gastrointestinal: soft, non-tender, non-distended, normal bowel sounds Extremities: no cyanosis, no edema Neurological: CN's grossly intact, no focal deficits Psychiatric: normal affect, A&O x 3 Hosp A/P (1) Type 2 AMI (acute myocardial infarction) Code(s): I21.A1 - MYOCARDIAL INFARCTION TYPE 2 Status: Acute (2) Paroxysmal atrial fibrillation with RVR Code(s): I48.0 - PAROXYSMAL ATRIAL FIBRILLATION Status: Acute (3) Anemia, normocytic normochromic Code(s): D64.9 - ANEMIA, UNSPECIFIED Status: Acute (4) Carotid atherosclerosis Code(s): I65.29 - OCCLUSION AND STENOSIS OF UNSPECIFIED CAROTID ARTERY Status : Acute (5) Diabetes mellitus Code(s): E11.9 - TYPE 2 DIABETES MELLITUS WITHOUT COMPLICATIONS Status: Acute (6) Physical deconditioning Code(s): R53.81 - OTHER MALAISE Status: Acute (7) DM2 (diabetes mellitus, type 2) Status: Chronic (8) HLD (hyperlipidemia) Code(s): E78.5 - HYPERLIPIDEMIA, UNSPECIFIED Status: Chronic (9) HTN (hypertension) Code(s): I10 - ESSENTIAL (PRIMARY) HYPERTENSION Status: Chronic (10) Hypothyroidism Code(s): E03.9 - HYPOTHYROIDISM, UNSPECIFIED Status: Chronic - Plan Supplement serum potassium to get it above 4. Start digoxin 0.125 daily Get dig level tomorrow morning. No anticoagulation due to acute anemia and increased fall risk. increase activity Continue other treatments.
[2018-10-27] MEDS: levETIRAcetam 500 MG TAB PO SCH ×2 (10:02→20:22)
[2018-10-27] MEDS: AcetaZOLAMIDE 250 MG TAB PO SCH (10:02)
[2018-10-27] MEDS: Carvedilol 6.25 MG TAB PO SCH ×2 (10:02→20:22)
[2018-10-27] MEDS: Aspirin 81 mg Enteric Coated Tablet PO SCH (10:03)
[2018-10-27] MEDS: hydrALAZINE 25 MG TAB PO SCH ×3 (10:03→20:21)
[2018-10-27] MEDS: Lisinopril 20 MG TAB PO SCH (10:04)
[2018-10-27] MEDS: Anastrozole 1 MG TAB PO SCH (10:05)
[2018-10-27] MEDS: Potassium Chloride 10 MEQ TAB PO SCH ×2 (10:07→17:25)
[2018-10-27] MEDS ORDERED: hydrALAZINE 25 MG TAB PO SCH ×2 (10:10→10:15)
[2018-10-27] MEDS: HumaLOG 300 UNITS/3 ML VIAL SC PRN (18:45)
[2018-10-27] MEDS: Atorvastatin Calcium 40 MG TAB PO SCH (20:22)
[2018-10-27] MEDS: Insulin Glargine 20 UNITS in Pre-Filled Syringe 1 EACH SC SCH (21:21)
[2018-10-28] MEDS: Melatonin 3 MG TAB PO PRN ×2 (02:16→20:25)
[2018-10-28 05:52] LABS: Band 5 % (5-11); Eosinophils 3 % (0-10); Hemoglobin 8.5 g/dL (12.0-16.0); Hypochromia SLIGHT = 6-15 cells (100X) (0-5/hpf); Lymphocytes 14 % (21-51); MDiff Complete? YES; Mean Corpuscular HGB CONC 31.7 g/dL (32.0-36.0); Mean Corpuscular Hemoglobin 30.3 pg (27.0-31.0); Mean Corpuscular Volume 95.6 fL (78.0-98.0); Mean Platelet Volume 7.1 fL (7.4-10.4); Monocytes 8 % (0-10); Neutrophil 70 % (42-75); Platelet Count 235 thou/uL (130-400); Platelet Morphology Comment Appears Adequate; RBC Distribution Width 13.9 % (11.5-14.5); White Blood Cell (WBC) Count 5.1 thou/uL (4.8-10.8)
[2018-10-28 06:01] LABS: Digoxin 0.92 ng/mL (0.8-2.0)
[2018-10-28 06:02] LABS: Anion Gap 8 mmol/L (10-20); BUN (Urea Nitrogen) 16 mg/dL (9.8-20.1); Calc. Creatinine Clearance 75 mL/min (70-130); Carbon Dioxide 31 mmol/L (23-31); Chloride 103 mmol/L (98-107); Estimated GFR-MDRD 84; Glucose 123 mg/dL (83-110); Magnesium 1.8 mg/dL (1.6-2.6); Potassium 3.7 mmol/L (3.5-5.1); Sodium 138 mmol/L (136-145)
[2018-10-28] MEDS: Levothyroxine Sodium 125 MCG TAB PO SCH (06:03)
--- NOTE | 2018-10-28 06:11 | PRG ---
DATE OF SERVICE: 10/28/2018 SUBJECTIVE: This morning, she is awake, alert, responsive, less short of breath, is still weak. In the process of trying to get her to the rehab. OBJECTIVE: VITAL SIGNS: Temperature 97, pulse 74, respirations 20, sats are 97% on 2 L, blood pressure 128/58. CHEST: No wheezing or crackles. CARDIAC: Normal S1 and S2. No gallops. IMPRESSION: Bilateral pleural effusions, diastolic dysfunction, chronic obstructive pulmonary disease, severe deconditioning. DISPOSITION: Continue present treatment, PT, supportive care, placement. Job ID: [id number]
[2018-10-28] MEDS ORDERED: Digoxin 0.25 MG TAB PO SCH (09:00)
--- NOTE | 2018-10-28 09:14 | RAD ---
CHEST 1 VIEW: Date: 10/28/18 HISTORY: Dyspnea. Follow-up. COMPARISON: 10/27/18. FINDINGS: Cardiac silhouette is magnified by projection. Pulmonary vasculature is slightly more engorged and ac centuated by shallow inspiration. Hazy opacity at each base consistent with pleural fluid is again de monstrated, increasing slightly on the right. Mediastinum is midline with aortic calcification. No ev idence of pneumothorax. IMPRESSION: Slight interval increase in radiographic degree of pulmonary vascular congestion and right pleural fl uid. Left pleural fluid appears stable. POS: GARRETT
[2018-10-28] MEDS: Carvedilol 6.25 MG TAB PO SCH ×2 (10:10→20:26)
[2018-10-28] MEDS: hydrALAZINE 25 MG TAB PO SCH ×3 (10:11→20:26)
[2018-10-28] MEDS: Aspirin 81 mg Enteric Coated Tablet PO SCH (10:11)
[2018-10-28] MEDS: Digoxin 0.25 MG TAB PO SCH (10:12)
[2018-10-28] MEDS: Lisinopril 20 MG TAB PO SCH (10:12)
[2018-10-28] MEDS: levETIRAcetam 500 MG TAB PO SCH ×2 (10:12→20:26)
[2018-10-28] MEDS: AcetaZOLAMIDE 250 MG TAB PO SCH (10:13)
[2018-10-28] MEDS: Potassium Chloride 10 MEQ TAB PO SCH ×2 (10:13→16:35)
[2018-10-28] MEDS: Anastrozole 1 MG TAB PO SCH (10:14)
--- NOTE | 2018-10-28 10:57 | PDOC.HOSPP ---
- Subjective Encounter Date: 10/28/18 Encounter Time: 08:55 Subjective: 83 y/o female with multiple co morbidities including CAD, PVD, COPD, recently discharged from following treatment for acute respiratory failure due to atelecatasis./pneumonia after chest trauma following a fall, now readmitted with acute chest pain associated with SOB. Found to have acute NSTEMI. Patient and family elected medical mgt. Chest pain and SOB have subsided but patient later developed paroxysmal A fib with RVR associated with SOB which was treated with digoxin with adequate rate control. She also was transfused 1 unit of PRBC for acute on chronic anemia in the face of NSTEMI. No new problem today. Feeling better. - Objective Vital Signs & Weight: Vital Signs (12 hours) Temp Pulse Resp BP BP Pulse Ox 10/28/18 10:12 79 165/74 H 10/28/18 10:11 79 165/77 H 10/28/18 10:10 165/74 H 10/28/18 07:56 96.9 F L 79 16 165/74 H 99 10/28/18 06:58 98 10/28/18 06:56 79 20 10/28/18 03:43 97.1 F L 74 20 126/58 L 97 Weight Weight 160 lb 14.999 oz Most Recent Monitor Data Heart Rate from ECG 90 NIBP 144/85 NIBP BP-Mean 104 Respiration from ECG 24 SpO2 96 I&O: 10/27/18 10/28/18 10/29/18 06:59 06:59 06:59 Intake Total 750 1010 Output Total 450 975 Balance 300 35 Result Diagrams: 10/28/18 04:53 10/28/18 04:53 Additional Labs: Accuchecks 10/28/18 10/27/18 10/27/18 05:37 20:45 16:32 POC Glucose 134 H 245 H 212 H 10/27/18 11:16 POC Glucose 140 H ROS - Medication Medications: Active Medications Generic Name Dose Route Start Last Admin Trade Name Freq PRN Reason Stop Dose Admin Albuterol/Ipratropium 3 ml 10/23/18 13:00 10/28/18 06:56 Duoneb NEB 3 ml [id number] MATTHEW Administration Anastrozole 1 mg 10/25/18 09:00 10/28/18 10:14 Arimidex PO 1 mg DAILY MATTHEW Administration Aspirin 81 mg 10/25/18 09:00 10/28/18 10:11 Ecotrin PO 81 mg DAILY MATTHEW Administration Atorvastatin Calcium 80 mg 10/23/18 21:00 10/27/18 20:22 Lipitor PO 80 mg HS MATTHEW Administration Carvedilol 12.5 mg 10/23/18 09:00 10/28/18 10:10 Coreg PO 12.5 mg BID MATTHEW Administration Digoxin 0.125 mg 10/28/18 09:00 10/28/18 10:12 Lanoxin PO 0.125 mg DAILY MATTHEW Administration Hydralazine HCl 100 mg 10/27/18 15:00 10/28/18 10:11 Apresoline PO 100 mg TID MATTHEW Administration Insulin Glargine 20 units/ 0.2 mls @ 0.2 mls/hr 10/26/18 21:00 10/27/18 21:21 Miscellaneous Medication SC 0.2 mls HS MATTHEW Administration Insulin Human Lispro 0 units 10/23/18 09:02 10/27/18 18:45 Humalog SC 3 unit .MILD SLIDING SCALE PRN Administration Mild Correctional Scale Isosorbide Mononitrate 60 mg 10/25/18 09:00 10/28/18 10:13 Imdur PO 60 mg DAILY MATTHEW Administration Levetiracetam 1,000 mg 10/23/18 09:00 10/28/18 10:12 Keppra PO 1,000 mg BID MATTHEW Administration Levothyroxine Sodium 125 mcg 10/24/18 06:00 10/28/18 06:03 Synthroid PO 125 mcg 0600 MATTHEW Administration Lisinopril 40 mg 10/23/18 09:00 10/28/18 10:12 Zestril PO 40 mg DAILY MATTHEW Administration Melatonin 4.5 mg 10/23/18 12:15 10/28/18 02:16 Melatonin PO 4.5 mg HSPRN PRN Administration Insomnia Potassium Chloride 10 meq 10/23/18 17:00 10/28/18 10:13 Klor-Con 10 PO 10 meq BID-WM MATTHEW Administration Sodium Chloride 10 ml 10/23/18 21:00 10/28/18 10:18 Flush - Normal Saline IVF 10 ml Q12HR MATTHEW Administration - Exam awake alert Eye: anicteric sclera ENT: normocephalic atraumatic Neck: supple Heart: RRR Respiratory: no rales Respiratory - other findings: Fair air entry bilaterally with few scattered rhonchi Gastrointestinal: soft, non-tender, non-distended, normal bowel sounds Extremities: no cyanosis, no edema Neurological: CN's grossly intact Psychiatric: A&O x 3 Hosp A/P (1) Type 2 AMI (acute myocardial infarction) Code(s): I21.A1 - MYOCARDIAL INFARCTION TYPE 2 Status: Acute (2) Paroxysmal atrial fibrillation with RVR Code(s): I48.0 - PAROXYSMAL ATRIAL FIBRILLATION Status: Acute (3) Anemia, normocytic normochromic Code(s): D64.9 - ANEMIA, UNSPECIFIED Status: Acute (4) Carotid atherosclerosis Code(s): I65.29 - OCCLUSION AND STENOSIS OF UNSPECIFIED CAROTID ARTERY Status : Acute (5) Diabetes mellitus Code(s): E11.9 - TYPE 2 DIABETES MELLITUS WITHOUT COMPLICATIONS Status: Acute (6) Physical deconditioning Code(s): R53.81 - OTHER MALAISE Status: Acute (7) DM2 (diabetes mellitus, type 2) Status: Chronic (8) HLD (hyperlipidemia) Code(s): E78.5 - HYPERLIPIDEMIA, UNSPECIFIED Status: Chronic (9) HTN (hypertension) Code(s): I10 - ESSENTIAL (PRIMARY) HYPERTENSION Status: Chronic (10) Hypothyroidism Code(s): E03.9 - HYPOTHYROIDISM, UNSPECIFIED Status: Chronic - Plan Continue current treatments. Increase hydralazine to home dose of 100 mg tid to get adequate BP control No anticoagulation due to acute anemia and increased fall risk. increase activity Family meeting schedule for 4 pm to discuss care plan and progrosis with patient and relatives
[2018-10-28] MEDS ORDERED: Furosemide 20 MG/2 ML VIAL SLOW IVP SCH (11:30)
[2018-10-28] MEDS: HumaLOG 300 UNITS/3 ML VIAL SC PRN ×2 (12:56→20:32)
[2018-10-28] MEDS: Mometasone/Formoterol 120 PUFF INHALER INH SCH (18:52)
[2018-10-28] MEDS: Magnesium Oxide 400 MG TAB PO SCH (20:27)
[2018-10-28] MEDS: Atorvastatin Calcium 40 MG TAB PO SCH (20:27)
[2018-10-28] MEDS: Insulin Glargine 20 UNITS in Pre-Filled Syringe 1 EACH SC SCH (20:30)
[2018-10-29] MEDS: Zolpidem Tartrate 5 MG TAB PO PRN ×2 (01:22→20:11)
[2018-10-29] MEDS: Levothyroxine Sodium 125 MCG TAB PO SCH (05:41)
[2018-10-29 06:13] LABS: Eosinophils 1 % (0-10); Hemoglobin 9.2 g/dL (12.0-16.0); Lymphocytes 11 % (21-51); MDiff Complete? YES; Mean Corpuscular HGB CONC 32.4 g/dL (32.0-36.0); Mean Corpuscular Hemoglobin 30.8 pg (27.0-31.0); Mean Corpuscular Volume 95.1 fL (78.0-98.0); Mean Platelet Volume 6.9 fL (7.4-10.4); Monocytes 9 % (0-10); Neutrophil 78 % (42-75); Platelet Count 215 thou/uL (130-400); Platelet Morphology Comment Appears Adequate; RBC Distribution Width 14.4 % (11.5-14.5); RBC Morphology Normal; Red Blood Cell (RBC) Count 2.99 mill/uL (4.20-5.40); White Blood Cell (WBC) Count 4.8 thou/uL (4.8-10.8)
[2018-10-29 06:19] LABS: Anion Gap 9 mmol/L (10-20); BUN (Urea Nitrogen) 18 mg/dL (9.8-20.1); Calc. Creatinine Clearance 104 mL/min (70-130); Calcium 8.9 mg/dL (7.8-10.44); Carbon Dioxide 29 mmol/L (23-31); Chloride 104 mmol/L (98-107); Estimated GFR-MDRD Greater than 90; Glucose 123 mg/dL (83-110); Potassium 3.4 mmol/L (3.5-5.1); Sodium 139 mmol/L (136-145)
[2018-10-29] MEDS: Mometasone/Formoterol 120 PUFF INHALER INH SCH ×2 (07:39→18:51)
[2018-10-29] MEDS ORDERED: Potassium Chloride 20 MEQ TAB PO SCH (08:00)
[2018-10-29] MEDS: hydrALAZINE 25 MG TAB PO SCH ×3 (08:28→20:09)
[2018-10-29] MEDS: Aspirin 81 mg Enteric Coated Tablet PO SCH (08:29)
[2018-10-29] MEDS: Lisinopril 20 MG TAB PO SCH (08:29)
[2018-10-29] MEDS: levETIRAcetam 500 MG TAB PO SCH ×2 (08:29→20:10)
[2018-10-29] MEDS: Carvedilol 6.25 MG TAB PO SCH ×2 (08:30→20:10)
[2018-10-29] MEDS: Anastrozole 1 MG TAB PO SCH (08:30)
[2018-10-29] MEDS: Furosemide 20 MG TAB PO SCH (08:30)
[2018-10-29] MEDS: Digoxin 0.25 MG TAB PO SCH (08:30)
[2018-10-29] MEDS: Potassium Chloride 10 MEQ TAB PO SCH ×2 (08:31→16:45)
[2018-10-29] MEDS: Magnesium Oxide 400 MG TAB PO SCH ×2 (08:31→20:11)
--- NOTE | 2018-10-29 11:35 | PRG ---
DATE OF SERVICE: 10/29/2018 SUBJECTIVE: The patient says she is doing okay. She appeared extremely weak. OBJECTIVE: VITAL SIGNS: Temperature 97.2, pulse 82, blood pressure 180/86, and O2 saturation 98% on 2 L. HEENT: Unremarkable. NECK: No adenopathy or JVD. LUNGS: Coarse breath sounds. CARDIAC: S1 and S2, regular. ABDOMEN: Soft. EXTREMITIES: Trace edema throughout. ASSESSMENT: 1. Diastolic cardiac dysfunction. 2. Bilateral effusions. 3. Hypoxic respiratory failure. 4. Severe deconditioning. PLAN: Basically, this is a rehabilitative issue. She will continue her breathing treatments, diuretics, and other medications. From my standpoint, she is stable for transfer to the next level of care. Pulmonary will see less often. Job ID: [id number]
[2018-10-29] MEDS: HumaLOG 300 UNITS/3 ML VIAL SC PRN ×2 (13:07→21:35)
--- NOTE | 2018-10-29 17:11 | PDOC.HOSPP ---
- Subjective Encounter Date: 10/29/18 Encounter Time: 09:09 Subjective: 83 y/o female with multiple co morbidities including CAD, PVD, COPD, recently discharged from following treatment for acute respiratory failure due to atelecatasis./pneumonia after chest trauma following a fall, now readmitted with acute chest pain associated with SOB. Found to have acute NSTEMI. Patient and family elected medical mgt. Chest pain and SOB have subsided but patient later developed paroxysmal A fib with RVR associated with SOB which was treated with digoxin with adequate rate control. She also was transfused 1 unit of PRBC for acute on chronic anemia in the face of NSTEMI. Had worsening SOB and diuretic was restarted. No new problem today. Feeling better. - Objective Vital Signs & Weight: Vital Signs (12 hours) Temp Pulse Pulse Resp BP BP BP 10/29/18 16:40 76 176/79 H 10/29/18 13:35 76 20 10/29/18 12:00 97.8 F 76 20 10/29/18 11:22 86 158/70 H 148/65 H 10/29/18 08:30 82 180/86 H 10/29/18 08:29 180/86 H 10/29/18 08:28 82 180/86 H 10/29/18 08:00 10/29/18 07:54 97.7 F 82 20 10/29/18 07:39 74 20 10/29/18 07:26 10/29/18 07:24 74 20 BP BP Pulse Ox Pulse Ox 10/29/18 16:40 10/29/18 13:35 10/29/18 12:00 125/60 98 10/29/18 11:22 96 10/29/18 08:30 10/29/18 08:29 10/29/18 08:28 10/29/18 08:00 98 10/29/18 07:54 180/86 H 98 10/29/18 07:39 10/29/18 07:26 99 10/29/18 07:24 Weight Weight 198 lb Most Recent Monitor Data Heart Rate from ECG 90 NIBP 144/85 NIBP BP-Mean 104 Respiration from ECG 24 SpO2 96 I&O: 10/28/18 10/29/18 10/30/18 06:59 06:59 06:59 Intake Total 1010 1010 Output Total 975 1650 Balance 35 -640 Result Diagrams: 10/29/18 05:44 10/29/18 05:43 Additional Labs: Accuchecks 10/29/18 10/29/18 10/28/18 10:48 05:39 20:32 POC Glucose 165 H 116 H 244 H 10/26/18 10/26/18 20:26 05:40 POC Glucose 168 H 136 H ROS - Medication Medications: Active Medications Generic Name Dose Route Start Last Admin Trade Name Freq PRN Reason Stop Dose Admin Albuterol/Ipratropium 3 ml 10/23/18 13:00 10/29/18 13:35 Duoneb NEB 3 ml [id number] MATTHEW Administration Anastrozole 1 mg 10/25/18 09:00 10/29/18 08:30 Arimidex PO 1 mg DAILY MATTHEW Administration Aspirin 81 mg 10/25/18 09:00 10/29/18 08:29 Ecotrin PO 81 mg DAILY MATTHWE Administration Atorvastatin Calcium 80 mg 10/23/18 21:00 10/28/18 20:27 Lipitor PO 80 mg HS MATTHEW Administration Carvedilol 12.5 mg 10/23/18 09:00 10/29/18 08:30 Coreg PO 12.5 mg BID MATTHEW Administration Digoxin 0.125 mg 10/28/18 09:00 10/29/18 08:30 Lanoxin PO 0.125 mg DAILY MATTHEW Administration Furosemide 20 mg 10/29/18 09:00 10/29/18 08:30 Lasix PO 20 mg DAILY MATTHEW Administration Hydralazine HCl 100 mg 10/27/18 15:00 10/29/18 16:40 Apresoline PO 100 mg TID MATTHEW Administration Insulin Glargine 20 units/ 0.2 mls @ 0.2 mls/hr 10/26/18 21:00 10/28/18 20:30 Miscellaneous Medication SC 0.2 mls HS MATTHEW Administration Insulin Human Lispro 0 units 10/23/18 09:02 10/29/18 13:07 Humalog SC 2 unit .MILD SLIDING SCALE PRN Administration Mild Correctional Scale Insulin Human Lispro 0 units 10/23/18 09:02 10/28/18 20:32 Humalog SC 2 unit .BEDTIME SLIDING SC PRN Administration Bedtime Correctional Scale Isosorbide Mononitrate 60 mg 10/25/18 09:00 10/29/18 08:29 Imdur PO 60 mg DAILY MATTHEW Administration Levetiracetam 1,000 mg 10/23/18 09:00 10/29/18 08:29 Keppra PO 1,000 mg BID MATTHEW Administration Levothyroxine Sodium 125 mcg 10/24/18 06:00 10/29/18 05:41 Synthroid PO 125 mcg 0600 MATTHEW Administration Lisinopril 40 mg 10/23/18 09:00 10/29/18 08:29 Zestril PO 40 mg DAILY MATTHEW Administration Magnesium Oxide 400 mg 10/28/18 21:00 10/29/18 08:31 Magnesium Oxide PO 400 mg BID MATTHEW Administration Melatonin 4.5 mg 10/23/18 12:15 10/28/18 20:25 Melatonin PO 4.5 mg HSPRN PRN Administration Insomnia Mometasone Furoate/Formoterol Fumar 2 puff 10/28/18 18:30 10/29/18 07:39 Dulera 200 Mcg/5 Mcg Inhaler INH 2 puff BID-RT MATTHEW Administration Potassium Chloride 10 meq 10/23/18 17:00 10/29/18 16:45 Klor-Con 10 PO 10 meq BID-WM MATTHEW Administration Sodium Chloride 10 ml 10/23/18 21:00 10/29/18 08:31 Flush - Normal Saline IVF 10 ml Q12HR MATTHEW Administration Sodium Chloride 10 ml 10/26/18 11:06 10/28/18 12:10 Flush - Normal Saline IVF 10 ml PRN PRN Administration Saline Flush Zolpidem Tartrate 5 mg 10/23/18 08:58 10/29/18 01:22 Ambien PO 2.5 mg HSPRN PRN Administration Insomnia - Exam awake alert Eye: PERRL, anicteric sclera ENT: normocephalic atraumatic Neck: supple Heart: RRR Respiratory: no rales, no ronchi Respiratory - other findings: fair air entry with some transmitted sound Gastrointestinal: soft, non-tender, non-distended, normal bowel sounds Extremities: no cyanosis, no edema Neurological: CN's grossly intact, no focal deficits Psychiatric: A&O x 3 Hosp A/P (1) Type 2 AMI (acute myocardial infarction) Code(s): I21.A1 - MYOCARDIAL INFARCTION TYPE 2 Status: Acute (2) Paroxysmal atrial fibrillation with RVR Code(s): I48.0 - PAROXYSMAL ATRIAL FIBRILLATION Status: Acute (3) Anemia, normocytic normochromic Code(s): D64.9 - ANEMIA, UNSPECIFIED Status: Acute (4) Carotid atherosclerosis Code(s): I65.29 - OCCLUSION AND STENOSIS OF UNSPECIFIED CAROTID ARTERY Status : Acute (5) Diabetes mellitus Code(s): E11.9 - TYPE 2 DIABETES MELLITUS WITHOUT COMPLICATIONS Status: Acute (6) Physical deconditioning Code(s): R53.81 - OTHER MALAISE Status: Acute (7) DM2 (diabetes mellitus, type 2) Status: Chronic (8) HLD (hyperlipidemia) Code(s): E78.5 - HYPERLIPIDEMIA, UNSPECIFIED Status: Chronic (9) HTN (hypertension) Code(s): I10 - ESSENTIAL (PRIMARY) HYPERTENSION Status: Chronic (10) Hypothyroidism Code(s): E03.9 - HYPOTHYROIDISM, UNSPECIFIED Status: Chronic (11) Acute and chronic respiratory failure with hypoxia Code(s): J96.21 - ACUTE AND CHRONIC RESPIRATORY FAILURE WITH HYPOXIA Status: Acute (12) Acute on chronic diastolic heart failure Code(s): I50.33 - ACUTE ON CHRONIC DIASTOLIC (CONGESTIVE) HEART FAILURE Status : Acute (13) Gait instability Code(s): R26.81 - UNSTEADINESS ON FEET Status: Acute (14) Clostridioides difficile diarrhea Code(s): A04.72 - ENTEROCOLITIS D/T CLOSTRIDIUM DIFFICILE, NOT SPCF RECUR Status: Acute - Plan Increase isosorbide mononitrate to 120 daily to get better BP control. Start oral lasix. Start oral vancomycin. Continue other treatments. Increase activity
[2018-10-29] MEDS: Vancomycin HCl 25 MG/ML Oral PO SCH (18:11)
[2018-10-29] MEDS: Atorvastatin Calcium 40 MG TAB PO SCH (20:10)
[2018-10-29] MEDS: Melatonin 3 MG TAB PO PRN (20:10)
[2018-10-29] MEDS: Insulin Glargine 20 UNITS in Pre-Filled Syringe 1 EACH SC SCH (21:35)
[2018-10-30] MEDS: Vancomycin HCl 25 MG/ML Oral PO SCH ×5 (00:18→23:40)
[2018-10-30 05:50] LABS: Band 4 % (5-11); Eosinophils 3 % (0-10); Hemoglobin 8.4 g/dL (12.0-16.0); Lymphocytes 16 % (21-51); MDiff Complete? YES; Mean Corpuscular HGB CONC 33.1 g/dL (32.0-36.0); Mean Corpuscular Hemoglobin 31.4 pg (27.0-31.0); Monocytes 14 % (0-10); Neutrophil 62 % (42-75); Platelet Count 205 thou/uL (130-400); Platelet Morphology Comment Appears Adequate; RBC Distribution Width 14.4 % (11.5-14.5); RBC Morphology Normal; Red Blood Cell (RBC) Count 2.67 mill/uL (4.20-5.40); White Blood Cell (WBC) Count 4.2 thou/uL (4.8-10.8)
[2018-10-30 05:56] LABS: Anion Gap 12 mmol/L (10-20); BUN (Urea Nitrogen) 17 mg/dL (9.8-20.1); Calc. Creatinine Clearance 107 mL/min (70-130); Calcium 8.7 mg/dL (7.8-10.44); Carbon Dioxide 26 mmol/L (23-31); Chloride 105 mmol/L (98-107); Estimated GFR-MDRD Greater than 90; Glucose 147 mg/dL (83-110); Potassium 3.5 mmol/L (3.5-5.1); Sodium 139 mmol/L (136-145)
[2018-10-30] MEDS: Levothyroxine Sodium 125 MCG TAB PO SCH (06:23)
[2018-10-30] MEDS: Mometasone/Formoterol 120 PUFF INHALER INH SCH ×2 (07:26→19:09)
[2018-10-30] MEDS ORDERED: Loperamide HCl 2 MG CAP PO PRN (07:42)
[2018-10-30] MEDS ORDERED: Potassium Chloride 20 MEQ TAB PO SCH (07:45)
[2018-10-30] MEDS: Lisinopril 20 MG TAB PO SCH (08:46)
[2018-10-30] MEDS: Aspirin 81 mg Enteric Coated Tablet PO SCH (08:46)
[2018-10-30] MEDS: levETIRAcetam 500 MG TAB PO SCH ×2 (08:46→21:14)
[2018-10-30] MEDS: hydrALAZINE 25 MG TAB PO SCH ×3 (08:46→21:15)
[2018-10-30] MEDS: Digoxin 0.25 MG TAB PO SCH (08:47)
[2018-10-30] MEDS: Furosemide 20 MG TAB PO SCH (08:47)
[2018-10-30] MEDS: Carvedilol 6.25 MG TAB PO SCH ×2 (08:47→21:14)
[2018-10-30] MEDS: Anastrozole 1 MG TAB PO SCH (08:48)
[2018-10-30] MEDS: Magnesium Oxide 400 MG TAB PO SCH ×2 (08:48→21:15)
[2018-10-30] MEDS: HumaLOG 300 UNITS/3 ML VIAL SC PRN ×2 (12:43→17:46)
--- NOTE | 2018-10-30 13:16 | PDOC.HOSPP ---
- Subjective Encounter Date: 10/30/18 Encounter Time: 09:15 Subjective: 83 y/o female with multiple co morbidities including CAD, PVD, COPD, recently discharged from following treatment for acute respiratory failure due to atelecatasis./pneumonia after chest trauma following a fall, now readmitted with acute chest pain associated with SOB. Found to have acute NSTEMI. Patient and family elected medical mgt. Chest pain and SOB have subsided but patient later developed paroxysmal A fib with RVR associated with SOB which was treated with digoxin with adequate rate control. She also was transfused 1 unit of PRBC for acute on chronic anemia in the face of NSTEMI. Developed frequent loose stools and was found to have C dif hence now on oral vanc. No new problem today. - Objective Vital Signs & Weight: Vital Signs (12 hours) Temp Pulse Resp BP Pulse Ox 10/30/18 08:47 71 10/30/18 08:46 71 10/30/18 08:00 97.4 F L 86 18 195/87 H 96 10/30/18 07:13 71 18 97 10/30/18 03:53 76 18 134/63 94 L Weight Weight 200 lb Most Recent Monitor Data Heart Rate from ECG 90 NIBP 144/85 NIBP BP-Mean 104 Respiration from ECG 24 SpO2 96 I&O: 10/29/18 10/30/18 10/31/18 06:59 06:59 06:59 Intake Total 1010 1220 Output Total 1650 850 Balance -640 370 Result Diagrams: 10/30/18 04:52 10/30/18 04:52 Additional Labs: Accuchecks 10/30/18 10/30/18 10/29/18 11:06 05:46 20:52 POC Glucose 220 H 140 H 346 H 10/29/18 17:01 POC Glucose 204 H ROS - Medication Medications: Active Medications Generic Name Dose Route Start Last Admin Trade Name Freq PRN Reason Stop Dose Admin Acetaminophen 650 mg 10/23/18 08:58 10/30/18 08:47 Tylenol PO 650 mg Q4H PRN Administration Headache/Fever/Mild Pain (1-3) Albuterol/Ipratropium 3 ml 10/23/18 13:00 10/30/18 07:13 Duoneb NEB 3 ml [id number] MATTHEW Administration Anastrozole 1 mg 10/25/18 09:00 10/30/18 08:48 Arimidex PO 1 mg DAILY MATTHEW Administration Aspirin 81 mg 10/25/18 09:00 10/30/18 08:46 Ecotrin PO 81 mg DAILY MATTHEW Administration Atorvastatin Calcium 80 mg 10/23/18 21:00 10/29/18 20:10 Lipitor PO 80 mg HS MATTHEW Administration Carvedilol 12.5 mg 10/23/18 09:00 10/30/18 08:47 Coreg PO 12.5 mg BID MATTHEW Administration Digoxin 0.125 mg 10/28/18 09:00 10/30/18 08:47 Lanoxin PO 0.125 mg DAILY MATTHEW Administration Furosemide 20 mg 10/29/18 09:00 10/30/18 08:47 Lasix PO 20 mg DAILY MATTHEW Administration Hydralazine HCl 100 mg 10/27/18 15:00 10/30/18 08:46 Apresoline PO 100 mg TID MATTHEW Administration Insulin Glargine 20 units/ 0.2 mls @ 0.2 mls/hr 10/26/18 21:00 10/29/18 21:35 Miscellaneous Medication SC 0.2 mls HS MATTHEW Administration Insulin Human Lispro 0 units 10/23/18 09:02 10/30/18 12:43 Humalog SC 3 unit .MILD SLIDING SCALE PRN Administration Mild Correctional Scale Insulin Human Lispro 0 units 10/23/18 09:02 10/29/18 21:35 Humalog SC 4 unit .BEDTIME SLIDING SC PRN Administration Bedtime Correctional Scale Isosorbide Mononitrate 120 mg 10/30/18 09:00 10/30/18 08:48 Imdur PO 120 mg DAILY MATTHEW Administration Levetiracetam 1,000 mg 10/23/18 09:00 10/30/18 08:46 Keppra PO 1,000 mg BID MATTHEW Administration Levothyroxine Sodium 125 mcg 10/24/18 06:00 10/30/18 06:23 Synthroid PO 125 mcg 0600 MATTHEW Administration Lisinopril 40 mg 10/23/18 09:00 10/30/18 08:46 Zestril PO 40 mg DAILY MATTHEW Administration Magnesium Oxide 400 mg 10/28/18 21:00 10/30/18 08:48 Magnesium Oxide PO 400 mg BID MATTHEW Administration Melatonin 4.5 mg 10/23/18 12:15 10/29/18 20:10 Melatonin PO 4.5 mg HSPRN PRN Administration Insomnia Mometasone Furoate/Formoterol Fumar 2 puff 10/28/18 18:30 10/30/18 07:26 Dulera 200 Mcg/5 Mcg Inhaler INH 2 puff BID-RT MATTHEW Administration Sodium Chloride 10 ml 10/23/18 21:00 10/30/18 08:49 Flush - Normal Saline IVF Not Given Q12HR MATTHEW Sodium Chloride 10 ml 10/26/18 11:06 10/28/18 12:10 Flush - Normal Saline IVF 10 ml PRN PRN Administration Saline Flush Vancomycin HCl 125 mg 10/29/18 18:00 10/30/18 12:42 First Vancomycin PO 125 mg Q6HR MATTHEW Administration Zolpidem Tartrate 5 mg 10/23/18 08:58 10/29/18 20:11 Ambien PO 5 mg HSPRN PRN Administration Insomnia - Exam awake alert Eye: anicteric sclera ENT: normocephalic atraumatic Neck: supple Heart: RRR Respiratory: no rales Respiratory - other findings: fair air entry bilaterally with few scattered transmitted sound and rhonchi Gastrointestinal: soft, normal bowel sounds Extremities: no cyanosis, no edema Neurological: CN's grossly intact, no focal deficits Hosp A/P (1) Type 2 AMI (acute myocardial infarction) Code(s): I21.A1 - MYOCARDIAL INFARCTION TYPE 2 Status: Acute (2) Paroxysmal atrial fibrillation with RVR Code(s): I48.0 - PAROXYSMAL ATRIAL FIBRILLATION Status: Acute (3) Anemia, normocytic normochromic Code(s): D64.9 - ANEMIA, UNSPECIFIED Status: Acute (4) Carotid atherosclerosis Code(s): I65.29 - OCCLUSION AND STENOSIS OF UNSPECIFIED CAROTID ARTERY Status : Acute (5) Diabetes mellitus Code(s): E11.9 - TYPE 2 DIABETES MELLITUS WITHOUT COMPLICATIONS Status: Acute (6) Physical deconditioning Code(s): R53.81 - OTHER MALAISE Status: Acute (7) DM2 (diabetes mellitus, type 2) Status: Chronic (8) HLD (hyperlipidemia) Code(s): E78.5 - HYPERLIPIDEMIA, UNSPECIFIED Status: Chronic (9) HTN (hypertension) Code(s): I10 - ESSENTIAL (PRIMARY) HYPERTENSION Status: Chronic (10) Hypothyroidism Code(s): E03.9 - HYPOTHYROIDISM, UNSPECIFIED Status: Chronic (11) Acute and chronic respiratory failure with hypoxia Code(s): J96.21 - ACUTE AND CHRONIC RESPIRATORY FAILURE WITH HYPOXIA Status: Acute (12) Acute on chronic diastolic heart failure Code(s): I50.33 - ACUTE ON CHRONIC DIASTOLIC (CONGESTIVE) HEART FAILURE Status : Acute (13) Gait instability Code(s): R26.81 - UNSTEADINESS ON FEET Status: Acute (14) Clostridioides difficile diarrhea Code(s): A04.72 - ENTEROCOLITIS D/T CLOSTRIDIUM DIFFICILE, NOT SPCF RECUR Status: Acute - Plan Restart hydralazine at a lower dose. monitor BP and increase antihypertensives to get better BP control. Continue oral lasix and increase oral supplementation Continue oral vancomycin and other treatments. Increase activity
[2018-10-30] MEDS: Potassium Chloride 10 MEQ TAB PO SCH (16:09)
[2018-10-30] MEDS: Insulin Glargine 20 UNITS in Pre-Filled Syringe 1 EACH SC SCH (20:55)
[2018-10-30] MEDS: Atorvastatin Calcium 40 MG TAB PO SCH (21:14)
[2018-10-30] MEDS: Melatonin 3 MG TAB PO PRN (21:35)
[2018-10-30] MEDS: Zolpidem Tartrate 5 MG TAB PO PRN (23:38)
[2018-10-31] MEDS: Levothyroxine Sodium 125 MCG TAB PO SCH (05:49)
[2018-10-31] MEDS: Vancomycin HCl 25 MG/ML Oral PO SCH ×3 (05:49→17:35)
[2018-10-31 06:32] LABS: Band 18 % (5-11); Eosinophils 1 % (0-10); Hemoglobin 8.6 g/dL (12.0-16.0); Lymphocytes 18 % (21-51); MDiff Complete? YES; Mean Corpuscular HGB CONC 32.3 g/dL (32.0-36.0); Mean Corpuscular Hemoglobin 30.2 pg (27.0-31.0); Mean Corpuscular Volume 93.2 fL (78.0-98.0); Mean Platelet Volume 7.1 fL (7.4-10.4); Monocytes 9 % (0-10); Neutrophil 54 % (42-75); Platelet Count 197 thou/uL (130-400); Platelet Morphology Comment Appears Adequate; RBC Distribution Width 14.1 % (11.5-14.5); Red Blood Cell (RBC) Count 2.85 mill/uL (4.20-5.40); White Blood Cell (WBC) Count 4.2 thou/uL (4.8-10.8)
[2018-10-31 06:46] LABS: Albumin 3.4 g/dL (3.4-4.8); Anion Gap 10 mmol/L (10-20); BUN (Urea Nitrogen) 13 mg/dL (9.8-20.1); BUN/Creatinine Ratio 21.67; Calc. Creatinine Clearance 104 mL/min (70-130); Calcium 9.1 mg/dL (7.8-10.44); Carbon Dioxide 29 mmol/L (23-31); Chloride 106 mmol/L (98-107); Estimated GFR-MDRD Greater than 90; Glucose 150 mg/dL (83-110); Phosphorus 3.4 mg/dL (2.3-4.7); Potassium 3.8 mmol/L (3.5-5.1); Sodium 141 mmol/L (136-145)
[2018-10-31] MEDS: Mometasone/Formoterol 120 PUFF INHALER INH SCH ×2 (06:48→19:02)
[2018-10-31] MEDS: hydrALAZINE 25 MG TAB PO SCH ×3 (08:57→22:09)
[2018-10-31] MEDS: Aspirin 81 mg Enteric Coated Tablet PO SCH (08:57)
[2018-10-31] MEDS: Potassium Chloride 10 MEQ TAB PO SCH ×2 (08:57→17:34)
[2018-10-31] MEDS: Lisinopril 20 MG TAB PO SCH (08:58)
[2018-10-31] MEDS: levETIRAcetam 500 MG TAB PO SCH ×2 (08:58→22:10)
[2018-10-31] MEDS: Furosemide 20 MG TAB PO SCH (08:58)
[2018-10-31] MEDS: Carvedilol 6.25 MG TAB PO SCH ×2 (08:58→22:09)
[2018-10-31] MEDS: Digoxin 0.25 MG TAB PO SCH (08:59)
[2018-10-31] MEDS: Anastrozole 1 MG TAB PO SCH (08:59)
[2018-10-31] MEDS: Magnesium Oxide 400 MG TAB PO SCH ×2 (08:59→22:09)
[2018-10-31] MEDS: HumaLOG 300 UNITS/3 ML VIAL SC PRN ×2 (12:22→17:35)
--- NOTE | 2018-10-31 14:33 | PDOC.HOSPP ---
- Subjective Encounter Date: 10/31/18 Encounter Time: 08:31 Subjective: 83 y/o female with multiple co morbidities including CAD, PVD, COPD, recently discharged from following treatment for acute respiratory failure due to atelecatasis./pneumonia after chest trauma following a fall, now readmitted with acute chest pain associated with SOB. Found to have acute NSTEMI. Patient and family elected medical mgt. Chest pain and SOB have subsided but patient later developed paroxysmal A fib with RVR associated with SOB which was treated with digoxin with adequate rate control. She also was transfused 1 unit of PRBC for acute on chronic anemia in the face of NSTEMI. Developed frequent loose stools and was found to have C dif hence now on oral vanc. Had a family meeting on 10/28/2018 and retirement placement with hospice was agreed. Awaiting placement. - Objective Vital Signs & Weight: Vital Signs (12 hours) Temp Pulse Resp BP Pulse Ox 10/31/18 13:18 90 16 96 10/31/18 12:21 98.3 F 84 22 H 149/65 H 96 10/31/18 08:59 99 10/31/18 08:54 98.2 F 99 20 186/81 H 96 10/31/18 06:51 98 10/31/18 06:49 86 16 98 10/31/18 04:53 87 22 H 98 10/31/18 04:43 96.6 F L 90 24 H 174/81 H 96 Weight Weight 201 lb Most Recent Monitor Data Heart Rate from ECG 90 NIBP 144/85 NIBP BP-Mean 104 Respiration from ECG 24 SpO2 96 I&O: 10/30/18 10/31/18 11/01/18 06:59 06:59 06:59 Intake Total 1220 350 Output Total 850 1400 Balance 370 -1050 Result Diagrams: 10/31/18 05:59 10/31/18 05:59 Additional Labs: Accuchecks 10/31/18 10/31/18 10/30/18 11:34 05:28 20:35 POC Glucose 243 H 162 H 206 H 10/30/18 16:53 POC Glucose 189 H ROS - Medication Medications: Active Medications Generic Name Dose Route Start Last Admin Trade Name Freq PRN Reason Stop Dose Admin Acetaminophen 650 mg 10/23/18 08:58 10/30/18 08:47 Tylenol PO 650 mg Q4H PRN Administration Headache/Fever/Mild Pain (1-3) Albuterol/Ipratropium 3 ml 10/23/18 13:00 10/31/18 13:18 Duoneb NEB 3 ml [id number] MATTHEW Administration Albuterol/Ipratropium 3 ml 10/28/18 11:10 10/31/18 04:53 Duoneb NEB 3 ml Q2H PRN Administration SOB &/or Wheezing Anastrozole 1 mg 10/25/18 09:00 10/31/18 08:59 Arimidex PO 1 mg DAILY MATTHEW Administration Aspirin 81 mg 10/25/18 09:00 10/31/18 08:57 Ecotrin PO 81 mg DAILY MATTHEW Administration Atorvastatin Calcium 80 mg 10/23/18 21:00 10/30/18 21:14 Lipitor PO 80 mg HS MATTHEW Administration Carvedilol 12.5 mg 10/23/18 09:00 10/31/18 08:58 Coreg PO 12.5 mg BID MATTHEW Administration Digoxin 0.125 mg 10/28/18 09:00 10/31/18 08:59 Lanoxin PO 0.125 mg DAILY MATTHEW Administration Furosemide 40 mg 10/31/18 09:00 10/31/18 08:58 Lasix PO 40 mg DAILY MATTHEW Administration Hydralazine HCl 100 mg 10/27/18 15:00 10/31/18 08:57 Apresoline PO 100 mg TID MATTHEW Administration Insulin Glargine 20 units/ 0.2 mls @ 0.2 mls/hr 10/26/18 21:00 10/30/18 20:55 Miscellaneous Medication SC 0.2 mls HS MATTHEW Administration Insulin Human Lispro 0 units 10/23/18 09:02 10/31/18 12:22 Humalog SC 3 unit .MILD SLIDING SCALE PRN Administration Mild Correctional Scale Insulin Human Lispro 0 units 10/23/18 09:02 10/29/18 21:35 Humalog SC 4 unit .BEDTIME SLIDING SC PRN Administration Bedtime Correctional Scale Isosorbide Mononitrate 120 mg 10/30/18 09:00 10/31/18 08:57 Imdur PO 120 mg DAILY MATTHEW Administration Levetiracetam 1,000 mg 10/23/18 09:00 10/31/18 08:58 Keppra PO 1,000 mg BID MATTHEW Administration Levothyroxine Sodium 125 mcg 10/24/18 06:00 10/31/18 05:49 Synthroid PO 125 mcg 0600 MATTHEW Administration Lisinopril 40 mg 10/23/18 09:00 10/31/18 08:58 Zestril PO 40 mg DAILY MATTHEW Administration Magnesium Oxide 400 mg 10/28/18 21:00 10/31/18 08:59 Magnesium Oxide PO 400 mg BID MATTHEW Administration Melatonin 4.5 mg 10/23/18 12:15 10/30/18 21:35 Melatonin PO 4.5 mg HSPRN PRN Administration Insomnia Mometasone Furoate/Formoterol Fumar 2 puff 10/28/18 18:30 10/31/18 06:48 Dulera 200 Mcg/5 Mcg Inhaler INH 2 puff BID-RT MATTHEW Administration Potassium Chloride 20 meq 10/30/18 17:00 10/31/18 08:57 Klor-Con 10 PO 20 meq BID-WM MATTHEW Administration Sodium Chloride 10 ml 10/23/18 21:00 10/31/18 08:59 Flush - Normal Saline IVF 10 ml Q12HR MATTHEW Administration Sodium Chloride 10 ml 10/26/18 11:06 10/28/18 12:10 Flush - Normal Saline IVF 10 ml PRN PRN Administration Saline Flush Vancomycin HCl 125 mg 10/29/18 18:00 10/31/18 12:23 First Vancomycin PO 125 mg Q6HR MATTHEW Administration Zolpidem Tartrate 5 mg 10/23/18 08:58 10/30/18 23:38 Ambien PO 5 mg HSPRN PRN Administration Insomnia - Exam awake alert General - other findings: mild respiratory distress Eye: anicteric sclera ENT: normocephalic atraumatic, moist mucosa Neck: supple Heart: irregular Respiratory: no rales Respiratory - other findings: Diminished air movement both lung menendez Gastrointestinal: soft, non-tender, non-distended, normal bowel sounds Extremities: no cyanosis, no edema Neurological: CN's grossly intact, no focal deficits Musculoskeletal: generalized weakness Psychiatric: normal affect, A&O x 3 Hosp A/P (1) Type 2 AMI (acute myocardial infarction) Code(s): I21.A1 - MYOCARDIAL INFARCTION TYPE 2 Status: Acute (2) Paroxysmal atrial fibrillation with RVR Code(s): I48.0 - PAROXYSMAL ATRIAL FIBRILLATION Status: Acute (3) Anemia, normocytic normochromic Code(s): D64.9 - ANEMIA, UNSPECIFIED Status: Acute (4) Carotid atherosclerosis Code(s): I65.29 - OCCLUSION AND STENOSIS OF UNSPECIFIED CAROTID ARTERY Status : Acute (5) Diabetes mellitus Code(s): E11.9 - TYPE 2 DIABETES MELLITUS WITHOUT COMPLICATIONS Status: Acute (6) Physical deconditioning Code(s): R53.81 - OTHER MALAISE Status: Acute (7) DM2 (diabetes mellitus, type 2) Status: Chronic (8) HLD (hyperlipidemia) Code(s): E78.5 - HYPERLIPIDEMIA, UNSPECIFIED Status: Chronic (9) HTN (hypertension) Code(s): I10 - ESSENTIAL (PRIMARY) HYPERTENSION Status: Chronic (10) Hypothyroidism Code(s): E03.9 - HYPOTHYROIDISM, UNSPECIFIED Status: Chronic (11) Acute and chronic respiratory failure with hypoxia Code(s): J96.21 - ACUTE AND CHRONIC RESPIRATORY FAILURE WITH HYPOXIA Status: Acute (12) Acute on chronic diastolic heart failure Code(s): I50.33 - ACUTE ON CHRONIC DIASTOLIC (CONGESTIVE) HEART FAILURE Status : Acute (13) Gait instability Code(s): R26.81 - UNSTEADINESS ON FEET Status: Acute (14) Clostridioides difficile diarrhea Code(s): A04.72 - ENTEROCOLITIS D/T CLOSTRIDIUM DIFFICILE, NOT SPCF RECUR Status: Acute - Plan Increase lasix to 40 mg daily Monitor BP and increase antihypertensives to get better BP control. Continue oral vancomycin and other treatments. Awaiting [facility] and hospice arrangement.\ continue oxygen supplementation.
[2018-10-31] MEDS: Insulin Glargine 20 UNITS in Pre-Filled Syringe 1 EACH SC SCH (22:08)
[2018-10-31] MEDS: Atorvastatin Calcium 40 MG TAB PO SCH (22:09)
[2018-11-01] MEDS: Vancomycin HCl 25 MG/ML Oral PO SCH ×4 (00:21→17:24)
[2018-11-01] MEDS: Zolpidem Tartrate 5 MG TAB PO PRN (00:22)
[2018-11-01] MEDS: Levothyroxine Sodium 125 MCG TAB PO SCH (05:21)
[2018-11-01] MEDS ORDERED: Furosemide 40 MG/4 ML VIAL SLOW IVP SCH (06:30)
[2018-11-01] MEDS: Mometasone/Formoterol 120 PUFF INHALER INH SCH ×2 (07:01→18:36)
[2018-11-01 07:22] LABS: Anion Gap 10 mmol/L (10-20); BUN (Urea Nitrogen) 14 mg/dL (9.8-20.1); Calc. Creatinine Clearance 101 mL/min (70-130); Calcium 9.3 mg/dL (7.8-10.44); Carbon Dioxide 33 mmol/L (23-31); Chloride 101 mmol/L (98-107); Estimated GFR-MDRD Greater than 90; Glucose 159 mg/dL (83-110); Magnesium 1.8 mg/dL (1.6-2.6); Potassium 3.6 mmol/L (3.5-5.1); Sodium 140 mmol/L (136-145)
[2018-11-01] MEDS ORDERED: Morphine 2 MG/ML SYRINGE SLOW IVP SCH ×2 (07:31→22:00)
[2018-11-01] MEDS: Magnesium Oxide 400 MG TAB PO SCH ×2 (08:20→22:05)
[2018-11-01] MEDS: Digoxin 0.25 MG TAB PO SCH (08:20)
[2018-11-01] MEDS: Potassium Chloride 10 MEQ TAB PO SCH ×2 (08:20→17:24)
[2018-11-01] MEDS: Anastrozole 1 MG TAB PO SCH (08:21)
[2018-11-01] MEDS: Aspirin 81 mg Enteric Coated Tablet PO SCH (08:21)
[2018-11-01] MEDS: Furosemide 20 MG TAB PO SCH (08:21)
[2018-11-01] MEDS: levETIRAcetam 500 MG TAB PO SCH ×2 (08:21→22:11)
[2018-11-01] MEDS: Carvedilol 6.25 MG TAB PO SCH ×2 (08:22→22:06)
[2018-11-01] MEDS: hydrALAZINE 25 MG TAB PO SCH ×3 (08:22→22:05)
[2018-11-01] MEDS: Lisinopril 20 MG TAB PO SCH (08:22)
--- NOTE | 2018-11-01 08:28 | RAD ---
CHEST ONE VIEW: 11/01/18 COMPARISON: 10/28/18. HISTORY: Dyspnea. Shortness of breath. FINDINGS: Enlarged cardiac silhouette. Atherosclerosis of the aorta. Persistent bilateral pleural and parenchym al changes. Degree of opacification has improved since compared to the prior examination. No pneumoth orax. IMPRESSION: Improved congestive heart failure. POS: [facility]
--- NOTE | 2018-11-01 11:33 | PDOC.HOSPP ---
- Subjective Encounter Date: 11/01/18 Encounter Time: 07:31 Subjective: 83 y/o female with multiple co morbidities including CAD, PVD, COPD, recently discharged from following treatment for acute respiratory failure due to atelecatasis./pneumonia after chest trauma following a fall, now readmitted with acute chest pain associated with SOB. Found to have acute NSTEMI. Patient and family elected medical mgt. Chest pain and SOB have subsided but patient later developed paroxysmal A fib with RVR associated with SOB which was treated with digoxin with adequate rate control. She also was transfused 1 unit of PRBC for acute on chronic anemia in the face of NSTEMI. Developed frequent loose stools and was found to have C dif hence now on oral vanc. Had a family meeting on 10/28/2018 and [facility] placement with hospice was agreed. Patient developed worsening SOB this morning and was treated with IV lasix and morphine with improvement. Stat chest x ray showed improving pulmonary congestion. No fever or chest pain. - Objective Vital Signs & Weight: Vital Signs (12 hours) Temp Pulse Resp BP Pulse Ox 11/01/18 08:18 97.8 F 94 24 H 192/87 H 96 11/01/18 07:01 89 22 H 96 11/01/18 04:00 97.1 F L 93 18 173/81 H 93 L 11/01/18 00:46 86 18 95 Weight Weight 201 lb 5 oz Most Recent Monitor Data Heart Rate from ECG 90 NIBP 144/85 NIBP BP-Mean 104 Respiration from ECG 24 SpO2 96 I&O: 10/31/18 11/01/18 11/02/18 06:59 06:59 06:59 Intake Total 350 1690 Output Total 1400 2075 Balance -1050 -385 Result Diagrams: 10/31/18 05:59 11/01/18 06:50 Additional Labs: Accuchecks 10/31/18 10/31/18 10/31/18 21:02 16:54 11:34 POC Glucose 288 H 209 H 243 H ROS - Medication Medications: Active Medications Generic Name Dose Route Start Last Admin Trade Name Freq PRN Reason Stop Dose Admin Acetaminophen 650 mg 10/23/18 08:58 10/30/18 08:47 Tylenol PO 650 mg Q4H PRN Administration Headache/Fever/Mild Pain (1-3) Albuterol/Ipratropium 3 ml 10/23/18 13:00 11/01/18 07:01 Duoneb NEB 3 ml [id number] MATTHEW Administration Albuterol/Ipratropium 3 ml 10/28/18 11:10 10/31/18 04:53 Duoneb NEB 3 ml Q2H PRN Administration SOB &/or Wheezing Anastrozole 1 mg 10/25/18 09:00 11/01/18 08:21 Arimidex PO 1 mg DAILY MATTHEW Administration Aspirin 81 mg 10/25/18 09:00 11/01/18 08:21 Ecotrin PO 81 mg DAILY MATTHEW Administration Atorvastatin Calcium 80 mg 10/23/18 21:00 10/31/18 22:09 Lipitor PO 80 mg HS MATTHEW Administration Carvedilol 12.5 mg 10/23/18 09:00 11/01/18 08:22 Coreg PO 12.5 mg BID MATTHEW Administration Digoxin 0.125 mg 10/28/18 09:00 11/01/18 08:20 Lanoxin PO 0.125 mg DAILY MATTHEW Administration Furosemide 40 mg 10/31/18 09:00 11/01/18 08:21 Lasix PO 40 mg DAILY MATTHEW Administration Hydralazine HCl 100 mg 10/27/18 15:00 11/01/18 08:22 Apresoline PO 100 mg TID MATTHEW Administration Insulin Glargine 20 units/ 0.2 mls @ 0.2 mls/hr 10/26/18 21:00 10/31/18 22:08 Miscellaneous Medication SC 0.2 mls HS MATTHEW Administration Insulin Human Lispro 0 units 10/23/18 09:02 10/31/18 17:35 Humalog SC 3 unit .MILD SLIDING SCALE PRN Administration Mild Correctional Scale Insulin Human Lispro 0 units 10/23/18 09:02 10/29/18 21:35 Humalog SC 4 unit .BEDTIME SLIDING SC PRN Administration Bedtime Correctional Scale Isosorbide Mononitrate 120 mg 11/01/18 09:00 11/01/18 08:21 Imdur PO 120 mg BID MATTHEW Administration Levetiracetam 1,000 mg 10/23/18 09:00 11/01/18 08:21 Keppra PO 1,000 mg BID MATTHEW Administration Levothyroxine Sodium 125 mcg 10/24/18 06:00 11/01/18 05:21 Synthroid PO 125 mcg 0600 MATTHEW Administration Lisinopril 40 mg 10/23/18 09:00 11/01/18 08:22 Zestril PO 40 mg DAILY MATTHEW Administration Magnesium Oxide 400 mg 10/28/18 21:00 11/01/18 08:20 Magnesium Oxide PO 400 mg BID MATTHEW Administration Melatonin 4.5 mg 10/23/18 12:15 10/30/18 21:35 Melatonin PO 4.5 mg HSPRN PRN Administration Insomnia Mometasone Furoate/Formoterol Fumar 2 puff 10/28/18 18:30 11/01/18 07:01 Dulera 200 Mcg/5 Mcg Inhaler INH 2 puff BID-RT MATTHEW Administration Potassium Chloride 20 meq 10/30/18 17:00 11/01/18 08:20 Klor-Con 10 PO 20 meq BID-WM MATTHEW Administration Sodium Chloride 10 ml 10/23/18 21:00 11/01/18 08:22 Flush - Normal Saline IVF 10 ml Q12HR MATTHEW Administration Sodium Chloride 10 ml 10/26/18 11:06 10/28/18 12:10 Flush - Normal Saline IVF 10 ml PRN PRN Administration Saline Flush Vancomycin HCl 125 mg 10/29/18 18:00 11/01/18 05:22 First Vancomycin PO 125 mg Q6HR MATTHEW Administration Zolpidem Tartrate 5 mg 10/23/18 08:58 11/01/18 00:22 Ambien PO 5 mg HSPRN PRN Administration Insomnia - Exam awake alert General - other findings: mild to moderate respiratory distress Eye: anicteric sclera ENT: normocephalic atraumatic Neck: supple, symmetric Heart: RRR Respiratory - other findings: decreased air movement with scattered rhonchi. work of breathing is increas Gastrointestinal: soft, non-tender, normal bowel sounds Gastrointestinal - other findings: mildly deistended Extremities: no cyanosis, no edema Neurological: CN's grossly intact, no focal deficits Neurological - other findings: Hard of hearing. Hearing aid malfunction limited conversation Hosp A/P (1) Acute and chronic respiratory failure with hypoxia Code(s): J96.21 - ACUTE AND CHRONIC RESPIRATORY FAILURE WITH HYPOXIA Status: Acute (2) Type 2 AMI (acute myocardial infarction) Code(s): I21.A1 - MYOCARDIAL INFARCTION TYPE 2 Status: Acute (3) Paroxysmal atrial fibrillation with RVR Code(s): I48.0 - PAROXYSMAL ATRIAL FIBRILLATION Status: Acute (4) Anemia, normocytic normochromic Code(s): D64.9 - ANEMIA, UNSPECIFIED Status: Acute (5) Carotid atherosclerosis Code(s): I65.29 - OCCLUSION AND STENOSIS OF UNSPECIFIED CAROTID ARTERY Status : Acute (6) Diabetes mellitus Code(s): E11.9 - TYPE 2 DIABETES MELLITUS WITHOUT COMPLICATIONS Status: Acute (7) Physical deconditioning Code(s): R53.81 - OTHER MALAISE Status: Acute (8) DM2 (diabetes mellitus, type 2) Status: Chronic (9) HLD (hyperlipidemia) Code(s): E78.5 - HYPERLIPIDEMIA, UNSPECIFIED Status: Chronic (10) HTN (hypertension) Code(s): I10 - ESSENTIAL (PRIMARY) HYPERTENSION Status: Chronic (11) Hypothyroidism Code(s): E03.9 - HYPOTHYROIDISM, UNSPECIFIED Status: Chronic (12) Acute on chronic diastolic heart failure Code(s): I50.33 - ACUTE ON CHRONIC DIASTOLIC (CONGESTIVE) HEART FAILURE Status : Acute (13) Gait instability Code(s): R26.81 - UNSTEADINESS ON FEET Status: Acute (14) Clostridioides difficile diarrhea Code(s): A04.72 - ENTEROCOLITIS D/T CLOSTRIDIUM DIFFICILE, NOT SPCF RECUR Status: Acute - Plan Lasix 40 mg and morphine 2 mg IV stat. Increase imdur to 120 bid to get BP control. Continue lasix PO 40 mg daily Continue oral vancomycin For discharge once placement is concluded continue oxygen supplementation.
[2018-11-01] MEDS: HumaLOG 300 UNITS/3 ML VIAL SC PRN ×2 (12:31→17:24)
[2018-11-01] MEDS: Insulin Glargine 20 UNITS in Pre-Filled Syringe 1 EACH SC SCH (22:07)
[2018-11-01] MEDS ORDERED: Atorvastatin Calcium 20 MG TAB PO SCH (22:15)
[2018-11-01] MEDS: Atorvastatin Calcium 20 MG TAB PO SCH ×2 (22:37→22:40)
[2018-11-02] MEDS: Atorvastatin Calcium 40 MG TAB PO SCH (00:19)
[2018-11-02] MEDS: Vancomycin HCl 25 MG/ML Oral PO SCH ×3 (00:45→12:10)
[2018-11-02] MEDS: Levothyroxine Sodium 125 MCG TAB PO SCH (05:54)
[2018-11-02] MEDS: Mometasone/Formoterol 120 PUFF INHALER INH SCH (06:48)
[2018-11-02] MEDS: Potassium Chloride 10 MEQ TAB PO SCH (09:09)
[2018-11-02] MEDS: Aspirin 81 mg Enteric Coated Tablet PO SCH (09:09)
[2018-11-02] MEDS: Anastrozole 1 MG TAB PO SCH (09:09)
[2018-11-02] MEDS: Furosemide 20 MG TAB PO SCH (09:10)
[2018-11-02] MEDS: Carvedilol 6.25 MG TAB PO SCH (09:10)
[2018-11-02] MEDS: Digoxin 0.25 MG TAB PO SCH (09:10)
[2018-11-02] MEDS: Lisinopril 20 MG TAB PO SCH (09:11)
[2018-11-02] MEDS: levETIRAcetam 500 MG TAB PO SCH (09:11)
[2018-11-02] MEDS: hydrALAZINE 25 MG TAB PO SCH ×2 (09:11→14:14)
[2018-11-02] MEDS: Magnesium Oxide 400 MG TAB PO SCH (09:12)
[2018-11-02 12:03] VITALS: BP 136/65; TEMP 98
[2018-11-02] MEDS ORDERED: HYDROcodone/Acetaminophen 5/325 mg Tablet PO PRN (12:41)
--- NOTE | 2018-11-05 13:47 | EKG ---
Test Reason : Blood Pressure : / mmHG Vent. Rate : 130 BPM Atrial Rate : 130 BPM P-R Int : 130 ms QRS Dur : 076 ms QT Int : 302 ms P-R-T Axes : 029 016 018 degrees QTc Int : 444 ms Sinus tachycardia with Premature atrial complexes No STEMI Otherwise normal ECG Confirmed by RAYNA CARVAJAL M.D. ([id number]), sports editor CHERELLE JOHNSON ([id number]) on 11/05/2018 1:47:31 PM Referred By: Confirmed By:RAYNA CARVAJAL M.D.
== END 2018-11-02 14:57 | disposition hospice, inpatient (51) | DRG 280 ==
LOC: ERS 05:34 → CCU 07:36 → 2NO 10-24 23:16
PROVIDERS: ADMIT Internal Medicine; ATTEND Internal Medicine
PROC: 5A09457 Assistance with Respiratory Ventilation, 24-96 Consecutive Hours, Continuous Positive Airway Pressure (ICD-10-PCS; principal; 2018-10-23)
PROC: 30233N1 Transfusion of Nonautologous Red Blood Cells into Peripheral Vein, Percutaneous Approach (ICD-10-PCS; 2018-10-26)
DX: I21.A1 Myocardial infarction type 2 (principal); I50.33 Acute on chronic diastolic (congestive) heart failure; J96.21 Acute and chronic respiratory failure with hypoxia; A04.72 Enterocolitis due to Clostridium difficile, not specified as recurrent; Z66 Do not resuscitate; M19.90 Unspecified osteoarthritis, unspecified site; E03.9 Hypothyroidism, unspecified; E78.5 Hyperlipidemia, unspecified; F41.9 Anxiety disorder, unspecified; I65.22 Occlusion and stenosis of left carotid artery; I25.10 Atherosclerotic heart disease of native coronary artery without angina pectoris; G47.00 Insomnia, unspecified; D64.9 Anemia, unspecified; J44.9 Chronic obstructive pulmonary disease, unspecified; E11.51 Type 2 diabetes mellitus with diabetic peripheral angiopathy without gangrene; I11.0 Hypertensive heart disease with heart failure; I48.0 Paroxysmal atrial fibrillation; Z90.49 Acquired absence of other specified parts of digestive tract; Z87.891 Personal history of nicotine dependence; Z88.8 Allergy status to other drugs, medicaments and biological substances; Z79.82 Long term (current) use of aspirin; Z79.899 Other long term (current) drug therapy; Z79.4 Long term (current) use of insulin; Z79.52 Long term (current) use of systemic steroids; Z86.73 Personal history of transient ischemic attack (TIA), and cerebral infarction without residual deficits; Z85.3 Personal history of malignant neoplasm of breast
CPT/HCPCS: 36415; 36416; 36430; 71045; 80048; 80053; 80069; 80162; 81003; 82553; 82805; 83735; 83880; 84484; 85007; 85025; 85027; 86850; 86900; 86901; 87045; 87046; 87081; 87086; 87324; 87449; 87493; 87899; 93005; 93798; 94640; 94660; 96365; 96366; 96368; 96372; 96375; J0692; J1160; J1650; J1815; J1940; J2270; J2916; J3475; J3490; J7620; P9016